=== PATIENT | female | born 1955 | race Caucasian/White ===

== ENCOUNTER 2020-05-28 15:22 | Emergency (ER) | payer MEDICARE, MEDICAID ==
[~2020-05-28] VITALS: Ht 152.4 cm; Wt 67.0 kg
[~2020-05-28 15:22] MED LIST: ALBU90AE IH; BUPR200T PO; CALC-793 PO; CARV3.1289 PO; CYCL-394 PO; DIVA-76 PO; GABA-532 PO; MELO-100 PO; OLAN15TA3 PO; SPIIN INH
--- NOTE | 2020-05-28 16:13 | NUR ---
pt is being seen by provider LIZET Buck at bedside pt is cooperative
[2020-05-28] MEDS ORDERED: LORazepam 1 MG tablet PO ONE (16:20)
[2020-05-28] MEDS ORDERED: acetaminophen 325mg tablet PO ONE (16:20)
[2020-05-28 16:35] LABS: BASOPHILS # (AUTO) 0.1 X10'3 (0-0.2); EOSINOPHILS # (AUTO) 0.2 X10'3 (0-0.9); EOSINOPHILS % (AUTO) 2.7 % (0-6); HEMATOCRIT 40.9 % (35.0-45.0); HEMOGLOBIN 13.6 g/dl (12.0-16.0); LYMPHOCYTES # (AUTO) 2.2 X10'3 (1.1-4.8); LYMPHOCYTES % (AUTO) 24.8 % (21-51); MEAN CORPUSCULAR HEMOGLOBIN 31.9 PG (27.0-31.0); MEAN CORPUSCULAR HGB CONC 33.2 g/dL (33.0-36.5); MEAN CORPUSCULAR VOLUME 96.1 FL (78-98); MEAN PLATELET VOLUME 7.8 FL (7.4-10.4); MONOCYTES # (AUTO) 0.7 X10'3 (0-0.9); MONOCYTES % (AUTO) 8.5 % (2-12); NEUTROPHILS # (AUTO) 5.5 X10'3 (1.8-7.7); PLATELET COUNT 321 X10'3 (140-440); RED BLOOD COUNT 4.25 X10'6 (4.20-5.60); WHITE BLOOD COUNT 8.7 X10'3 (4.5-11.0)
[2020-05-28] MEDS ORDERED: ATOR40TA PO (16:35)
[2020-05-28] MEDS ORDERED: CARV-50 PO (16:35)
[2020-05-28] MEDS ORDERED: QUET-1 PO (16:35)
[2020-05-28 16:39] LABS: ALANINE AMINOTRANSFERASE 48 U/L (12-78); ALBUMIN 3.6 G/DL (3.4-5.0); ALBUMIN/GLOBULIN RATIO 0.9 (1.1-1.5); ALKALINE PHOSPHATASE 153 IU/L (46-116); ANION GAP 9 (8-16); ASPARTATE AMINO TRANSFERASE 39 U/L (10-37); BILIRUBIN,TOTAL 0.4 MG/DL (0.1-1.0); BLOOD UREA NITROGEN 13 MG/DL (7-18); CALCIUM 9.2 MG/DL (8.5-10.1); CHLORIDE 108 MMOL/L (99-107); CREATININE 1.44 MG/DL (0.40-0.90); GLUCOSE 88 MG/DL (70-104); POTASSIUM 4.7 MMOL/L (3.5-5.1); SODIUM 142 MMOL/L (135-145); TOTAL PROTEIN 7.5 G/DL (6.4-8.2); eGFR 36 ML/MIN
[2020-05-28] MEDS ORDERED: LISI1TAB32 PO (16:44)
[2020-05-28] MEDS ORDERED: MIRT45TA83 PO (16:45)
[2020-05-28] MEDS ORDERED: PANT20TA3 PO (16:46)
[2020-05-28 16:48] LABS: ETHANOL < 0.010 GM/DL (0.0-0.010)
[2020-05-28] MEDS ORDERED: CLON-529 PO (16:48)
--- NOTE | 2020-05-28 16:57 | NUR ---
pt is supine in bed, no s/s of agitation observed
[2020-05-28] MEDS ORDERED: albuterol 2.5 MG/3 ML nebule NEB PRN (17:20)
[2020-05-28] MEDS ORDERED: ipratropium 0.5 MG/2.5ML nebule IH PRN (17:30)
--- NOTE | 2020-05-28 17:59 | NUR ---
pt is laying on her rightside, sleeping, regular breathing present
--- NOTE | 2020-05-28 19:15 | NUR ---
BREAKING PRIMARY RN. PT'S RESTING WITH NO SIGNS OF DISTRESS OR DISCOMFORT. WILL CONTINUE TO MONITOR.
[2020-05-28] MEDS: buPROPion SR 100mg tab PO SCH (20:14)
[2020-05-28] MEDS: cloNIDine 0.1 mg tablet PO SCH (20:14)
[2020-05-28] MEDS: carVEDilol 3.125mg tablet PO SCH (20:15)
[2020-05-28] MEDS: gabapentin 300mg capsule PO SCH (20:15)
--- NOTE | 2020-05-28 20:15 | NUR ---
pt was woken up to take meds, she was acceting of care, no anxiety apparent, laid back down and went to sleep
[2020-05-28] MEDS ORDERED: quetiapine 100mg tablet PO SCH (21:00)
[2020-05-28] MEDS ORDERED: mirtazapine 15mg tablet PO SCH (21:00)
[2020-05-28] MEDS ORDERED: olanzapine 10mg tablet PO SCH (21:00)
--- NOTE | 2020-05-28 21:11 | NUR ---
pt sleeping on her right side, no s/s anxiety
--- NOTE | 2020-05-28 22:05 | NUR ---
BREAKING PRIMARY RN. PT SLEEPING WITH NO SIGNS OF DISTRESS OR DISCOMFORT. WILL CONTINUE TO MONITOR.
--- NOTE | 2020-05-28 22:57 | NUR ---
pt is sleeping regular breathing present, will continue to monitor
--- NOTE | 2020-05-28 23:56 | NUR ---
TAKING OVER PT'S CARE; CONTINUES TO REST WITH NO SIGNS OF DISTRESS OR DISCOMFORT. WILL CONTINUE TO MONITOR.
--- NOTE | 2020-05-29 00:40 | NUR ---
PT CONTINUES TO REST ON RIGHT SIDE. NO SIGNS OF DISTRESS OR DISCOMFORT. WILL CONTINUE TO MONITOR.
--- NOTE | 2020-05-29 01:18 | NUR ---
PATIENT ON RIGHT SIDED QUINONEZ,RESPIRATIONS REGULAR.
--- NOTE | 2020-05-29 02:33 | NUR ---
PT SLEEPING ON LEFT SIDE; WITH NO SIGNS OF DISTRESS OR DISCOMFORT. WILL CONTINUE TO MONITOR.
--- NOTE | 2020-05-29 03:49 | NUR ---
PT CONTINUES TO SLEEP ON RIGHT SIDE WITH NO SIGNS OF DISTRESS OR DISCOMFORT. WILL CONTINUE TO MONITOR.
--- NOTE | 2020-05-29 06:21 | NUR ---
TAKEN OVER FROM JAI RN ,PT SLEEPING IN BED IN RGT LATERAL POSITION ,NO DISTRESS NOTED RR UNLABORED AND EVEN.
[2020-05-29] MEDS ORDERED: pantoprazole 40mg Tablet.DR PO SCH (07:30)
[2020-05-29] MEDS: buPROPion SR 100mg tab PO SCH (07:54)
[2020-05-29] MEDS: cloNIDine 0.1 mg tablet PO SCH (07:54)
[2020-05-29] MEDS: gabapentin 300mg capsule PO SCH (07:56)
[2020-05-29] MEDS: carVEDilol 3.125mg tablet PO SCH (07:56)
[2020-05-29] MEDS ORDERED: atorvastatin 20mg tablet PO SCH (08:00)
[2020-05-29] MEDS ORDERED: lisinopril 10 MG tablet PO SCH (08:00)
[2020-05-29] MEDS ORDERED: HYDROchlorothiazide 12.5mg capsule PO SCH (08:00)
--- NOTE | 2020-05-29 08:01 | NUR ---
pt morning meds given with gram crackers and orange juice ,pt tray is not here ,pt up in bed ,went to use restroom able to collect the urine sample.pt cooperative ,obey commands,denies any concern at this time.
[2020-05-29 08:03] VITALS: BP 156/87
[2020-05-29 08:47] LABS: CLARITY,URINE CLOUDY (Clear); COLOR,URINE YELLOW (Yellow); GLUCOSE, URINE NEGATIVE (Neg); KETONES,URINE NEGATIVE (Neg); LEUKOCYTE ESTERASE ,URINE TRACE (Neg); NITRITES, URINE NEGATIVE (Neg); OCCULT BLOOD,URINE NEGATIVE (Neg); PH,URINE 7.5 (4.8-8.0); PROTEIN,URINE NEGATIVE (Neg); UROBILINOGEN,URINE 0.2 E.U/dL (0.2-1.0)
[2020-05-29 08:49] LABS: UA COLLECTION TYPE CLN CATCH MIDSTREAM
[2020-05-29 08:53] LABS: URINE AMPHETAMINE SCREEN NEGATIVE (Neg); URINE BARBITUATE SCREEN NEGATIVE (Neg); URINE BENZODIAZEPINES SCREEN NEGATIVE (Neg); URINE CANNABINOID SCREEN POSITIVE (Neg); URINE COCAINE SCREEN NEGATIVE (Neg); URINE METHADONE SCREEN NEGATIVE (Neg); URINE OPIATE SCREEN NEGATIVE (Neg); URINE PHENCYCLIDINE SCREEN NEGATIVE (Neg)
[2020-05-29 08:56] LABS: BACTERIA,URINE 2+ /HPF (Neg); MUCUS STRANDS MODERATE /LPF (Neg); RBC,URINE 0-2 /HPF (0-2); SQUAMOUS EPITHELIAL CELL,UR MANY /LPF (FEW); WBC,URINE 0-4 /HPF (0-4)
[2020-05-29 08:57] LABS: TRANSITIONAL EPI CELLS,URINE FEW /HPF
[2020-05-29] MEDS ORDERED: ALB0.5UD IH (15:16)
[2020-05-29] MEDS ORDERED: CARV3.12 PO (15:16)
[2020-05-29] MEDS ORDERED: PANT-47 PO (15:16)
== END 2020-05-29 09:28 | disposition home or self-care (01) ==
LOC: ER 15:23
DX: R45.851 Suicidal ideations (principal); J45.909 Unspecified asthma, uncomplicated; G89.29 Other chronic pain; F31.9 Bipolar disorder, unspecified; F20.9 Schizophrenia, unspecified; F12.90 Cannabis use, unspecified, uncomplicated; Z86.69 Personal history of other diseases of the nervous system and sense organs; Z98.890 Other specified postprocedural states; Z56.0 Unemployment, unspecified; Z88.5 Allergy status to narcotic agent; Z88.6 Allergy status to analgesic agent; Z79.899 Other long term (current) drug therapy
CPT/HCPCS: 36415; 80053; 80305; 80320; 81001; 84443; 85025; 94760; 99285

== ENCOUNTER 2020-05-29 01:08 | Inpatient (IN) | payer MEDICARE, MEDICAID ==
[~2020-05-29] VITALS: Ht 152.4 cm; Wt 68.9 kg
[~2020-05-29 01:08] MED LIST changes: +ATOR40TA PO; -CALC-793 PO; +CLON-529 PO; -CYCL-394 PO; -DIVA-76 PO; +LISI1TAB32 PO; -MELO-100 PO; +MIRT45TA83 PO; +PANT20TA3 PO; +QUET-1 PO
--- NOTE | 2020-05-29 09:25 | NUR ---
Admission Note: Pt. admitted from the ER at approximately 0925, brought up in a W/C by Sly Durbin and security. Safety check and belongings inventoried by Sly Durbin (pt. had some marijuana in her possession and did not have anyone available to come and pick it up, so it was given to security to be destroyed). She has 4 rings on bilateral fingers which she was unable to get off, they remain with the pt., but are added to pt's inventory list. Pt. presented to the ER after being referred by her psychiatrist, Dr. Jacinto. She reported depression and S/I during the past couple of months. Also, A/VILLAREAL that tell her to, "Sit in the middle of the street and see what happens." Pt. does admit to a history of S/A as well. Pt. was compliant with the admission process, however affect flat and she appears depressed and anxious. She continues to report S/I and command A/VILLAREAL, and rates as a high suicide risk on the [facility] Suicide Assessment. However, pt. is able to contract for safety while on the unit, LIZET Duke notified and has ordered Q 15min safety checks at this time (notify her of any changes). Pt. is a daily smoker and uses marijuana, last use was yesterday. She has a chronic non-productive cough, however denies any SOB, V/S are WNL, and lung sounds are clear (pt. compliant with wearing a mask while on the unit, will continue to monitor). Pt. does wear oxygen at HS via nasal cannula, LIZET Duke is aware (order for 1-2 Liters at HS, titrate to keep oxygen saturation above 92%). Pt. also uses a cane at home, will obtain a FWW from PT for pt's use.
[2020-05-29] MEDS ORDERED: mag hydrox/Alum hydrox/simeth 30ml oral suspension PO PRN (09:50)
[2020-05-29] MEDS ORDERED: magnesium hydroxide 30ml (MOM) UD suspension PO PRN (09:50)
[2020-05-29 10:51] VITALS: BP 118/82
[2020-05-29] MEDS: LORazepam 1 MG tablet PO PRN ×3 (11:21→20:27)
[2020-05-29] MEDS: acetaminophen 325mg tablet PO PRN (11:22)
--- NOTE | 2020-05-29 12:33 | NUR ---
Pt. reported anxiety and exhibited anxiety AEB by constant muscle movements while sitting. PRN Ativan 1mg administered with some effectiveness, however pt. continued to report/exhibit anxiety, additional MRX1 order for Ativan 1mg administered, will monitor.
--- NOTE | 2020-05-29 14:25 | NUR ---
Malnutrition Consult "15 pound wt loss r/t decreased appetite": Pt admit w/ SI hx COPD, congenital heart failure, HTN, smoking, and prior SI per EMR. Pt has no significant weakness, no edema, skin intact, BMI 29 via standing scale wt this admit, and well-developed/well-nourished per MD note. Pt has no accurate wt hx and refused breakfast this AM since ate prior to transfer in ER per RN note. At this time pt does not meet minimum malnutrition criteria. Will continue to monitor. Addendum: 05/29/20 at [address] Amended: Links added.
[2020-05-29] MEDS ORDERED: loperamide 2mg capsule PO PRN (14:40)
[2020-05-29] MEDS ORDERED: ALB0.5UD IH (15:16)
[2020-05-29] MEDS ORDERED: PANT-47 PO (15:16)
[2020-05-29] MEDS ORDERED: CARV3.12 PO (15:16)
[2020-05-29] MEDS ORDERED: ipratropium 0.5 MG/2.5ML nebule IH PRN (16:15)
[2020-05-29 19:56] VITALS: BP 107/58
[2020-05-29] MEDS: cloNIDine 0.1 mg tablet PO SCH (20:00)
[2020-05-29] MEDS: carVEDilol 3.125mg tablet PO SCH (20:26)
[2020-05-29] MEDS: buPROPion SR 100mg tab PO SCH (20:26)
[2020-05-29] MEDS: mirtazapine 15mg tablet PO SCH (20:26)
[2020-05-29] MEDS: olanzapine 10mg tablet PO SCH (20:26)
[2020-05-29] MEDS: quetiapine 100mg tablet PO SCH (20:26)
[2020-05-29] MEDS: gabapentin 300mg capsule PO SCH (20:26)
--- NOTE | 2020-05-30 | NUR ---
Nursing Progress Note: Macie Legal hold: Vol Client on voluntary status for DTS. Report received from CASEY Isaac with use of SBAR. Why are they here: Pt. presented to the ER after being referred by her psychiatrist, Dr. Jacinto. She reported depression and S/I during the past couple of months. Also, A/VILLAREAL that tell her to, "Sit in the middle of the street and see what happens." Pt. does admit to a history of S/A as well. Assessment What has happened this shift: Pt was in her room resting during shift change. Respirations are even an unlabored. She was cooperative during 1:1 physical assessment and took her HS meds. She also requested Ativan as she was having increased anxiety. She rates it a 8/10. When asked if she was feeling like hurting herself or others she states not right now. Asked patient about hallucinations and she endorses auditory hallucinations. She states that the voices tell her to hurt herself. Assured patient that she was in a safe place and she contracted to safety. Oxygen administration was initiated tonight and its set at 2/L/min. Pt does not complain of SOB but her oxygen saturation was 90%. Encouraged pt to eat as she has been refusing most of her meal but she refused. Pt remained isolative to her room for the remainder of the evening. S/I, H/I: Denies "not right now" A/VH: Endorses Auditory hallucinations that tell her to hurt herself Sleep: Currently sleeping, see sleep assessment for total hours ADL's: Independent, uses walker Group attendance: None during manager night Were meds taken: Yes Any med S/E: none reported or observed Mental Status Exam Appearance: Somewhat disheveled, wearing green unit scrubs, hair is messy and unkempt Eye contact: Good direct Behavior: Guarded, isolative Speech: Clear, normal rate and rhythm Mood: Depressed, anxious, somewhat irritable Affect: Flat Thought process: Mostly linear Thought Content: Meds, managing her anxiety and pain Cognition: Alert and oriented X3 Insight: Poor Judgment: Poor Interventions PRN's used: Ativan X1 Therapeutic interventions: 1:1 assessment, encouragement to express thoughts and feelings, active listening, monitoring of behaviors with intervention; limit setting and redirection as needed, maintained Q 15 minute safety checks, monitor medication therapeutic and side effects. Restraints/seclusion/emergency medication: N/A Justification of Continued Inpatient Treatment: Pt needs stabilization, she continues to require a safe and supportive environment with medication adjustments and monitoring to decrease risk of rehospitalization.
[2020-05-30] MEDS: temazepam 15mg capsule PO PRN ×2 (01:19→20:51)
[2020-05-30 08:00] VITALS: BP 113/60
[2020-05-30] MEDS: acetaminophen 325mg tablet PO PRN ×3 (08:18→20:51)
[2020-05-30] MEDS: LORazepam 1 MG tablet PO PRN ×2 (08:18→16:10)
[2020-05-30 08:35] LABS: CHOL/HDL RATIO 4.1 (0.00-4.99); CHOLESTEROL 154 MG/DL (0-200); HDL CHOLESTEROL 38 MG/DL (35-60); LDL CHOLESTEROL 87 MG/DL (50-100); TRIGLYCERIDES 217 MG/DL (20-135)
[2020-05-30 08:37] LABS: HEMOGLOBIN A1C 5.9 % (4.5-6.2)
[2020-05-30 09:00] VITALS: BP 140/88
[2020-05-30] MEDS: cloNIDine 0.1 mg tablet PO SCH ×2 (09:05→20:00)
[2020-05-30] MEDS: carVEDilol 3.125mg tablet PO SCH ×2 (09:05→20:44)
[2020-05-30] MEDS: HYDROchlorothiazide 12.5mg capsule PO SCH (09:06)
[2020-05-30] MEDS: atorvastatin 20mg tablet PO SCH (09:06)
[2020-05-30] MEDS: lisinopril 10 MG tablet PO SCH (09:06)
[2020-05-30] MEDS: gabapentin 300mg capsule PO SCH ×3 (09:07→20:44)
[2020-05-30] MEDS: pantoprazole 40mg Tablet.DR PO SCH (09:07)
[2020-05-30] MEDS: buPROPion SR 100mg tab PO SCH ×2 (09:07→20:44)
[2020-05-30] MEDS: albuterol 2.5 MG/3 ML nebule NEB PRN (09:31)
[2020-05-30] MEDS ORDERED: pneumococcal 23-VAL P-sac vacc 25 mcg/0.5ml vial IMVAC ONE (10:00)
--- NOTE | 2020-05-30 13:53 | NUR ---
Nursing Progress Note: Legal hold: Voluntary Client on voluntary status for DTS Report received from nurse with use of SBAR: Kizzy Guzmán RN Why are they here: Pt. presented to the ER after being referred by her psychiatrist, Dr. Jacinto. She reported depression and S/I during the past couple of months. Also, A/VILLAREAL that tell her to, "Sit in the middle of the street and see what happens." Pt. does admit to a history of S/A as well. Assessment What has happened this shift: Received pt. asleep in bed at the beginning of the shift oxygen via nasal cannula in place. She awoke for breakfast and 1:1 completed at bedside. Pt. presents as anxious, fatigued, guarded, and withdrawn. She reports anxiety 05/23 and appears visibly anxious AEB continuous body movements, she states, "I woke up thrashing and shaking like I was on a jungle gym." PRN Ativan administered with effectiveness, pt. also reports chronic back pain and Tylenol administered with some effectiveness. Pt. reports S/I with no current plan, she denies H/I, however reports ongoing depression and lack of appetite (eating approximately 25-50% of meals). Pt. also reports ongoing A/VILLAREAL, when questioned further she states, "They tell me I'm worthless and I should just ." Pt. continues to isolate in her room throughout the shift, however does attend meals interacting minimally with others. She requested additional Ativan in the afternoon. Pt's lung sounds present with bilateral wheezes, PRN BT administered with effectiveness. Pneumonia Vaccine administered in rt. deltoid per LIZET Duke, will endorse to Noc shift. S/I, H/I: Reports S/I without a plan A/VH: Pt. also reports ongoing A/VILLAREAL, when questioned further she states, "They tell me I'm worthless and I should just ." Sleep: Pt. reports restless sleep, sleep hours are 5.75 ADL's: Uses FWW to ambulate, fall precautions in place. Group attendance: No Were meds taken: Yes Any med S/E: None Mental Status Exam Appearance: Hair disheveled r/t laying in bed, appropriately dressed Eye contact: Fair Behavior: Anxious, fatigued, guarded, and withdrawn Speech: Soft, pt. responds with minimal 1-2 word answers Mood: Depressed, anxious, and guarded Affect: Flat Thought process: Poverty of thought Thought Content: Ongoing depression, anxiety, and command A/VILLAREAL Cognition: A&O X4 Insight: Poor Judgment: Poor Interventions PRN's used: Tylenol and Ativan X2 Therapeutic interventions: Maintained a safe and supportive environment, ensured contract for safety, provided clear and simple instructions, oriented to reality, monitored behaviors and need for intervention, encouraged participation on the unit, and maintained fall precautions and Q 15min safety checks. Restraints/seclusion/emergency medication: N/A Justification of Continued Inpatient Treatment: Pt. requires interruption of current crises, medication adjustments, and a safe and supportive environment.
[2020-05-30 16:55] VITALS: BP_SYST 108; BP_SYST 129; BP_DIAS 72; BP_DIAS 84
--- NOTE | 2020-05-30 18:44 | NUR ---
FALL: Pt. was ambulating in hallway to the MD's office at 1655 with Sachi ruano. Pt. was not using her walker at this time. Tech turned away from patient, and pt. suddenly became dizzy and fell to the floor on landing on her bottom. V/S were obtained and were WNL, and pt. was negative for orthostatic hypotension. Pt. was helped to her feet by two staff members and was able to ambulate to doctor's office using FWW. Pt. did not obtain any visible injuries, per LIZET Duke X-ray of sacrum and coccyx ordered. X-ray will be unable to read tomorrow, LIZET Duke notified. Pt. educated on use of her walker at all times with LIZET Duke present and Sachi ruano present, pt. reports understanding. Pt. given an ice pack to place on her back with effectiveness. Fall band, non-skid socks, and bed low and locked interventions are in place, will endorse to noc shift and continue to monitor.
[2020-05-30 20:00] VITALS: BP 108/56
[2020-05-30] MEDS: quetiapine 100mg tablet PO SCH (20:43)
[2020-05-30] MEDS: mirtazapine 15mg tablet PO SCH (20:44)
[2020-05-30] MEDS: olanzapine 10mg tablet PO SCH (20:44)
[2020-05-30] MEDS ORDERED: CLOZAPINE 25 MG oral disintegrating tablet PO SCH (21:00)
--- NOTE | 2020-05-31 00:24 | NUR ---
Nursing Progress Note: Macie Legal hold: Vol Client on voluntary status for DTS. Report received from CASEY Isaac with use of SBAR. Why are they here: Pt. presented to the ER after being referred by her psychiatrist, Dr. Jacinto. She reported depression and S/I during the past couple of months. Also, A/VILLAREAL that tell her to, "Sit in the middle of the street and see what happens." Pt. does admit to a history of S/A as well. Assessment What has happened this shift: Pt was in her room sleeping during shift change. Respirations appear to be even and unlabored. PT was c/o 8/10 anxiety and 8/10 pain. Her anxiety medication was 2 hours too early so it could not be administered but she did get Tylenol for her back pain. She states that since she had the fall today she has been feeling more anxious. Pt was cooperative during 1:1 physical assessment and took all her HS meds. She still appears very depressed. Endorses auditory hallucinations, voices that tell her not to take her pills. Denies any S/I, H/I. Pt continues to be on 2L/ min oxygen administration at night. Encouraged pt to use her walker and to also use call light whenever she needed help getting up to prevent any more falls. She remained isolative to her room and was not observed out of her room for the rest of the evening. At around 00:15, pt apparently had an accident, she was unable to make it to the toilet. Whole bed change was done and pt requested to take a shower. She did state her pain and anxiety levels were pretty high and requested medication for it. Ativan and Tylenol were administered with effectiveness. She returned to bed after she received these. S/I, H/I: Denies A/VH: Endorses Auditory hallucinations that tell her to hurt herself Sleep: Currently sleeping, see sleep assessment for total hours ADL's: Independent, uses walker Group attendance: None during caustic cresylate shift superintendent Were meds taken: Yes Any med S/E: none reported or observed Mental Status Exam Appearance: Somewhat disheveled, wearing green unit scrubs, hair is messy and unkempt Eye contact: Good direct Behavior: Pleasant, cooperative, guarded, isolative Speech: Clear, normal rate and rhythm Mood: Depressed, anxious, fatigued Affect: Blunted Thought process: Mostly linear Thought Content: Meds, her recent fall, trying to manage her pain and anxiety Cognition: Alert and oriented X3 Insight: Poor Judgment: Poor Interventions PRN's used: Ativan X1 Therapeutic interventions: 1:1 assessment, encouragement to express thoughts and feelings, active listening, monitoring of behaviors with intervention; limit setting and redirection as needed, maintained Q 15 minute safety checks, monitor medication therapeutic and side effects. Restraints/seclusion/emergency medication: N/A Justification of Continued Inpatient Treatment: Pt needs stabilization, she continues to require a safe and supportive environment with medication adjustments and monitoring to decrease risk of rehospitalization.
[2020-05-31] MEDS: LORazepam 1 MG tablet PO PRN ×4 (00:43→20:23)
[2020-05-31] MEDS: acetaminophen 325mg tablet PO PRN ×2 (00:48→08:04)
[2020-05-31 08:00] VITALS: BP 137/54
[2020-05-31] MEDS: cloNIDine 0.1 mg tablet PO SCH (08:00)
[2020-05-31 08:37] LABS: BASOPHILS # (AUTO) 0.2 X10'3 (0-0.2); BASOPHILS % (AUTO) 1.5 % (0-1); EOSINOPHILS # (AUTO) 0.1 X10'3 (0-0.9); EOSINOPHILS % (AUTO) 1.3 % (0-6); HEMATOCRIT 44.2 % (35.0-45.0); HEMOGLOBIN 14.8 g/dl (12.0-16.0); LYMPHOCYTES # (AUTO) 2.3 X10'3 (1.1-4.8); LYMPHOCYTES % (AUTO) 21.4 % (21-51); MEAN CORPUSCULAR HEMOGLOBIN 32.3 PG (27.0-31.0); MEAN CORPUSCULAR HGB CONC 33.6 g/dL (33.0-36.5); MEAN CORPUSCULAR VOLUME 96.2 FL (78-98); MEAN PLATELET VOLUME 8.2 FL (7.4-10.4); MONOCYTES % (AUTO) 8.9 % (2-12); NEUTROPHILS # (AUTO) 7.3 X10'3 (1.8-7.7); NEUTROPHILS % (AUTO) 66.9 % (42-75); PLATELET COUNT 363 X10'3 (140-440); RED BLOOD COUNT 4.59 X10'6 (4.20-5.60); RED CELL DISTRIBUTION WIDTH 14.6 % (11.5-14.5); WHITE BLOOD COUNT 10.8 X10'3 (4.5-11.0)
[2020-05-31 09:10] VITALS: BP 110/70
[2020-05-31] MEDS: pantoprazole 40mg Tablet.DR PO SCH (09:15)
[2020-05-31] MEDS: buPROPion SR 100mg tab PO SCH ×2 (09:16→20:21)
[2020-05-31] MEDS: atorvastatin 20mg tablet PO SCH (09:16)
[2020-05-31] MEDS: HYDROchlorothiazide 12.5mg capsule PO SCH (09:16)
[2020-05-31] MEDS: gabapentin 300mg capsule PO SCH ×3 (09:16→20:21)
[2020-05-31] MEDS: lisinopril 10 MG tablet PO SCH (09:17)
[2020-05-31] MEDS: carVEDilol 3.125mg tablet PO SCH ×2 (09:19→20:20)
[2020-05-31] MEDS: LIDOcaine 5% patch TP SCH (15:53)
--- NOTE | 2020-05-31 15:55 | NUR ---
Nursing Progress Note: Legal hold: Voluntary Client on voluntary status for DTS Report received from nurse with use of SBAR: Kizzy Guzmán RN Why are they here: Pt. presented to the ER after being referred by her psychiatrist, Dr. Jacinto. She reported depression and S/I during the past couple of months. Also, A/VILLAREAL that tell her to, "Sit in the middle of the street and see what happens." Pt. does admit to a history of S/A as well. Assessment What has happened this shift: Received pt. asleep in bed at the beginning of the shift, she was awoken to attend breakfast, however refused. Pt. was tearful and stated, "I hurt," she reported chronic pain in her lower rt. back, as well as pain in her rt. arm at previous injection site (site assessed and no redness or rash present and V/S WNL). Obtained new order for Lidocaine Patch daily for lower back, x-ray of sacrum and coccyx was WNL. Pt. also reports increased anxiety, does not appear visibly anxious, she states, "I'm anxious inside, not on the outside." PRN Ativan administered with minimal effectiveness, additional MRX1 order administered later with effectiveness. Pt. continues to present as anxious, fatigued, guarded, and withdrawn. She is also intermittently irritable at times. 1:1 completed at bedside, pt. continues to report S/I without a plan, and command A/VILLAREAL telling her that "She is worthless." Pt. also continues to have a decreased appetite (eating approximately 50% of meals). She remained in bed throughout the morning, however was up intermittently in the afternoon watching TV and coloring with others. Pt. later approaches this screen writer and reports tactile hallucinations, states, "I feel like I have bugs crawling on me," endorsed to LIZET Duke and will monitor. Pt. must be occasionally reminded to use FWW, fall precautions remain in place. S/I, H/I: Reports S/I without a plan A/VH: Reports command A/VILLAREAL telling her that "She is worthless." Sleep: Pt. continues to report restless sleep, sleep hours are 7.75 ADL's: Uses FWW to ambulate, fall precautions in place. Group attendance: No Were meds taken: Held Clonidine r/t decreases BP of 110/70, LIZET Duke notified and medication discontinued Any med S/E: None Mental Status Exam Appearance: Hair disheveled r/t laying in bed, appropriately dressed Eye contact: Fair Behavior: Anxious, fatigued, guarded, withdrawn, and slightly irritable at times Speech: Soft, pt. responds with minimal 1-2 word answers Mood: Guarded and anxious, slightly irritable at times Affect: Flat Thought process: Poverty of thought Thought Content: Ongoing depression, anxiety, command A/VILLAREAL, and tactile H/A Cognition: A&O X4 Insight: Poor Judgment: Poor Interventions PRN's used: Tylenol and Ativan X2 Therapeutic interventions: Maintained a safe and supportive environment, ensured contract for safety, provided clear and simple instructions, oriented to reality, monitored behaviors and need for intervention, encouraged participation on the unit, obtained an order for a Lidocaine Patch daily, and maintained fall precautions and Q 15min safety checks. Restraints/seclusion/emergency medication: N/A Justification of Continued Inpatient Treatment: Pt. requires interruption of current crises, medication adjustments, and a safe and supportive environment.
[2020-05-31 19:48] VITALS: BP 130/59
[2020-05-31] MEDS: docusate sod 100mg capsule PO SCH (20:21)
[2020-05-31] MEDS: quetiapine 100mg tablet PO SCH (20:21)
[2020-05-31] MEDS: olanzapine 10mg tablet PO SCH (20:21)
[2020-05-31] MEDS: benztropine 1mg tablet PO SCH (20:21)
[2020-05-31] MEDS: mirtazapine 15mg tablet PO SCH (20:22)
[2020-05-31] MEDS ORDERED: CLOZAPINE 25 MG oral disintegrating tablet PO SCH (21:00)
--- NOTE | 2020-06-01 00:11 | NUR ---
yohan Progress Note: Macie Legal hold: Voluntary Client on voluntary status for DTS. Report received from CASEY Isaac with use of SBAR. Why are they here: Pt. presented to the ER after being referred by her psychiatrist, Dr. Jacinto. She reported depression and S/I during the past couple of months. Also, A/VILLAREAL that tell her to, "Sit in the middle of the street and see what happens." Pt. does admit to a history of S/A as well. Assessment What has happened this shift: Pt was ambulating the halls during shift change. Pt states she is not doing ok. The voices are getting really bad, they are telling me to hurt myself. Also I lost my cat, I thought I brought it in here when I came up here. Assured pt that her cat could not have come here as animals are not allowed. She states yeah maybe hes at home then. She endorses S/I due to the commanding A/H. Denies any V/H. She was cooperative during 1:1 physical assessment and took all her meds. She rates her anxiety a 06/23. PT walked up to get her snack. She was observed more out of the her room today then other days. Reminded pt a couple of times to use her FWW while ambulating and also to keep her oxygen during the night. S/I, H/I: Endorse S/I A/VH: Endorses Auditory hallucinations that tell her to hurt herself Sleep: Currently sleeping, see sleep assessment for total hours ADL's: Independent, uses walker Group attendance: None during night club manager Were meds taken: Yes Any med S/E: none reported or observed Mental Status Exam Appearance: Somewhat disheveled, wearing personal clothing, hair is pulled back. Eye contact: Good direct Behavior: Pleasant, cooperative, confused, more social today Speech: Clear, normal rate and rhythm Mood: Depressed, anxious, states she is not doing too good Affect: Blunted Thought process: Mostly linear Thought Content: Meds, perseverating on getting a phone book from her wallet, her cat Cognition: Alert and oriented X3 Insight: Poor Judgment: Poor Interventions PRN's used: Ativan X1 Therapeutic interventions: 1:1 assessment, encouragement to express thoughts and feelings, active listening, monitoring of behaviors with intervention; limit setting and redirection as needed, maintained Q 15 minute safety checks, monitor medication therapeutic and side effects. Restraints/seclusion/emergency medication: N/A Justification of Continued Inpatient Treatment: Pt needs stabilization, she continues to require a safe and supportive environment with medication adjustments and monitoring to decrease risk of rehospitalization.
[2020-06-01] MEDS: acetaminophen 325mg tablet PO PRN (01:55)
[2020-06-01 07:45] VITALS: BP 136/74
[2020-06-01] MEDS: carVEDilol 3.125mg tablet PO SCH ×2 (07:52→20:21)
[2020-06-01] MEDS: LORazepam 1 MG tablet PO PRN ×3 (07:52→23:21)
[2020-06-01] MEDS: buPROPion SR 100mg tab PO SCH ×2 (07:52→20:21)
[2020-06-01] MEDS: lisinopril 5mg tablet PO SCH (07:52)
[2020-06-01] MEDS: docusate sod 100mg capsule PO SCH ×2 (07:53→20:21)
[2020-06-01] MEDS: benztropine 1mg tablet PO SCH ×2 (07:54→20:20)
[2020-06-01] MEDS: pantoprazole 40mg Tablet.DR PO SCH (07:54)
[2020-06-01] MEDS: atorvastatin 20mg tablet PO SCH (07:54)
[2020-06-01] MEDS: gabapentin 300mg capsule PO SCH ×3 (07:54→20:21)
[2020-06-01] MEDS: LIDOcaine 5% patch TP SCH (07:55)
--- NOTE | 2020-06-01 17:19 | NUR ---
Nursing Progress Note: Legal hold: Voluntary Client on voluntary status for DTS Report received from CHICO Boyer with use of SBAR Why are they here: Pt. presented to the ER after being referred by her psychiatrist, Dr. Jacinto. She reported depression and S/I during the past couple of months. Also, A/VILLAREAL that tell her to, "Sit in the middle of the street and see what happens." Pt. does admit to a history of S/A as well. Assessment What has happened this shift: Received patient up in her room at shift, no distress noted. Pt. cooperative with care and 1:1 assessment. Patient ate breakfast and all meals in group room. Compliant with medications, Lidocaine patch applied to lower back. Pt. requested Ativan "I am just feeling anxious." PRN Ativan administered with effect. Endorses A/VH, "I see people walking and they are not there." "I hear people talking and they are not there." "They are the ones telling me to hurt myself." Continues to endorse SI with a plan to walk into traffic or cut her wrists. Pt. states she gets embarrassed because she can't always find her room. Pt. sitting in room states "I can't do this, I am anxious." Administered PRN Ativan with effect." S/I, H/I: Reports S/I - walk into traffic or cut wrists. A/VH: Reports command AH, "they are the ones telling me to hurt myself." Sleep: 5.0 hrs. per Sleep Assessment. Intermittent naps this shift. ADL's: Independent. Uses FWW to ambulate, fall precautions in place. Group attendance: No group on Tuesday. Were meds taken: Yes, without hesitation. Any med S/E: Pt. denies, none observed. Mental Status Exam Appearance: Hair disheveled r/t laying in bed, appropriately dressed in personal clothing Eye contact: Fair Behavior: Cooperative, walks halls then isolates back to room, calm. Speech: Clear, normal rate/rhythm. Mood: Depressed, guarded Affect: Flat Thought process: Poverty of thought Thought Content: AH Cognition: A&O X3 Insight: Poor Judgment: Poor Interventions PRN's used: Tylenol and Ativan X2 Therapeutic interventions: Maintained a safe and supportive environment, ensured contract for safety, provided clear and simple instructions, oriented to reality, monitored behaviors and need for intervention, encouraged participation on the unit, Q 15min safety checks. Restraints/seclusion/emergency medication: N/A Justification of Continued Inpatient Treatment: Patient requires interruption of current crises, medication adjustments, and a safe and supportive environment.
[2020-06-01 20:00] VITALS: BP 121/65
[2020-06-01] MEDS: mirtazapine 15mg tablet PO SCH (20:21)
[2020-06-01] MEDS: quetiapine 100mg tablet PO SCH (20:22)
[2020-06-01] MEDS: olanzapine 10mg tablet PO SCH (20:22)
[2020-06-01] MEDS ORDERED: CLOZAPINE 25 MG oral disintegrating tablet PO SCH (21:00)
--- NOTE | 2020-06-01 23:58 | NUR ---
Nursing Progress Note: Legal hold: Voluntary Client on voluntary status for DTS. Report received from CASEY Isaac with use of SBAR. Why are they here: Pt. presented to the ER after being referred by her psychiatrist, Dr. Jacinto. She reported depression and S/I during the past couple of months. Also, A/VILLAREAL that tell her to, "Sit in the middle of the street and see what happens." Pt. does admit to a history of S/A as well. Assessment What has happened this shift: The patient seen at bedside for 1:1. She was lying there curled up in a position. She states that she is dealing with a lot of voices right now. "They are telling me to get on a freeway and jump in front of cars to see what happens." She was left to deal with her voices per her request. Later, she was seen ambulating the halls and forgetting where her room is. The next time she was seen, she asked for pain medicine, but was disappointed to only have Tylenol. "Tylenol does not work for me, so I'm not gonna take it, just to waste it." S/I, H/I: Positive for SI. A/VH: Endorses Auditory hallucinations that tell her to hurt herself Sleep: See sleep assessment. ADL's: Independent, uses FWW. 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 Eye contact: Direct Behavior: Pleasant, cooperative, confused, more social today Speech: Clear, normal rate and rhythm Mood: Depressed. Affect: Blunted Thought process: Mostly linear Thought Content: Meds. Cognition: Alert and oriented X3 Insight: Poor Judgment: Poor Interventions PRN's used: Ativan X1 Therapeutic interventions: 1:1 assessment, encouragement to express thoughts and feelings, active listening, monitoring of behaviors with intervention; limit setting and redirection as needed, maintained Q 15 minute safety checks, monitor medication therapeutic and side effects. Restraints/seclusion/emergency medication: N/A Justification of Continued Inpatient Treatment: Pt needs stabilization, she continues to require a safe and supportive environment with medication adjustments and monitoring to decrease risk of rehospitalization.
[2020-06-02] MEDS: temazepam 15mg capsule PO PRN (01:06)
[2020-06-02 08:35] VITALS: BP 142/73
[2020-06-02] MEDS: carVEDilol 3.125mg tablet PO SCH ×2 (08:38→20:18)
[2020-06-02] MEDS: lisinopril 5mg tablet PO SCH (08:38)
[2020-06-02] MEDS: docusate sod 100mg capsule PO SCH ×2 (08:38→20:17)
[2020-06-02] MEDS: gabapentin 300mg capsule PO SCH ×3 (08:38→20:18)
[2020-06-02] MEDS: buPROPion SR 100mg tab PO SCH ×2 (08:38→20:18)
[2020-06-02] MEDS: benztropine 1mg tablet PO SCH ×2 (08:38→20:17)
[2020-06-02] MEDS: pantoprazole 40mg Tablet.DR PO SCH (08:38)
[2020-06-02] MEDS: atorvastatin 20mg tablet PO SCH (08:39)
[2020-06-02] MEDS: LIDOcaine 5% patch TP SCH (08:49)
--- NOTE | 2020-06-02 10:00 | NUR ---
Group Therapy: Process Group This Clinicians goals for this process group were as follows: (1) Ask scaling questions about Patients current anxiety, depression, and irritability symptoms as a check-in. (2) Share psychoeducation about self-efficacy, and ego strength. (3) Provide psychoeducation on Karpmans Drama triangleVictim, Persecutor, Rescuer dynamic. (4) Share psychoeducation on developing positive ego strengthpositive affirmations, positive self-talk, transitioning from a victim of circumstances to a survivor of circumstances. (5) Process Clients thoughts and reflections on this topic within the group milieu. Patient arrived to the process group with about 7 minutes remaining during group discussion. Patient moved with assistance from a walker. Patient was dressed in nondescript personal clothing that were appropriate for the milieu. Her hair was unkempt. Patient asked for a worksheet to be handed to her, which this Clinician provided to her--a handout with several examples of positive affirmations. Patient then verbalized loudly on a couple different occasions that another handout that this Clinician had provided to another Patient who walked out of the room was not hers. Patient's thought content was clear and concrete. It is this Clinician's impression that Patient may have been responding to internal stimuli, as he observed her darting her head around in varying directions as she sat at her table. Patient did not contribute to the discussion on ego strength and positive affirmations, nor did she provide scaling questions on her levels of anxiety, depression, and irritability. Ramakrishna Beth MA, MONTRELL Addendum: 06/02/20 at 1113 by Ramakrishna Beth Amended: Links added.
--- NOTE | 2020-06-02 16:15 | NUR ---
Nursing Progress Note: Legal hold: Voluntary Client on voluntary status for DTS Report received from CHICO Suazo with use of SBAR Why are they here: Pt. presented to the ER after being referred by her psychiatrist, Dr. Jacinto. She reported depression and S/I during the past couple of months. Also, A/VILLAREAL that tell her to, "Sit in the middle of the street and see what happens." Pt. does admit to a history of S/A as well. Assessment What has happened this shift: Received patient up in the villas[place] at shift change, pt. pacing with her FWW. When asked how pt. slept "not good had a hard time falling asleep." Per Sleep Assessment pt. slept 6.0. Pt. seems a little less anxious then yesterday, does not request PRN in the AM. Pt. ate her breakfast and all meals in group room. Pt. continues to endorse SI with a plan to "kill myself with a DUI or jump in the hanna." SI is r/t her AH "they are the one who tell me to hurt myself" (pt. points over this ticket writer's shoulder.). Pt. isolates to her room most of the shift and is becoming more visible on the unit, but keeps to her self. Pt. still talks about not being able to find her room, but observed less times going into other rooms. Patient became a little agitated "I just need a number out of my purse!" Pt. calmed after this and went and sat in her room writing her friend a letter. Pt. will have some clothing dropped off this evening. S/I, H/I: Reports S/I - "kill myself with a DUI or jump in the hanna." A/VH: Reports command AH, "they are the ones telling me to hurt myself." Sleep: 6.0 hrs. per Sleep Assessment. ADL's: Independent. Uses FWW to ambulate, fall precautions in place. Group attendance: Yes Were meds taken: Yes, without hesitation. Any med S/E: Pt. denies, none observed. Mental Status Exam Appearance: Hair disheveled r/t laying in bed, appropriately dressed in personal clothing Eye contact: Fair Behavior: Cooperative, walks halls then isolates back to room, calm. Speech: Clear, normal rate/rhythm. Mood: Less anxious, guarded, a little irritable. Affect: Flat Thought process: Poverty of thought Thought Content: AH Cognition: A&O X3 Insight: Poor Judgment: Poor Interventions PRN's used: None Therapeutic interventions: Maintained a safe and supportive environment, ensured contract for safety, provided clear and simple instructions, oriented to reality, monitored behaviors and need for intervention, encouraged participation on the unit, Q 15min safety checks. Restraints/seclusion/emergency medication: N/A Justification of Continued Inpatient Treatment: Patient requires interruption of current crises, medication adjustments, and a safe and supportive environment.
[2020-06-02] MEDS: LORazepam 1 MG tablet PO PRN (16:37)
--- NOTE | 2020-06-02 16:37 | NUR ---
Patient feeling anxious requested Ativan, "the voices."
[2020-06-02] MEDS ORDERED: quetiapine 100mg tablet PO ONE (18:55)
[2020-06-02 20:14] VITALS: BP 153/84
[2020-06-02] MEDS: mirtazapine 15mg tablet PO SCH (20:18)
[2020-06-02] MEDS: quetiapine 100mg tablet PO SCH (20:19)
[2020-06-02] MEDS: olanzapine 10mg tablet PO SCH (20:25)
[2020-06-02] MEDS: acetaminophen 325mg tablet PO PRN (20:26)
[2020-06-02] MEDS ORDERED: CLOZAPINE 100 MG TAB.RAPDIS PO SCH (21:00)
--- NOTE | 2020-06-02 23:58 | NUR ---
Nursing Progress Note: Legal hold: Voluntary Client on voluntary status for DTS. Report received from CHICO Sykes with use of SBAR. Why are they here: Pt. presented to the ER after being referred by her psychiatrist, Dr. Jacinto. She reported depression and S/I during the past couple of months. Also, A/VILLAREAL that tell her to, "Sit in the middle of the street and see what happens." Pt. does admit to a history of S/A as well. Assessment What has happened this shift: The patient was pacing the halls with her walker at shift change. She agreed to 1:1 assessment at bedside. "I'm hearing voices and I'm in pain, need I go on?" She was irritable and angry that nothing makes the voices go away. was called and order received for Seroquel 200mg now. She then continues, "Keyona Paul is in there telling everyone what to do, how to cook, set the table, where to sit, on and on. Captain Malone is another one. he's not so bad...he usually just stands around and watches with a smirk on his face. Then there's Lavelle, he's one of the worst. He's been around longer than any of them...he's the biggest bullshitter on earth. The patient stated little relief from Seroquel, but was given HS meds not long after. She has been in and out of bed pacing the halls. She appears unsteady, so a PCT is walking alongside to prevent fall. S/I, H/I: Positive for SI. "They tell me to" A/VH: Endorses Auditory hallucinations that tell her to hurt herself Sleep: See sleep assessment. ADL's: Independent, uses FWW. 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 Eye contact: Direct Behavior: Pleasant, cooperative, confused, irritated about voices, more social today Speech: Clear, normal rate and rhythm Mood: Depressed. Affect: Blunted Thought process: Mostly linear Thought Content: Meds. Cognition: Alert and oriented X3 Insight: Poor Judgment: Poor Interventions PRN's used: Ativan X1, Seroquel 200mg once Therapeutic interventions: 1:1 assessment, encouragement to express thoughts and feelings, active listening, monitoring of behaviors with intervention; limit setting and redirection as needed, maintained Q 15 minute safety checks, monitor medication therapeutic and side effects. Restraints/seclusion/emergency medication: N/A Justification of Continued Inpatient Treatment: Pt needs stabilization, she continues to require a safe and supportive environment with medication adjustments and monitoring to decrease risk of rehospitalization.
[2020-06-03] MEDS: LORazepam 1 MG tablet PO PRN ×2 (01:41→16:48)
[2020-06-03] MEDS: temazepam 15mg capsule PO PRN (01:41)
[2020-06-03 08:00] VITALS: BP 127/93
[2020-06-03] MEDS: buPROPion SR 100mg tab PO SCH ×2 (08:32→19:54)
[2020-06-03] MEDS: benztropine 1mg tablet PO SCH ×2 (08:33→19:53)
[2020-06-03] MEDS: carVEDilol 3.125mg tablet PO SCH ×2 (08:34→19:55)
[2020-06-03] MEDS: atorvastatin 20mg tablet PO SCH (08:34)
[2020-06-03] MEDS: gabapentin 300mg capsule PO SCH ×3 (08:34→20:00)
[2020-06-03] MEDS: docusate sod 100mg capsule PO SCH ×2 (08:34→19:53)
[2020-06-03] MEDS: pantoprazole 40mg Tablet.DR PO SCH (08:34)
[2020-06-03] MEDS: lisinopril 5mg tablet PO SCH (08:34)
[2020-06-03] MEDS: LIDOcaine 5% patch TP SCH (08:35)
--- NOTE | 2020-06-03 10:00 | NUR ---
Group Therapy: Process Group Tanner Clinicians goals for this process group were as follows: (1) Ask scaling questions about patients current anxiety, depression, and irritability symptoms as a check-in. (2) Share psychoeducation about three rules of brief solution-focused problem-solving: A) Stop doing what clearly isnt working, B) Do something different, C) If the different activity works, then do more of it. If it doesnt work, then go back to principle A). (3) Identify examples of thoughts, activities, and behaviors that people do that no longer work for them, or they create more problems than solutions. (4) Identify examples of thoughts, activities, and behaviors that may help create better emotional/behavioral outcomes and lead to good solutions to problems. (5) Engage patients in discussion of the topics shared within the group milieu. Patient identified experiencing the following levels of anxiety, depression, and anger/irritability while present in the group milieu. Anxiety: 9.5/10 Depression: "Ask me tomorrow"/10 Anger/irritability: 5-04/23 Patient presented as open and cooperative within the group milieu. Patient was dressed in personal, nondescript clothing that were appropriate within the milieu. Patient moved with the assistance of a walker. Patient's thought content was clear and concrete. She asked this Clinician for the handouts that he had on solution-focused thinking and problem-solving. She joked when providing the answer to the scaling question about her level of anxiety, stating, "My anxiety is [id number], and that is how tall I am too." Patient laughed at this comment. Patient's thought process was clear, coherent, and linear. This Clinician did not observe Patient responding to any internal stimuli during session. Patient presented as verbally engaged and nonobtrusive within the group milieu. She participated, along with other patients in the milieu, in identifying common problems that people encounter in addition to proposing certain solutions to address those problems in adaptive ways. Ramakrishna Beth MA, MONTRELL Addendum: 06/03/20 at 1114 by Ramakrishna MEEK Amended: Links added.
--- NOTE | 2020-06-03 16:26 | NUR ---
Nursing Progress Note: Legal hold: Voluntary Client on voluntary status for DTS Report received from CHICO Angel with use of SBAR Why are they here: Pt. presented to the ER after being referred by her psychiatrist, Dr. Jacinto. She reported depression and S/I during the past couple of months. Also, A/VILLAREAL that tell her to, "Sit in the middle of the street and see what happens." Pt. does admit to a history of S/A as well. Assessment What has happened this shift: Received patient up in the hallway at shift change. Pt. ate all meals in group room. Pt. is cooperative with 1:1 and medications. Continued thoughts of SI, due to CAH. Reports she doesn't sleep well at night r/t to them. Pt. states she has over "5" voices she hears, "sometimes they scare me." When asked what happens if you don't follow through on what they say, pt. states "they gather around and push me in the water." Pt. also reports that the tactile hallucinations "only happen at night." Pt. is observed pacing the villasenor, needed to ask where here room was a couple of times. Pt. c/o of feeling dizzy, assisted pt. back to her room and had her rest. Pt. also walks with head down and her hair was in her eyes. Hair was pulled back and pt. encouraged to walk with eyes forward. Pt. states has always walked like that because she looks for money. Pt. takes a nap after lunch. S/I, H/I: Reports S/I due to CAH. A/VH: Reports command AH, "they are the ones telling me to hurt myself." Sleep: 4.75 hrs. per Sleep Assessment. ADL's: Independent. Uses FWW to ambulate, fall precautions in place. Group attendance: Yes for a short time. Were meds taken: Yes, without hesitation. Any med S/E: Pt. denies, none observed. Mental Status Exam Appearance: Hair disheveled r/t laying in bed, appropriately dressed in personal clothing Eye contact: Fair Behavior: Cooperative, walks halls then isolates back to room, calm, makes jokes. Speech: Clear, normal rate/rhythm. Mood: Less anxious, guarded. Affect: Flat Thought process: Circumstantial Thought Content: AH Cognition: A&O X3 Insight: Poor Judgment: Poor Interventions PRN's used: None Therapeutic interventions: Maintained a safe and supportive environment, ensured contract for safety, provided clear and simple instructions, oriented to reality, monitored behaviors and need for intervention, encouraged participation on the unit, Q 15min safety checks. Restraints/seclusion/emergency medication: N/A Justification of Continued Inpatient Treatment: Patient requires interruption of current crises, medication adjustments, and a safe and supportive environment.
[2020-06-03] MEDS: acetaminophen 325mg tablet PO PRN (16:48)
[2020-06-03 17:50] VITALS: BP 149/80
[2020-06-03] MEDS: CLOZAPINE 25 MG oral disintegrating tablet PO SCH (18:12)
--- NOTE | 2020-06-03 18:29 | NUR ---
FALL: Around 1740 a patient came to Nurses station and reported pt. had fell by the showers. Pt. states she was ambulating went to turn was confused where her room was and fell to the floor on her right knee. Pts when she went to get up she bumped her head against the door. Pt. was using her FWW at the time of the fall. V/S were obtained and were WNL, pt was negative for orthostatic hypotension. Pt. was alert and oriented and joking around with staff. Pt. was assisted up by two staff members. Dr. Wheeler was notified and no x-ray was ordered. Pt. had turned her no slip hospital socks inside out. Pt. was educated on the correct way to wear her socks. Fall preventions are in place, will endorse to NOC shift and continue to monitor.
[2020-06-03 20:00] VITALS: BP 115/63
[2020-06-03] MEDS: quetiapine 100mg tablet PO SCH (20:00)
[2020-06-03] MEDS: mirtazapine 15mg tablet PO SCH (20:00)
[2020-06-03] MEDS ORDERED: CLOZAPINE 25 MG oral disintegrating tablet PO SCH (21:00)
[2020-06-03 21:04] VITALS: BP 115/63
--- NOTE | 2020-06-03 22:24 | NUR ---
yohan Progress Note: Legal hold: Voluntary Client on voluntary status for DTS Report received from CHICO Angel with use of SBAR Why are they here: Pt. presented to the ER after being referred by her psychiatrist, Dr. Jacinto. She reported depression and S/I during the past couple of months. Also, A/VILLAREAL that tell her to, "Sit in the middle of the street and see what happens." Pt. does admit to a history of S/A as well. Assessment What has happened this shift: Pt was in her room sitting in her chair with her head resting on the table at beginning of shift. Pt was cooperative for 1:1 and accepted hs meds without issue. Pt made several bizarre, delusional statements about a "tea getting his hair cut in her room." Pt was seen walking the halls several times during the evening and had her hair braided by a tech and was happy about it. S/I, H/I: denies A/VH: Reports command AH, "they say negative things." Sleep: see Sleep Assessment. ADL's: Independent. Uses FWW to ambulate, fall precautions in place. Group attendance: n/a Were meds taken: Yes, without hesitation. Any med S/E: Pt. denies, none observed. Mental Status Exam Appearance: Hair disheveled r/t laying in bed, appropriately dressed in personal clothing Eye contact: Fair Behavior: Cooperative, joking Speech: Clear, normal rate/rhythm. Mood: Less anxious, guarded. Affect: Flat Thought process: Circumstantial Thought Content: AH Cognition: A&O X3 Insight: Poor Judgment: Poor Interventions PRN's used: None Therapeutic interventions: Maintained a safe and supportive environment, ensured contract for safety, provided clear and simple instructions, oriented to reality, monitored behaviors and need for intervention, encouraged participation on the unit, Q 15min safety checks. Restraints/seclusion/emergency medication: N/A Justification of Continued Inpatient Treatment: Patient requires interruption of current crises, medication adjustments, and a safe and supportive environment.
[2020-06-04] MEDS: LORazepam 1 MG tablet PO PRN (02:14)
[2020-06-04] MEDS: acetaminophen 325mg tablet PO PRN ×3 (02:14→20:54)
[2020-06-04 07:44] LABS: BASOPHILS # (AUTO) 0.1 X10'3 (0-0.2); BASOPHILS % (AUTO) 1.3 % (0-1); EOSINOPHILS # (AUTO) 0.2 X10'3 (0-0.9); EOSINOPHILS % (AUTO) 2.4 % (0-6); HEMATOCRIT 42.2 % (35.0-45.0); LYMPHOCYTES # (AUTO) 2.4 X10'3 (1.1-4.8); LYMPHOCYTES % (AUTO) 31.5 % (21-51); MEAN CORPUSCULAR HGB CONC 33.1 g/dL (33.0-36.5); MEAN CORPUSCULAR VOLUME 96.6 FL (78-98); MEAN PLATELET VOLUME 8.6 FL (7.4-10.4); MONOCYTES # (AUTO) 0.9 X10'3 (0-0.9); MONOCYTES % (AUTO) 12.1 % (2-12); NEUTROPHILS % (AUTO) 52.7 % (42-75); PLATELET COUNT 267 X10'3 (140-440); RED BLOOD COUNT 4.37 X10'6 (4.20-5.60); RED CELL DISTRIBUTION WIDTH 14.2 % (11.5-14.5); WHITE BLOOD COUNT 7.5 X10'3 (4.5-11.0)
[2020-06-04 07:51] VITALS: BP 148/78
[2020-06-04] MEDS: pantoprazole 40mg Tablet.DR PO SCH (07:55)
[2020-06-04] MEDS: atorvastatin 20mg tablet PO SCH (07:55)
[2020-06-04] MEDS: docusate sod 100mg capsule PO SCH ×2 (07:56→20:50)
[2020-06-04] MEDS: gabapentin 300mg capsule PO SCH ×3 (07:56→20:50)
[2020-06-04] MEDS: benztropine 1mg tablet PO SCH ×2 (07:56→20:50)
[2020-06-04] MEDS: carVEDilol 3.125mg tablet PO SCH ×2 (07:56→20:50)
[2020-06-04] MEDS: buPROPion SR 100mg tab PO SCH ×2 (07:56→20:50)
[2020-06-04] MEDS: lisinopril 5mg tablet PO SCH (07:57)
[2020-06-04] MEDS: LIDOcaine 5% patch TP SCH (08:32)
--- NOTE | 2020-06-04 10:00 | NUR ---
Group Therapy: Process Group This Clinicians goals for this process group were as follows: (1) Ask scaling questions about Patients current anxiety, depression, and irritability symptoms as a check-in. (2) Share psychoeducation about the importance of being able to identify regular activities, support people, and thoughts (Anchors) that contribute to mental health well-being and stability. (3) Share psychoeducation about how the gradual removal of said activities, people and behaviors may lead to the erosion of mental well-being and stability. (4) Encourage Patients to identify support anchors that they need to maintain in their life that will promote their mental and emotional well-being. (5) Engage Patients in discussion of the topics shared within the group milieu. Patient identified experiencing the following levels of anxiety, depression, and anger/irritability while present in the group milieu. Anxiety: 07/24 Depression: 8.03/23 Anger/irritability: 08/23 Patient presented as open and cooperative within the group milieu. Patient was dressed in nondescript, personal clothing that were appropriate within the milieu. Her thought content was clear and concrete. Her thought process was often clear, coherent, and linear, but oftentimes she engaged in flight of ideas and tangential thinking during her comments on people, activities and thoughts that one could identify that would help keep them "anchored" to a place of positive mental health. Patient presented as verbally engaged and minimally intrusive within the group milieu. On one occasion, another Patient identified that doing, "Chores," was an activity that kept her grounded in her mental health, to which Patient responded, "Can I ask you a question, do you do them in the nude?" This Clinician gently informed Patient that this question was not appropriate, to which Client responded, "It was just a simple question." Patient identified that, "Rough-housing with her Ludmila Clayton," was an activity that she enjoyed that boosted her spirits and helped assist her in maintaining optimal mental health. Ramakrishna Beth MA, HANDYPERSON Addendum: 06/04/20 at 1113 by Ramakrishna Beth SS Amended: Links added.
--- NOTE | 2020-06-04 15:02 | NUR ---
Nursing Progress Note: Jeff Legal hold: Voluntary Client on voluntary status for DTS Report received from CHICO Angel with use of SBAR Why are they here: Pt. presented to the ER after being referred by her psychiatrist, Dr. Jacinto. She reported depression and S/I during the past couple of months. Also, A/VILLAREAL that tell her to, "Sit in the middle of the street and see what happens." Pt. does admit to a history of S/A as well. Assessment What has happened this shift: Client was in bed resting to begin the shift. No somatic complaints to begin the shift but shortly after breakfast, client developed an epigastric pain described as sharp and constant in nature. NAD noted during assessment. Client has no signs or symptoms of cardiac involvement at this time. Chest assessment revealed adventitious breath sounds consistent with her diagnosis of COPD. Pain did not radiate and there was no associated jaw pain. Respiratory assessment WNL for a client with her diagnosis. Capillary refill is brisk and mucous membranes were pink and moist. She was alert and oriented x 4 during assessment. This selling underwriter will check client q 15 minutes and report any deviations from baseline assessment. At 0843 hours, client was noted to be in bed with eyes closed. Respirations were even and unlabored and there was NAD noted. Client was medication compliant and was amicable to assessments this shift. Client describes a lack of appetite due to, horrible food here. She was given the choice to request a diet change and she stated that she, will think about it. At 0850 hours client was observed to be engaged with staff in conversation and no problems or issues noted. Client came to selling underwriter at 1004 hours and stated, I feel just fine so maybe I am not having a heart attack. Client then attended group and participated in activities. Client has been asking for more effective pain medication and states that Tylenol is simply not working. She has been pleasant and has not had any behavioral issues this shift. S/I, H/I: denies A/VH: Reports command AH, "they say negative things." Sleep: see Sleep Assessment. ADL's: Independent. Uses FWW to ambulate, fall precautions in place. Group attendance: Yes Were meds taken: Yes Any med S/E: Pt. denies, none observed. Mental Status Exam Appearance: disheveled Eye contact: Fair Behavior: Cooperative, joking Speech: Clear, normal rate/rhythm. Mood: Less anxious, guarded. Affect: Flat Thought process: Circumstantial Thought Content: AH Cognition: A&O X3 Insight: Poor Judgment: Poor Interventions PRN's used: None Therapeutic interventions: Maintained a safe and supportive environment, ensured contract for safety, provided clear and simple instructions, oriented to reality, monitored behaviors and need for intervention, encouraged participation on the unit, Q 15min safety checks. Restraints/seclusion/emergency medication: N/A Justification of Continued Inpatient Treatment: Patient requires interruption of current crises, medication adjustments, and a safe and supportive environment.
--- NOTE | 2020-06-04 15:57 | NUR ---
Behavioral event: At about 1545, client was discovered sitting and leaning against wall. She was alert and oriented x 4 and there were no obvious signs of injury noted. Client vital signs were stable and she was assisted to a standing position in front of her walker. She took control of the walker and ambulated to her room in the company of two staff members. She declined PRN medication and said, "it was really nothing".
[2020-06-04] MEDS: CLOZAPINE 25 MG oral disintegrating tablet PO SCH (17:14)
[2020-06-04 19:42] VITALS: BP 153/63
[2020-06-04 19:43] VITALS: BP 153/63
[2020-06-04] MEDS: quetiapine 100mg tablet PO SCH (20:50)
[2020-06-04] MEDS: mirtazapine 15mg tablet PO SCH (20:50)
--- NOTE | 2020-06-04 22:19 | NUR ---
Nursing Progress Note Legal hold: Voluntary Client on voluntary status DTS Report received from Jt GOLDEN with use of SBAR Why are they here: Pt. presented to the ER after being referred by her psychiatrist, Dr. Jacinto. She reported depression and S/I during the past couple of months. Also, A/VILLAREAL that tell her to, "Sit in the middle of the street and see what happens." Pt. does admit to a history of S/A as well. Assessment What has happened this shift: The patient has been up on the unit and has been fairly dramatic having attention and med seeking behaviors. The patient stated that she wants to be on klonopin for her depression. She also complained of having back pain but initially refused Tylenol. She later stated that she was having voices telling her to kill herself because she was having pain and wanted oxycontin for pain. The patient again was offered which she took. She has been observed doing things that are not indicative of someone who is having significant back pain ie independently sitting on the floor in the hallway and getting up without difficulty. She was then encouraged to talk to her provider tomorrow and she was also encouraged to try additional remedies such has placing a warm blanket on her back.She agreed to this and appears to be sleeping comfortably at this time. She denies medication side effects. She reports she hears voices telling her to sit on the train tracks. She then went on to describe her voices and giving them individual names. She stated at times the voices stop because "they have to stop and eat just like we do and they also have to do chores like dusting..." She reports her concentration and focus were good. She stated that her depression was worse because "people start to shit on you" and stated she was referring to another patient on the unit but did not elaborate. She is alert and oriented. Insight and judgement are impaired. She reports that she wants to kill herself but denies thoughts that she wants to harm others. Were meds taken: yes Any med S/E denied by the patient Mental Status Exam Appearance: appears stated age but her hair was up in pigtails Eye contact: WNL Behavior: See above note Interventions PRN's used: Tylenol Justification of Continued Inpatient Treatment: The patient continues to endorse auditory hallucinations telling her to sit on the train tracks and voices suicidal intent.
[2020-06-05] MEDS: acetaminophen 325mg tablet PO PRN ×2 (01:55→20:48)
[2020-06-05] MEDS: temazepam 15mg capsule PO PRN (01:55)
--- NOTE | 2020-06-05 02:02 | NUR ---
The patient stated that she had something she wanted to report in confidence that she fell on her knees when the staff were in her room helping with her roommate. She did not have any apparent injury. The staff assisting in the room at the time stated it appeared to be behavioral. clinical staff rn made aware.
[2020-06-05] MEDS: gabapentin 300mg capsule PO SCH ×3 (07:42→20:36)
[2020-06-05] MEDS: buPROPion SR 100mg tab PO SCH ×2 (07:42→20:34)
[2020-06-05] MEDS: benztropine 1mg tablet PO SCH ×2 (07:43→20:35)
[2020-06-05] MEDS: atorvastatin 20mg tablet PO SCH (07:43)
[2020-06-05] MEDS: pantoprazole 40mg Tablet.DR PO SCH (07:43)
[2020-06-05] MEDS: carVEDilol 3.125mg tablet PO SCH (07:44)
[2020-06-05] MEDS: docusate sod 100mg capsule PO SCH ×3 (07:44→20:35)
[2020-06-05] MEDS: lisinopril 5mg tablet PO SCH (07:45)
[2020-06-05 08:00] VITALS: BP 149/81
[2020-06-05] MEDS: LIDOcaine 5% patch TP SCH (08:41)
--- NOTE | 2020-06-05 10:00 | NUR ---
Corrected Group Therapy: Process Group This Clinicians goal for this process group were as follows: (1) Share psychoeducation about core beliefs and how these beliefs shapes how one views reality. (2) Compare and contrast how people with different core beliefs might interpret an identical situation differently. (3) Discuss how changing negative core beliefs to more balanced, helpful, and rational alternatives can lead to improved behaviors and mood. (4) Process Clients thoughts and reflections on this topic within the group milieu. Patient identified experiencing the following levels of anxiety, depression, and anger/irritability while present in the group milieu. Anxiety: 08/23 Depression: -06/23 Anger/irritability: 11/23 Patient presented as open and cooperative within the group milieu. Patient was dressed in personal, nondescript clothing that were appropriate within the milieu. Patient's thought content was clear, and concrete. Patient's thought process was marked by mild flight of ideas, tangential thinking and circumstantial thinking. Per this Clinician's impression, Patient was mildly intrusive as she frequently spoke over other patients and this Clinician. This Clinician was able to redirect Patient with minimal verbal prompting. Patient left the group milieu approximately 30 minutes into the process group and did not return. Patient did participate appropriately, on occasion, during the discussion of how differing core beliefs could significantly alter how one thinks, acts, and feels about situations that they are experiencing in their lives. Ramakrishna Beth MA, MONTRELL Addendum: 06/05/20 at 1137 by Ramakrishna Beth SS Amended: Links added.
--- NOTE | 2020-06-05 10:00 | NUR ---
Group Therapy: Process Group This Clinicians goal for this process group were as follows: (1) Share psychoeducation about core beliefs and how these beliefs shapes how one views reality. (2) Compare and contrast how people with different core beliefs might interpret an identical situation differently. (3) Discuss how changing negative core beliefs to more balanced, helpful, and rational alternatives can lead to improved behaviors and mood. (4) Process Clients thoughts and reflections on this topic within the group milieu. Patient presented as open within the group milieu. Patient was dressed in personal, nondescript clothing, along with a white surgical mask within the group milieu. Patient's thought content was clear, and concrete. Patient's thought process was marked by clear delusional thinking. Patient stated upon initial check-in with this Clinician that she had just got a job with the [employer] and that she was looking forward to seeing a baby that she had on May 23. Patient asked this Clinician on a couple of different occasions if she needed to leave group stating, "My mouth is smacking." This Clinician informed Patient that she was welcome to stay, but that she could leave at any time if she chose to do so. Patient remained within the group milieu until the end of the process group. Per this Clinician's impression, the vast majority of her comments during the discussion of core beliefs were off topic; however, Patient presented as nonobtrusive within the group setting. Ramakrishna Beth MA, MONTRELL Addendum: 06/05/20 at 1120 by Ramakrishna Beth SS Amended: Links added. Addendum: 06/05/20 at 1123 by Ramakrishna Beth SS CORRECTION: DISREGARD THIS NOTE IN ITS ENTIRETY. This information has been included in error. Please disregard the information included. Ramakrishna Beth MA, STEAM PRESSURE CHAMBER OPERATOR 11:22
[2020-06-05] MEDS: LORazepam 1 MG tablet PO PRN ×2 (10:18→12:04)
--- NOTE | 2020-06-05 10:58 | NUR ---
NURSING PROGRESS NOTE Legal hold: Voluntary Client on voluntary status for DTS Report received from Jeanne RN with use of SBAR Why are they here: Pt. presented to the ER after being referred by her psychiatrist, Dr. Jacinto. She reported depression and S/I during the past couple of months. Also, A/VILLAREAL that tell her to, "Sit in the middle of the street and see what happens." Pt. does admit to a history of S/A as well. Assessment What has happened this shift: Up early and having coffee and talking with peers. Did well in customer care team coach, at mid morning became irritable and was sitting on chair with legs swinging and fidgeting. Given Ativan 1 mg with good results. Reports having 5 voices in her head that bother her "sometimes and then sometimes not." Reports when she came in she was "fed up and tired" of "doing nothing" and having to "stay inside with the Covid thing." She became hopeless and wanted to sit in the middle of the street to "see what would happen." States she is feeling safer and better since she has been here and knows Dr. Jacinto is "working on my medications to get them right." Denies suicidal thoughts at this time. Played cards with peers. S/I, H/I: Denies at this time A/VH: Voices 5, not bothersome today Sleep: None ADL's: Independent Group attendance: No Were meds taken: Yes Any med S/E: Pt. denies, none observed. Mental Status Exam Appearance: Clean and neat Eye contact: Fair Behavior: Cooperative, responds to kindness Speech: Clear, normal rate/rhythm. Mood: depressed Affect: anxious at times Thought process: Linear Thought Content: The 5 voices Cognition: Alert Insight: Poor Judgment: Poor Interventions PRN's used: Ativan Therapeutic interventions: Maintained a safe and supportive environment, ensured contract for safety, provided clear and simple instructions, oriented to reality, monitored behaviors and need for intervention, encouraged participation on the unit, Q 15min safety checks. Restraints/seclusion/emergency medication: N/A Justification of Continued Inpatient Treatment: Patient requires interruption of current crises, medication adjustments, and a safe and supportive environment.
--- NOTE | 2020-06-05 12:12 | NUR ---
ATIVAN 1 MG REPEAT DOSE NEEDED PATIENT STILL ANXIOUS AND VOICES BECAME MORE BOTHERSOME.
--- NOTE | 2020-06-05 12:36 | NUR ---
Initial: Appetite improved since admission, regular diet and now eating average of 75-100% and meeting nutrition needs. Last BM 06/04. TG are elevated, receiving lipitor. Recommend: 1. continue regular diet 2. bowel care as needed 3. weekly wts Addendum: 06/05/20 at [address] Amended: Links added.
[2020-06-05] MEDS ORDERED: CLOZAPINE 25 MG oral disintegrating tablet PO SCH (18:00)
[2020-06-05] MEDS: CLOZAPINE 100 MG TAB.RAPDIS PO SCH (18:03)
[2020-06-05 20:00] VITALS: BP 99/64
[2020-06-05] MEDS: temazepam 15mg capsule PO SCH (20:34)
[2020-06-05] MEDS: mirtazapine 15mg tablet PO SCH (20:35)
[2020-06-05] MEDS: quetiapine 100mg tablet PO SCH (20:35)
[2020-06-05] MEDS: carvedilol 6.25mg tablet PO SCH (20:36)
--- NOTE | 2020-06-06 02:15 | NUR ---
NURSING PROGRESS NOTE Legal hold: Voluntary Client on voluntary status for DTS Report received from CHICO Angel with use of SBAR Why are they here: Pt. presented to the ER after being referred by her psychiatrist, Dr. Jacinto. She reported depression and S/I during the past couple of months. Also, A/VILLAREAL that tell her to, "Sit in the middle of the street and see what happens." Pt. does admit to a history of S/A as well. Assessment What has happened this shift: Patient ambulated hallway a few times follow shift change, she then returned to her room. Patient is well oriented and cooperative. When asked how she was feeling the patient states "I'm i a shitty mood, I don't know why? I'm alone, I hate myself, I've been no good all my life." When asked about S/I the patient states "a little bit." Patient describes a plan, "when I get out of here, and nobody is around, I'm going to sit in the middle of the street, we will see what happens." With a few kind words and light conversation the patients mood brightens. When being interviewed the patient swings her right leg back and forth and sideways. The patient denies hallucinations, she does however describe hearing three voices in her head, the primary voice is "Keyona Paul," she states that Keyona is telling the other two voices that "if I don't in three months something bad will happen to them. I hate Keyona Paul, she is a bitch." The patient is advised she is in a safe place. Patient experienced some sharp left flank pain that resolved with distraction and rest. S/I, H/I: None. A/VH: Voices, three total, Keyona Paul is one. Sleep: Sleeping, will tally at 0500. ADL's: Independent. Group attendance: Didn't attend on days. Were meds taken: Yes, medication compliant. Any med S/E: Pt. denies, none observed. Mental Status Exam Appearance: Clean and neat. Eye contact: Good. Behavior: Cooperative, friendly. Speech: Clear, normal rate/rhythm. Mood: Depressed. Affect: Flat, some brightening. Thought process: Linear. Thought Content: Hearing voices. Cognition: Alert. Insight: Poor. Judgment: Poor. Interventions PRN's used: None. Therapeutic interventions: Maintained a safe and supportive environment, ensured contract for safety, provided clear and simple instructions, oriented to reality, monitored behaviors and need for intervention, encouraged participation on the unit, Q 15min safety checks. Restraints/seclusion/emergency medication: N/A Justification of Continued Inpatient Treatment: Patient requires interruption of current crises, medication adjustments, and a safe and supportive environment.
--- NOTE | 2020-06-06 03:42 | NUR ---
Patient awoke, delusional, she believed her roommate kidnapped and hid her dog. Patient exhibited anxiety. Patient was reoriented to her surroundings and given a PO Ativan.
[2020-06-06] MEDS: LORazepam 1 MG tablet PO PRN ×2 (03:44→10:03)
[2020-06-06] MEDS: atorvastatin 20mg tablet PO SCH (07:37)
[2020-06-06] MEDS: buPROPion SR 100mg tab PO SCH ×2 (07:38→20:00)
[2020-06-06] MEDS: lisinopril 5mg tablet PO SCH (07:38)
[2020-06-06] MEDS: gabapentin 300mg capsule PO SCH ×3 (07:38→21:16)
[2020-06-06] MEDS: carvedilol 6.25mg tablet PO SCH ×2 (07:38→21:13)
[2020-06-06] MEDS: pantoprazole 40mg Tablet.DR PO SCH (07:38)
[2020-06-06] MEDS: benztropine 1mg tablet PO SCH ×2 (07:39→21:16)
[2020-06-06] MEDS: acetaminophen 325mg tablet PO PRN ×2 (07:51→17:39)
[2020-06-06] MEDS: docusate sod 100mg capsule PO SCH ×2 (07:54→21:16)
[2020-06-06 08:00] VITALS: BP 113/79
[2020-06-06] MEDS: LIDOcaine 5% patch TP SCH (08:18)
--- NOTE | 2020-06-06 14:10 | NUR ---
PAIN MEDICATION ORDER DR MILI Batres here to see patient. Verbal order taken for Ibuprofen 400mg po q6h prn pain, but when this nurse went to put order in system saw patient is allergic to Ibuprofen. LIZET Vasquez was consulted and she stated she would deal with the patient's pain med orders today.
--- NOTE | 2020-06-06 14:30 | NUR ---
PT CONSULT RANDI Crystal evaluated patient today and suggested she have an Orthopaedic expert look at the hip joint to determine if it is stable. He suggested AP and Lateral x-ray to determine if surgical repair is currently stable. He stated the patient presented with "classic groin pain" that may suggest a problem with joint replacement.
--- NOTE | 2020-06-06 14:43 | NUR ---
NURSING PROGRESS NOTE Legal hold: Voluntary Client on voluntary status for DTS Report received from CHICO Roberts with use of SBAR Why are they here: Pt. presented to the ER after being referred by her psychiatrist, Dr. Jacinto. She reported depression and S/I during the past couple of months. Also, A/VILLAREAL that tell her to, "Sit in the middle of the street and see what happens." Pt. does admit to a history of S/A as well. Assessment What has happened this shift: C/O not sleeping last night with "wild, wild voices" circling around her as she was in the middle of the ho-chunk of "bad demons" on a cross like Zylie the Bear. "Then they all went home and then came back and they killed me." Responds well to reassurance and reality reorientation. Depressed and anxious at times. States she still sometimes wants to just "sit in the road." Had PT eval right hip and gait today (SEE PREVIOUS NOTE) Christina was notified. Patient reports she does not eat much for lunch or dinner normally so she does not eat much here. Naps at times and is med compliant. S/I, H/I: Denies at this time A/VH: Voices 5, not bothersome today Sleep: None ADL's: Independent Group attendance: No Were meds taken: Yes Any med S/E: Pt. denies, none observed. Mental Status Exam Appearance: Clean and neat Eye contact: Fair Behavior: Cooperative, responds to kindness Speech: Clear, normal rate/rhythm. Mood: depressed Affect: anxious at times Thought process: Linear Thought Content: The 5 voices Cognition: Alert Insight: Poor Judgment: Poor Interventions PRN's used: Ativan Therapeutic interventions: Maintained a safe and supportive environment, ensured contract for safety, provided clear and simple instructions, oriented to reality, monitored behaviors and need for intervention, encouraged participation on the unit, Q 15min safety checks. Restraints/seclusion/emergency medication: N/A Justification of Continued Inpatient Treatment: Patient requires interruption of current crises, medication adjustments, and a safe and supportive environment.
[2020-06-06] MEDS ORDERED: olanzapine 10mg tablet PO PRN (16:15)
[2020-06-06] MEDS ORDERED: CLOZAPINE 25 MG oral disintegrating tablet PO SCH (18:00)
[2020-06-06] MEDS: CLOZAPINE 100 MG TAB.RAPDIS PO SCH (18:03)
[2020-06-06 19:00] VITALS: BP 127/67
[2020-06-06] MEDS: mirtazapine 15mg tablet PO SCH (21:13)
[2020-06-06] MEDS: temazepam 15mg capsule PO SCH (21:13)
[2020-06-06] MEDS: quetiapine 100mg tablet PO SCH (21:13)
[2020-06-06] MEDS: lisinopril 2.5mg tablet PO SCH (21:15)
--- NOTE | 2020-06-07 02:14 | NUR ---
NURSING PROGRESS NOTE Legal hold: Voluntary Client on voluntary status for DTS Report received from CHICO Suazo with use of SBAR Why are they here: Pt. presented to the ER after being referred by her psychiatrist, Dr. Jacinto. She reported depression and S/I during the past couple of months. Also, A/VILLAREAL that tell her to, "Sit in the middle of the street and see what happens." Pt. does admit to a history of S/A as well. Assessment What has happened this shift: Patient ambulates halls with a walker that she uses secondary to a right hip surgery. Patient is oriented to person, place, somewhat to situation, she knows who the vice president [employer] yet she is delusional. Patient explains Neeraj and Howienatacha are taking turns being President. The patient still endorses suicidal ideation with a plan. "I've got to get out of here first. I'm going to sit in the middle of a road and see what happens." Patient tells of a secondary plan, "I'm going to get all the money I can gather, then I'm going to pay somebody to kill me. But, they can't tell me when, I want it to be a surprise!" At time this patient laughs and smiles, the then tells this commercial insurance underwriter of depression and loneliness. At times patient is seen socializing with others and sharing potato chips in the community room. Patient admits to hearing voices, usually three to five at times, they are derogatory to her. The patient is cooperative with this commercial insurance underwriter and medication compliant. Tylenol was given for back pain. 02 at 2 LPM by N/C at sleep. S/I, H/I: Denies at this time. A/VH: Multiple voices, including Keyona Paul. Sleep: Sleeping well. Will tally at 0500. ADL's: Independent. Group attendance: No. Were med's taken: Yes. Any med S/E: Pt. denies, none observed. Mental Status Exam Appearance: Clean and neat. Eye contact: Fair. Behavior: Cooperative, responds to kindness, upbeat at times. Speech: Clear, normal rate/rhythm. Mood: Depressed with brightening at times. Affect: Flat. Thought process: Linear. Thought Content: Voices, suicide planning. Cognition: Alert. Insight: Poor. Judgment: Poor. Interventions PRN's used: APAP. Therapeutic interventions: Maintained a safe and supportive environment, ensured contract for safety, provided clear and simple instructions, oriented to reality, monitored behaviors and need for intervention, encouraged participation on the unit, Q 15min safety checks. Restraints/seclusion/emergency medication: N/A Justification of Continued Inpatient Treatment: Patient requires interruption of current crises, medication adjustments, and a safe and supportive environment.
[2020-06-07] MEDS: acetaminophen 325mg tablet PO PRN ×2 (04:32→10:27)
[2020-06-07] MEDS: LIDOcaine 5% patch TP SCH (07:32)
[2020-06-07] MEDS: buPROPion SR 100mg tab PO SCH ×2 (07:33→20:29)
[2020-06-07] MEDS: benztropine 1mg tablet PO SCH ×2 (07:33→20:31)
[2020-06-07] MEDS: atorvastatin 20mg tablet PO SCH (07:33)
[2020-06-07] MEDS: pantoprazole 40mg Tablet.DR PO SCH (07:33)
[2020-06-07] MEDS: gabapentin 300mg capsule PO SCH ×3 (07:33→20:30)
[2020-06-07] MEDS: carvedilol 6.25mg tablet PO SCH ×2 (07:34→20:00)
[2020-06-07] MEDS: docusate sod 100mg capsule PO SCH ×2 (07:34→20:28)
[2020-06-07 08:38] VITALS: BP 125/66
[2020-06-07] MEDS: LORazepam 1 MG tablet PO PRN (10:26)
--- NOTE | 2020-06-07 14:17 | NUR ---
NURSING PROGRESS NOTE Legal hold: Voluntary Client on voluntary status for DTS Report received from CHICO Roberts with use of SBAR Why are they here: Pt. presented to the ER after being referred by her psychiatrist, Dr. Jacinto. She reported depression and S/I during the past couple of months. Also, A/VILLAREAL that tell her to, "Sit in the middle of the street and see what happens." Pt. does admit to a history of S/A as well. Assessment What has happened this shift: Patient states she is feeling much the same and has 5 voices in her head, "some are bad and some are good." Up on unit and cooperative today, mood seems a bit lifted and is much less anxious and restless than yesterday. Watching movies and participating in activities with her peers. Still having thoughts of sitting in road to "see what happens." Hopeless, states "I'm never going to feel different than this." S/I, H/I: Same thought of sitting in roadway A/VH: Voices 5, mostly quiet today Sleep: None ADL's: Independent Group attendance: yes Were meds taken: Yes Any med S/E: Pt. denies, none observed. Mental Status Exam Appearance: slightly disheveled Eye contact: Fair Behavior: Cooperative, responds to kindness Speech: Clear, normal rate/rhythm. Mood: depressed Affect: smiling some today Thought process: circumstantial Thought Content: hair , putting in pig tails Cognition: Alert Insight: Poor Judgment: Poor Interventions PRN's used: Tylenol Therapeutic interventions: Maintained a safe and supportive environment, ensured contract for safety, provided clear and simple instructions, oriented to reality, monitored behaviors and need for intervention, encouraged participation on the unit, Q 15min safety checks. Restraints/seclusion/emergency medication: N/A Justification of Continued Inpatient Treatment: Patient requires interruption of current crises, medication adjustments, and a safe and supportive environment.
[2020-06-07] MEDS ORDERED: CLOZAPINE 100 MG TAB.RAPDIS PO SCH (18:00)
[2020-06-07 19:00] VITALS: BP 92/54
[2020-06-07] MEDS: lisinopril 2.5mg tablet PO SCH (20:27)
[2020-06-07] MEDS: quetiapine 100mg tablet PO SCH (20:29)
[2020-06-07] MEDS: mirtazapine 15mg tablet PO SCH (20:29)
[2020-06-07] MEDS: temazepam 15mg capsule PO SCH (20:30)
--- NOTE | 2020-06-08 01:37 | NUR ---
NURSING PROGRESS NOTE Legal hold: Voluntary Client on voluntary status for DTS Report received from CHICO Suazo with use of SBAR Why are they here: Pt. presented to the ER after being referred by her psychiatrist, Dr. Jacinto. She reported depression and S/I during the past couple of months. Also, A/VILLAREAL that tell her to, "Sit in the middle of the street and see what happens." Pt. does admit to a history of S/A as well. Assessment What has happened this shift: Patient ambulates around the unit, watches television, she visits with others. Patient refuses to use her walker this shift. "I don't like it, I don't need it." Patient exhibits some linear that at times, she joks. Patient then tells this writer producer that nobody knows how dark it is inside me, I hide it." Patient still endorses suicidal ideation, she still hears multiple voices. Patient complains of chronic neck and back pain, some anxiety too. PO Ativan was given as a PRN. S/I, H/I: S/I, multiple plans. A/VH: Multiple voices telling her "You're no good." Sleep: Will tally at 0500 hour. ADL's: Independent. Group attendance: Yes, on day shift. Were meds taken: Yes, medication compliant. Any med S/E: Pt. denies, none observed. Mental Status Exam Appearance: Disheveled. Eye contact: Fair. Behavior: Cooperative, responds to kindness. Speech: Clear, normal rate/rhythm. Mood: Depressed, suicidal. Affect: Flat with occasional brightening. Thought process: Circumstantial. Thought Content: Feeling a darkness inside herself. Cognition: Alert. Insight: Poor. Judgment: Poor. Interventions PRN's used:Ativan. Therapeutic interventions: Maintained a safe and supportive environment, ensured contract for safety, provided clear and simple instructions, oriented to reality, monitored behaviors and need for intervention, encouraged participation on the unit, Q 15min safety checks. Restraints/seclusion/emergency medication: N/A Justification of Continued Inpatient Treatment: Patient requires interruption of current crises, medication adjustments, and a safe and supportive environment.
[2020-06-08] MEDS: LORazepam 1 MG tablet PO PRN ×3 (05:13→12:28)
[2020-06-08 08:05] VITALS: BP 127/64
[2020-06-08] MEDS: LIDOcaine 5% patch TP SCH (08:53)
[2020-06-08] MEDS: benztropine 1mg tablet PO SCH ×2 (08:55→20:29)
[2020-06-08] MEDS: gabapentin 300mg capsule PO SCH ×3 (08:56→20:31)
[2020-06-08] MEDS: atorvastatin 20mg tablet PO SCH (08:56)
[2020-06-08] MEDS: docusate sod 100mg capsule PO SCH ×2 (08:56→20:31)
[2020-06-08] MEDS: pantoprazole 40mg Tablet.DR PO SCH (08:56)
[2020-06-08] MEDS: carvedilol 6.25mg tablet PO SCH ×2 (08:57→20:34)
[2020-06-08] MEDS: buPROPion SR 100mg tab PO SCH ×2 (08:57→20:32)
[2020-06-08] MEDS: acetaminophen 325mg tablet PO PRN (13:35)
--- NOTE | 2020-06-08 13:57 | NUR ---
NURSING PROGRESS NOTE Legal hold: Voluntary Client on voluntary status for DTS Report received from CHICO Suazo with use of SBAR Why are they here: Pt. presented to the ER after being referred by her psychiatrist, Dr. Jacinto. She reported depression and S/I during the past couple of months. Also, A/VILLAREAL that tell her to, "Sit in the middle of the street and see what happens." Pt. does admit to a history of S/A as well. Assessment: What has happened this shift: On first meeting pt at the beginning of the shift, Pt stated "Just get rid of me, no one will notice." Pt did not repeat this statement the rest of the day. Pt ambulated around unit using a different walker given to her. Pt states "This one works fine." Pt has been ambulating in the unit, but leaves her walker in the Community Room most of the time. Requested Ativan at @ 1230. Went to pts bedside to give Ativan c/o seeing worms and snails while she was sitting on her bed, then informed that "thats why I need to shower, they are under my skin." Patient visits with other pts and staff. Pt c/o Hip pain at approximately 1330 and received Tylenol in addition to Lidocaine patch applied early this am. S/I, H/I: S/I, multiple plans. A/VH: Multiple voices telling her "You're no good." Sleep: Napped at 1330 ADL's: Independent. Group attendance: Yes, on day shift. Were meds taken: Yes, medication compliant. Any med S/E: Pt. denies, none observed. Mental Status Exam Appearance: Disheveled. Eye contact: Fair. Behavior: Cooperative, responds to kindness. Speech: Clear, normal rate/rhythm. Mood: Depressed, suicidal. Affect: Flat with occasional brightening. Thought process: Circumstantial. Thought Content: Feeling a darkness inside herself. Cognition: Alert. Insight: Poor. Judgment: Poor. Interventions PRN's used:Ativan & Tylenol Therapeutic interventions: Maintained a safe and supportive environment, ensured contract for safety, provided clear and simple instructions, oriented to reality, monitored behaviors and need for intervention, encouraged participation on the unit, Q 15min safety checks. Restraints/seclusion/emergency medication: N/A Justification of Continued Inpatient Treatment: Patient requires interruption of current crises, medication adjustments, and a safe and supportive environment.
[2020-06-08] MEDS: CLOZAPINE 25 MG oral disintegrating tablet PO SCH (17:22)
[2020-06-08] MEDS: CLOZAPINE 100 MG TAB.RAPDIS PO SCH (17:25)
[2020-06-08 19:39] VITALS: BP 116/59
[2020-06-08] MEDS: temazepam 15mg capsule PO SCH (20:30)
[2020-06-08] MEDS: mirtazapine 15mg tablet PO SCH (20:31)
[2020-06-08] MEDS: quetiapine 100mg tablet PO SCH (20:32)
--- NOTE | 2020-06-09 01:23 | NUR ---
NURSING PROGRESS NOTE Legal hold: Voluntary Client on voluntary status for DTS Report received from [facility] with use of SBAR Why are they here: Pt. presented to the ER after being referred by her psychiatrist, Dr. Jacinto. She reported depression and S/I during the past couple of months. Also, A/VILLAREAL that tell her to, "Sit in the middle of the street and see what happens." Pt. does admit to a history of S/A as well. Assessment What has happened this shift: Patient is seen ambulating hallways without walker at times. She is social, tonight she is primarily in her room. Patient ate a full dinner and is medication compliant. Patient states she is still hearing voices, they are telling her bad things about herself like "you're no good." This patient denies visual hallucinations. Suicidal ideation is still present, patient doesn't speak of a plan tonight. The patient is reminded to please use her walker, she agrees to this. Patient is reminded that she is in a safe place. S/I, H/I: Denies at this time. A/VH: Multiple voices. Sleep: Sleeping well. Will tally at 0500. ADL's: Independent. Group attendance: No. Were med's taken: Yes, medication compliant. Any med S/E: Pt. denies, none observed. Mental Status Exam Appearance: Clean and neat. Eye contact: Fair. Behavior: Cooperative, responds to kindness, upbeat at times. Speech: Clear, normal rate/rhythm. Mood: Depressed with brightening at times. Affect: Flat. Thought process: Linear. Thought Content: Voices, suicide planning. Cognition: Alert. Insight: Poor. Judgment: Poor. Interventions PRN's used: APAP. Therapeutic interventions: Maintained a safe and supportive environment, ensured contract for safety, provided clear and simple instructions, oriented to reality, monitored behaviors and need for intervention, encouraged participation on the unit, Q 15min safety checks. Restraints/seclusion/emergency medication: N/A Justification of Continued Inpatient Treatment: Patient requires interruption of current crises, medication adjustments, and a safe and supportive environment.
[2020-06-09] MEDS: benztropine 1mg tablet PO SCH ×2 (07:11→20:51)
[2020-06-09] MEDS: buPROPion SR 100mg tab PO SCH ×2 (07:12→20:50)
[2020-06-09] MEDS: docusate sod 100mg capsule PO SCH ×2 (07:12→20:50)
[2020-06-09] MEDS: gabapentin 300mg capsule PO SCH ×3 (07:12→20:50)
[2020-06-09] MEDS: atorvastatin 20mg tablet PO SCH (07:12)
[2020-06-09] MEDS: pantoprazole 40mg Tablet.DR PO SCH (07:12)
[2020-06-09] MEDS: LIDOcaine 5% patch TP SCH (07:13)
[2020-06-09] MEDS: LORazepam 1 MG tablet PO PRN ×2 (07:13→13:52)
[2020-06-09] MEDS: acetaminophen 325mg tablet PO PRN ×2 (07:14→21:28)
[2020-06-09] MEDS: carvedilol 6.25mg tablet PO SCH ×2 (07:24→20:50)
[2020-06-09 08:00] VITALS: BP 101/72
--- NOTE | 2020-06-09 10:00 | NUR ---
Group Therapy: Process Group This Clinicians goal for this process group were as follows: (1) Introduce and provide psychoeducation on Downey ABC method. (2) Practice working through Downey ABC method using examples provided by this Clinician. (3) Encourage Patients to process some of their own reoccurring situations utilizing Downey ABC methodology. (4) Process Clients thoughts and reflections on this topic within the group milieu. Patient identified experiencing the following levels of anxiety, depression, and anger/irritability while present in the group milieu. Anxiety: 08/23 Depression: 08/23 Anger/irritability: 05/23 Patient was initially present at the start of the process group. Patient was dressed in nondescript personal clothing that were appropriate within the milieu. She also wore a white surgical mask over her face. Patient reported experiencing high symptoms of anxiety, depression--both 08/23--and anger/irritability, 05/23. Patient's thought content was clear and concrete. Patient's thought process was clear, coherent, and linear. This Clinician did not observe Patient responding to any internal stimuli during session. Patient left the process group approximately 5 minutes into the process group and did not return. Patient did not verbally participate in the discussion of Downey' ABC methodology. Ramakrishna Beth MA, MONTRELL Addendum: 06/09/20 at 1127 by Ramakrishna Beth SS Amended: Links added.
--- NOTE | 2020-06-09 15:23 | NUR ---
NURSING PROGRESS NOTE Legal hold: Voluntary Client on voluntary status for DTS Report received from [facility] with use of SBAR Why are they here: Pt. presented to the ER after being referred by her psychiatrist, Dr. Jacinto. She reported depression and S/I during the past couple of months. Also, A/VILLAREAL that tell her to, "Sit in the middle of the street and see what happens." Pt. does admit to a history of S/A as well. Assessment What has happened this shift: Patient has been ambulating in halls quite often today. Pt does not use walker when she ambulates. Pt reports its too noisy. Education given to patient regarding importance of safety. Pt was hallucinating at 0715 today, and Ativan was given. Hallucinations were visual "See People coming through my window and they have a flashing light in front of me. At 0745 pt stated "There are prostitute in boxes coming to see me. They are getting undressed and I don't want to see that. At 0845, pt reported feeling much better and there were no hallucinations after the first two incidents. Pt reported she might need a higher dose of pain med. Pt requested Tylenol at 0715, which was given for c/o pain of "6" that went down to a "2" approximately one hour later. Valentina in Physical Therapy came to see patient. Reported pt not using walker due to "squealing wheels." Valentina reported she would look at walker. Valentina and myself reviewed pts sacral/coccyx xray done 1 week ago, and they recommended getting a right hip x-ray. Entered order for right hip xray today. Will wait for their arrival. PT wants to follow up tomorrow, and if there is a problem on the right hip xray (displacement), they will then get an Ortho Consult. S/I, H/I: Denies at this time. A/VH: Multiple voices. Sleep: Sleeping well. Will tally at 0500. ADL's: Independent. Group attendance: No. Were med's taken: Yes, medication compliant. Any med S/E: Pt. denies, none observed. Mental Status Exam Appearance: Clean and neat. Eye contact: Fair. Behavior: Cooperative, responds to kindness, upbeat at times. Speech: Clear, normal rate/rhythm. Mood: Depressed with brightening at times. Affect: Flat. Thought process: Linear. Thought Content: Voices, suicide planning. Cognition: Alert. Insight: Poor. Judgment: Poor. Interventions PRN's used: APAP. Therapeutic interventions: Maintained a safe and supportive environment, ensured contract for safety, provided clear and simple instructions, oriented to reality, monitored behaviors and need for intervention, encouraged participation on the unit, Q 15min safety checks. Restraints/seclusion/emergency medication: N/A Justification of Continued Inpatient Treatment: Patient requires interruption of current crises, medication adjustments, and a safe and supportive environment
--- NOTE | 2020-06-09 17:21 | NUR ---
DCP Presenting Issues: Pt's close to d/c, attending physician requesting SS assistance w/dcp activities. Interventions: SS met w/pt, engaged her in dcp activities. Pt identified IHSS as a service that had helped her alot in the past and she would like to resume it when she d/c. SS provided support for pt to complete new IHSS application. Pt will need appointments with [facility] PMD [facility] Psychiatric care providers and transportation home at time of d/c. IHSS application faxed to [facility]. Plan: SS will finalize dcp w/pt prior to d/c Maryjane Moctezuma LCSW Addendum: 06/09/20 at 1725 by Maryjane Moctezuma Amended: Links added.
[2020-06-09] MEDS: CLOZAPINE 25 MG oral disintegrating tablet PO SCH (17:25)
[2020-06-09] MEDS: CLOZAPINE 100 MG TAB.RAPDIS PO SCH (17:25)
[2020-06-09 20:13] VITALS: BP 144/97
[2020-06-09] MEDS: mirtazapine 15mg tablet PO SCH (20:50)
[2020-06-09] MEDS: quetiapine 100mg tablet PO SCH (20:51)
[2020-06-09] MEDS: temazepam 15mg capsule PO SCH (20:51)
[2020-06-09] MEDS: albuterol 2.5 MG/3 ML nebule NEB PRN (21:04)
--- NOTE | 2020-06-10 01:33 | NUR ---
NURSING PROGRESS NOTE Legal hold: Voluntary Client on voluntary status for DTS Report received from [facility] with use of SBAR Why are they here: Pt. presented to the ER after being referred by her psychiatrist, Dr. Jacinto. She reported depression and S/I during the past couple of months. Also, A/VILLAREAL that tell her to, "Sit in the middle of the street and see what happens." Pt. does admit to a history of S/A as well. Assessment What has happened this shift: Pt up in halls at start of shift. Pt ambulates without walker, gait steady. Pt says she does not use walker because it is to noisy. Hip Xray showed no acute process, Hx of hip surgery. Pt did not make any delusional statements this shift. Denies hearing any voices at this time. Disorganized thought process. Pt said "I never get the gutter in the dirt I always get the dirt in the gutter if you know what I mean" By context it was obvious pt was trying to say she does not get what she wants. Pt was pleasant and cooperative with care took all medications. S/I, H/I: Denies A/VH: Denies currently Sleep: Sleeping at this time ADL's: Independent. Group attendance: NA Were med's taken: Yes, medication compliant. Any med S/E: Pt. denies, none observed. Mental Status Exam Appearance: Clean and neat. Eye contact: Fair. Behavior: Cooperative, Speech: Clear, normal rate/rhythm. Mood: Depressed Affect: Flat. Thought process: Linear. Thought Content: Voices, suicide planning. Cognition: Alert. Insight: Poor. Judgment: Poor. Interventions PRN's used: Tylenol Ativan Therapeutic interventions: Maintained a safe and supportive environment, ensured contract for safety, provided clear and simple instructions, oriented to reality, monitored behaviors and need for intervention, encouraged participation on the unit, Q 15min safety checks. Restraints/seclusion/emergency medication: N/A Justification of Continued Inpatient Treatment: Patient requires interruption of current crises, medication adjustments, and a safe and supportive environment
[2020-06-10] MEDS: carvedilol 6.25mg tablet PO SCH ×2 (07:42→21:02)
[2020-06-10] MEDS: benztropine 1mg tablet PO SCH ×2 (07:42→21:02)
[2020-06-10] MEDS: pantoprazole 40mg Tablet.DR PO SCH (07:43)
[2020-06-10] MEDS: atorvastatin 20mg tablet PO SCH (07:44)
[2020-06-10] MEDS: gabapentin 300mg capsule PO SCH ×3 (07:44→21:03)
[2020-06-10] MEDS: buPROPion SR 100mg tab PO SCH ×2 (07:44→21:03)
[2020-06-10] MEDS: docusate sod 100mg capsule PO SCH ×2 (07:45→21:03)
[2020-06-10] MEDS: LIDOcaine 5% patch TP SCH (07:45)
[2020-06-10 07:51] VITALS: BP 132/78
[2020-06-10] MEDS: LORazepam 1 MG tablet PO PRN (08:03)
--- NOTE | 2020-06-10 14:20 | NUR ---
NURSING PROGRESS NOTE Legal hold: Voluntary Client on voluntary status for DTS Report received from [facility] with use of SBAR Why are they here: Pt. presented to the ER after being referred by her psychiatrist, Dr. Jacinto. She reported depression and S/I during the past couple of months. Also, A/VILLAREAL that tell her to, "Sit in the middle of the street and see what happens." Pt. does admit to a history of S/A as well. Assessment What has happened this shift: Patient was fearful and anxious this morning about the "doctor sending me to a new place." given Ativan for anxiety with good effect. Talked with MD and BOB. Plan is to go home with support, IHSS. Hears voices but not bothersome today. Socialized with peers throughout afternoon. S/I, H/I: passive SI A/VH: Voices Sleep: None ADL's: Independent Group attendance: no Were meds taken: Yes Any med S/E: Pt. denies, none observed. Mental Status Exam Appearance: slightly disheveled Eye contact: Fair Behavior: Cooperative, responds to kindness Speech: Clear, normal rate/rhythm. Mood: depressed but brighter Affect: some anxiety Thought process: circumstantial Thought Content: discharge Cognition: Alert Insight: fair Judgment: fair Interventions PRN's used: Ativan x1 Therapeutic interventions: Maintained a safe and supportive environment, ensured contract for safety, provided clear and simple instructions, oriented to reality, monitored behaviors and need for intervention, encouraged participation on the unit, Q 15min safety checks. Restraints/seclusion/emergency medication: N/A Justification of Continued Inpatient Treatment: Patient requires interruption of current crises, medication adjustments, and a safe and supportive environment.
--- NOTE | 2020-06-10 15:57 | NUR ---
DCP Presenting Issues: Pt is expected to d/c at the end of the week and needs to finalize dcp. Interventions: SS had t/c with [facility] and scheduled pt's post-hospital follow-up w/Dr. Jacinto. SS mt with pt to finalize dcp, pt agreed to follow-up w/PMD & Dr. Jacinto, care steam fitter supervisor will contact [facility]'s office at [phone] to arrange transportation home for pt. Plan: SS will continue to monitor until d/c. Maryjane Moctezuma LCSW Addendum: 06/10/20 at 1600 by Maryjane Moctezuma Amended: Links added.
[2020-06-10] MEDS: CLOZAPINE 100 MG TAB.RAPDIS PO SCH (17:28)
[2020-06-10] MEDS: CLOZAPINE 25 MG oral disintegrating tablet PO SCH (17:28)
[2020-06-10 19:00] VITALS: BP 116/60
[2020-06-10] MEDS: temazepam 15mg capsule PO SCH (21:01)
[2020-06-10] MEDS: quetiapine 100mg tablet PO SCH (21:02)
[2020-06-10] MEDS: mirtazapine 15mg tablet PO SCH (21:02)
--- NOTE | 2020-06-11 02:29 | NUR ---
RN PROGRESS NOTE: LEGAL HOLD: Voluntary for DTS, depression. THIS SHIFT: Client sat on the edge of her bed and rocked back and forth during assessment. She reports anxiety regarding discharge stating, "I don't know what I would do when I leave here." Client reported hearing voices that tell her "they are going kill me". Client does not leave her home unless accompanied by her friend. She then states, "The only thing keeping me alive is my dog Ludmila." Client has had the dog since it was a puppy. Client reported feeling confused at times and stated, "I can't find my room when I leave it. Everything looks alike." Client reported "yelling at two patients" who she felt were "inappropriate" at lunch. She denies side effects to medications and feels the meds "are working". Client has scoliosis and has had a right hip replacement. Reports chronic pain. Compliant with meds and cooperative with assessment. Mood and affect are anxious. Her hair is messy and her overall appearance is disheveled. DISCHARGE: Client does feel she would be safe if discharged.
[2020-06-11 07:13] LABS: BASOPHILS # (AUTO) 0.1 X10'3 (0-0.2); BASOPHILS % (AUTO) 1.7 % (0-1); EOSINOPHILS # (AUTO) 0.2 X10'3 (0-0.9); EOSINOPHILS % (AUTO) 2.5 % (0-6); HEMATOCRIT 42.1 % (35.0-45.0); HEMOGLOBIN 13.9 g/dl (12.0-16.0); LYMPHOCYTES # (AUTO) 2.6 X10'3 (1.1-4.8); MEAN CORPUSCULAR HEMOGLOBIN 32.1 PG (27.0-31.0); MEAN CORPUSCULAR VOLUME 97.2 FL (78-98); MEAN PLATELET VOLUME 8.6 FL (7.4-10.4); MONOCYTES # (AUTO) 0.8 X10'3 (0-0.9); MONOCYTES % (AUTO) 9.7 % (2-12); NEUTROPHILS # (AUTO) 4.6 X10'3 (1.8-7.7); NEUTROPHILS % (AUTO) 55.1 % (42-75); PLATELET COUNT 253 X10'3 (140-440); RED BLOOD COUNT 4.33 X10'6 (4.20-5.60); RED CELL DISTRIBUTION WIDTH 14.3 % (11.5-14.5); WHITE BLOOD COUNT 8.4 X10'3 (4.5-11.0)
[2020-06-11 07:28] LABS: ALANINE AMINOTRANSFERASE 25 U/L (12-78); ALBUMIN 3.5 G/DL (3.4-5.0); ALBUMIN/GLOBULIN RATIO 0.9 (1.1-1.5); ALKALINE PHOSPHATASE 155 IU/L (46-116); ANION GAP 6 (8-16); ASPARTATE AMINO TRANSFERASE 17 U/L (10-37); BILIRUBIN,TOTAL 0.3 MG/DL (0.1-1.0); BLOOD UREA NITROGEN 19 MG/DL (7-18); BUN/CREATININE RATIO 16.4 (6.6-38.0); CALCIUM 9.7 MG/DL (8.5-10.1); CHLORIDE 105 MMOL/L (99-107); CREATININE 1.16 MG/DL (0.40-0.90); GLUCOSE 111 MG/DL (70-104); POTASSIUM 4.5 MMOL/L (3.5-5.1); SODIUM 140 MMOL/L (135-145); TOTAL CARBON DIOXIDE 29.3 MMOL/L (24-32); TOTAL PROTEIN 7.2 G/DL (6.4-8.2); eGFR 47 ML/MIN
[2020-06-11 07:49] VITALS: BP 142/88
[2020-06-11] MEDS: gabapentin 300mg capsule PO SCH ×3 (07:58→20:03)
[2020-06-11] MEDS: atorvastatin 20mg tablet PO SCH (07:58)
[2020-06-11] MEDS: pantoprazole 40mg Tablet.DR PO SCH (07:58)
[2020-06-11] MEDS: LIDOcaine 5% patch TP SCH (07:58)
[2020-06-11] MEDS: carvedilol 6.25mg tablet PO SCH ×2 (07:59→20:02)
[2020-06-11] MEDS: buPROPion SR 100mg tab PO SCH ×2 (07:59→20:03)
[2020-06-11] MEDS: docusate sod 100mg capsule PO SCH ×2 (08:00→20:02)
[2020-06-11] MEDS: LORazepam 1 MG tablet PO PRN ×2 (08:00→19:30)
[2020-06-11] MEDS: benztropine 1mg tablet PO SCH ×2 (08:00→20:02)
[2020-06-11] MEDS: acetaminophen 325mg tablet PO PRN ×2 (11:36→20:04)
--- NOTE | 2020-06-11 13:01 | NUR ---
NURSING PROGRESS NOTE Legal hold: Voluntary Client on voluntary status for DTS Report received from [facility] with use of SBAR Why are they here: Pt. presented to the ER after being referred by her psychiatrist, Dr. Jacinto. She reported depression and S/I during the past couple of months. Also, A/VILLAREAL that tell her to, "Sit in the middle of the street and see what happens." Pt. does admit to a history of S/A as well. Assessment What has happened this shift: Up early and sitting on bed. States she is a "little bit upset because I'm not sure about going home." Still hearing voices but "not too bad." Mostly anxious about discharge as no definitive plan in place or when. Per Dr. Jacinto, he is slowly increasing her Clozaril. Has some hip pain which seems to be well treated with Tylenol. Isolates to room at times resting on bed. Responds well to kindness and reassurance. S/I, H/I: passive SI A/VH: Voices Sleep: None ADL's: Independent Group attendance: no group today/ did go on patio Were meds taken: Yes Any med S/E: Pt. denies, none observed. Mental Status Exam Appearance: slightly disheveled Eye contact: Fair Behavior: Cooperative, responds to kindness Speech: Clear, normal rate/rhythm. Mood: depressed but brighter Affect: some anxiety Thought process: circumstantial Thought Content: discharge Cognition: Alert Insight: fair Judgment: fair Interventions PRN's used: Ativan x1 Therapeutic interventions: Maintained a safe and supportive environment, ensured contract for safety, provided clear and simple instructions, oriented to reality, monitored behaviors and need for intervention, encouraged participation on the unit, Q 15min safety checks. Restraints/seclusion/emergency medication: N/A Justification of Continued Inpatient Treatment: Patient requires interruption of current crises, medication adjustments, and a safe and supportive environment.
[2020-06-11] MEDS: CLOZAPINE 100 MG TAB.RAPDIS PO SCH (17:56)
[2020-06-11] MEDS: CLOZAPINE 25 MG oral disintegrating tablet PO SCH (17:56)
[2020-06-11 19:51] VITALS: BP 118/82
[2020-06-11] MEDS: temazepam 15mg capsule PO SCH (20:02)
[2020-06-11] MEDS: mirtazapine 15mg tablet PO SCH (20:02)
[2020-06-11] MEDS: quetiapine 100mg tablet PO SCH (20:03)
--- NOTE | 2020-06-11 22:57 | NUR ---
NURSING PROGRESS NOTE Legal hold: Voluntary Client on voluntary status for DTS Report received from [facility] with use of SBAR Why are they here: Pt. presented to the ER after being referred by her psychiatrist, Dr. Jacinto. She reported depression and S/I during the past couple of months. Also, A/VILLAREAL that tell her to, "Sit in the middle of the street and see what happens." Pt. does admit to a history of S/A as well. Assessment What has happened this shift: The patient was up on the unit and sitting in the patient dining room with some socialization with peers. She was cooperative when approached for the evening assessment. She was dressed appropriate but appeared disheveled. She was alert and oriented and able to answer all of the assessment questions appropriately. She is medication compliant and she denies medication side effects. At the beginning of the shift and stated that her anxiety was "moderately high" She stated that when her anxiety goes up she feels like she has bugs crawling all of her" When asked to describe her mood she stated she felt frustrated and disgraceful. She stated she felt disgraceful because she used cuss words at times and stated she felt frustrated because she had nothing to do here on the unit but then also admitted she did not attempt to go to any groups during the day. Her affect was blunted. She reports a decreased appetite and decreased concentration and focus. She stated that she has frequent suicidal and state it was because she was hearing voices in her head. She did state that she wanted to live for her dog. She did not appear distracted when observed in the patient dining room or during the evening assessment. She remains on q 15 minute safety checks and has not had any self injurious behaviors reported or observed. She was given prn ativan for complaints of anxiety. Insight and judgement are impaired.
[2020-06-12 07:45] VITALS: BP 116/83
[2020-06-12] MEDS: docusate sod 100mg capsule PO SCH ×2 (08:00→20:03)
[2020-06-12] MEDS: gabapentin 300mg capsule PO SCH ×3 (08:23→20:02)
[2020-06-12] MEDS: carvedilol 6.25mg tablet PO SCH ×2 (08:23→20:04)
[2020-06-12] MEDS: pantoprazole 40mg Tablet.DR PO SCH (08:23)
[2020-06-12] MEDS: LORazepam 1 MG tablet PO PRN ×2 (08:23→19:28)
[2020-06-12] MEDS: atorvastatin 20mg tablet PO SCH (08:24)
[2020-06-12] MEDS: benztropine 1mg tablet PO SCH ×2 (08:24→20:04)
[2020-06-12] MEDS: buPROPion SR 100mg tab PO SCH ×2 (08:24→20:03)
[2020-06-12] MEDS: LIDOcaine 5% patch TP SCH (08:25)
--- NOTE | 2020-06-12 09:11 | NUR ---
Reassessment: Pt with slightly fluctuating PO intake however overall averaging 75-100% PO intake meeting nutrient needs. No wt loss since admit. [facility] 06/12. No nutrition intervention warranted at this time. Will continue to follow. Recommend: 1. continue regular diet 2. routine bowel care 3. weekly wts Addendum: 06/12/20 at [address] Amended: Links added.
--- NOTE | 2020-06-12 10:00 | NUR ---
Group Therapy: Process Group This Clinicians goal for this process group were as follows: (1) Ask scaling questions about patients current anxiety, depression, and irritability symptoms as a check-in. (2) Provide psychoeducation on grounding activities as a means to reduce the acuity of unwanted mental health symptoms. (3) Introduce mandalas as one such activity for group participation within the milieu. (4) Check-in with patients during the coloring activity to reinforce the importance of engaging in adaptive grounding activities. Patient identified experiencing the following levels of anxiety, depression, and anger/irritability while present in the group milieu. Anxiety: 07/24 Depression: 04/23 Anger/irritability: 08/23 Patient presented as open and cooperative within the group milieu. Patient was dressed in a personal blue t-shirt with a [place] emblem on the front and floral patterned blue pants that were appropriate within the milieu. Patient's thought content was clear and concrete. Patient's thought process was clear, coherent, and linear. This Clinician did not observe Patient responding to any internal stimuli during session; however, he did observe Patient frequently making comments to herself about her process as she began to color her mandala. Patient arrived to the group milieu about 40 minutes into the process group. She presented as verbally engaged and nonobtrusive during the process group. This Clinician assisted Patient on one occasion at sorting out different shades of the color orange before she began coloring her mandala. Ramakrishna Beth MA, MONTRELL Addendum: 06/12/20 at 1117 by Ramakrishna Beth SS Amended: Links added.
--- NOTE | 2020-06-12 10:34 | NUR ---
CM/DCP Presenting Issues: Pt's been feeling less confident about going home straight from [facility]. She had previously declined a [facility] referral. Interventions: SS met w/pt this morning @ engaged pt in a check-in activity to assess her readiness for d/c. Per discussion, pt acknowledged that she has been feeling less confident about being able to manage herself at home w/o IHSS support. SS asked her if she would be willing to transition to [facility] to build up that confidence and communicate her needs to IHSS while there. Pt agreed to this. SS informed Dr. Jacinto and he agreed that going to the [facility] would be beneficial to the pt. Plan: SS will complete [facility] referral and request nursing staff to place PPD to facilitate [facility] placement. Maryjane Moctezuma LCSW Addendum: 06/12/20 at 1100 by Maryjane Moctezuma SS Amended: Links added.
[2020-06-12] MEDS ORDERED: tuberculin, purif. prot. deriv. 5 units/0.1ml ID ONE (11:05)
--- NOTE | 2020-06-12 14:34 | NUR ---
NURSING PROGRESS NOTE Legal hold: Voluntary Client on voluntary status for DTS Report received from [facility] with use of SBAR Why are they here: Pt. presented to the ER after being referred by her psychiatrist, Dr. Jacinto. She reported depression and S/I during the past couple of months. Also, A/VILLAREAL that tell her to, "Sit in the middle of the street and see what happens." Pt. does admit to a history of S/A as well. Assessment What has happened this shift: Pt feels depressed, when asked about SI, she stated, "off and on." When asked if she had a plan, pt stated "yes, 1, 2, & 3" but would not elaborate. Pt has AH, sometimes CAH telling her to kill herself. She states that she hears 4 voices with the worst one being the voice of Keyona Paul telling her she needs to get her life together. Pt c/o increased anxiety this morning due to a loud male pt who was having aggressive verbal outbursts this morning. She was medicated with PRN Ativan 1 mg @ 0823 with good effect. Pt contracts for safety here, no unsafe behaviors noted. Placed PPD left forearm today as pt now is receptive to a [facility] referral. S/I, H/I: Pt denies HI, has vague, intermittent SI. A/VH: +AH, CAH at times, denies VH Sleep: Pt slept 8 hours last night per noc shift report. ADL's: Independent, pt showered today. Group attendance: Yes Were meds taken: Yes Any med S/E: None noted or reported. Mental Status Exam Appearance: Older woman with somewhat messy brown, feathered hair dressed in street clothes. Eye contact: Good Behavior: Pleasant, cooperative Speech: Clear, audible, normal rate & rhythm. Mood: Depressed, anxious Affect: Animated Thought process: Linear Thought Content: Upset over another patient yelling threats and obscenities this morning, excited about [facility] referral. Cognition: A/O X 4 Insight: Fair Judgment: Fair to good. Interventions PRN's used: Ativan 1mg X 1 Therapeutic interventions: 1:1 assessment, establishment of rapport, active listening, therapeutic conversation, ensured contract for safety, medication administration/education/monitoring, encouragement to attend groups, anxiety management, Q 15 minute safety checks. Restraints/seclusion/emergency medication: N/A Justification of Continued Inpatient Treatment: Patient requires interruption of current crises, medication adjustments, and a safe and supportive environment until stable and ready to discharge.
[2020-06-12] MEDS: CLOZAPINE 100 MG TAB.RAPDIS PO SCH (17:41)
[2020-06-12] MEDS: CLOZAPINE 25 MG oral disintegrating tablet PO SCH (17:41)
--- NOTE | 2020-06-12 18:14 | NUR ---
Faxed Pre-assessment Survey to [facility] Maryjane Moctezuma, ELECTRIC TRANSFER OPERATOR Addendum: 06/12/20 at 1814 by Maryjane Moctezuma SS Amended: Links added.
[2020-06-12] MEDS: temazepam 15mg capsule PO SCH (20:02)
[2020-06-12] MEDS: quetiapine 100mg tablet PO SCH (20:04)
[2020-06-12] MEDS: mirtazapine 15mg tablet PO SCH (20:04)
[2020-06-12 20:28] VITALS: BP 136/58
[2020-06-12] MEDS: albuterol 2.5 MG/3 ML nebule NEB PRN (20:48)
--- NOTE | 2020-06-13 04:35 | NUR ---
NURSING PROGRESS NOTE Legal hold: Voluntary Client on voluntary status for DTS Report received from CHICO Angel with use of SBAR Why are they here: Pt. presented to the ER after being referred by her psychiatrist, Dr. Jacinto. She reported depression and S/I during the past couple of months. Also, A/VILLAREAL that tell her to, "Sit in the middle of the street and see what happens." Pt. does admit to a history of S/A as well. Assessment What has happened this shift: Patient ambulating the villasenor at the beginning of shift. Pleasant and cooperative with care; compliant with medication. Denies SI, HI, A/VH and does not appear to be responding to IS this shift. Appears tired and depressed, providing minimal conversation. Participated in HS snack and removed Lidocaine patch before returning to bed. Patient provided warm blanket and expressed enthusiasm; does not appear to be having difficulty sleeping. S/I, H/I: Denies A/VH: Denies Sleep: Refer to sleep assessment ADL's: Independent Group attendance: No groups this shift Were meds taken: Yes, without incident Any med S/E: None observed or reported. Mental Status Exam Appearance: Neat, appropriately dressed in personal attire. Eye contact: Good Behavior: Pleasant, cooperative, isolative Speech: Clear, audible, normal rate & rhythm. Mood: Depressed, tired Affect: Flat Thought process: Linear Thought Content: Hard to assess; close ended answers Cognition: A/O X 4 Insight: Fair Judgment: Fair to good. Interventions PRN's used: None Therapeutic interventions: 1:1 assessment, establishment of rapport, active listening, therapeutic conversation, ensured contract for safety, medication administration/education/monitoring, encouragement to attend groups, anxiety management, Q 15 minute safety checks. Restraints/seclusion/emergency medication: N/A Justification of Continued Inpatient Treatment: Patient requires interruption of current crises, medication adjustments, and a safe and supportive environment until stable and ready to discharge.
[2020-06-13] MEDS: LORazepam 1 MG tablet PO PRN ×2 (05:20→12:16)
[2020-06-13 07:32] VITALS: BP 141/81
[2020-06-13] MEDS: carvedilol 6.25mg tablet PO SCH ×2 (07:53→19:39)
[2020-06-13] MEDS: gabapentin 300mg capsule PO SCH ×3 (07:54→20:03)
[2020-06-13] MEDS: docusate sod 100mg capsule PO SCH ×2 (07:54→08:00)
[2020-06-13] MEDS: atorvastatin 20mg tablet PO SCH (07:54)
[2020-06-13] MEDS: pantoprazole 40mg Tablet.DR PO SCH (07:54)
[2020-06-13] MEDS: benztropine 1mg tablet PO SCH ×2 (07:54→19:39)
[2020-06-13] MEDS: LIDOcaine 5% patch TP SCH (07:55)
[2020-06-13] MEDS: buPROPion SR 100mg tab PO SCH ×2 (07:55→19:39)
[2020-06-13] MEDS: clozapine 25mg tablet PO SCH (07:56)
--- NOTE | 2020-06-13 12:39 | NUR ---
ACCEPTED AT [facility] Macie interviewed for [facility] with machine sign writer and Calvin via Face Time. She has been accepted and they would like to admit her on Tuesday. MONTRELL Howe
--- NOTE | 2020-06-13 13:24 | NUR ---
NURSING PROGRESS NOTE Legal hold: Voluntary Client on voluntary status for DTS Report received from Kizzy Sanchez RN with use of SBAR Why are they here: Pt. presented to the ER after being referred by her psychiatrist, Dr. Jacinto. She reported depression and S/I during the past couple of months. Also, A/VILLAREAL that tell her to, "Sit in the middle of the street and see what happens." Pt. does admit to a history of S/A as well. Assessment What has happened this shift: Pt rated her depression at an 11/10 this morning. She has some vague intermittent SI with no plan. Pt states, "but I think I can control it and tell someone." Pt continues to have AH. Pt states the voices are saying derogatory things to her like "you're worthless, you're no good, you're the black sheep." Before lunch, pt stated that "the voices are really, really bad." Administered prn Ativan 1 mg at 1216 with good effect. Pt has been accepted at [facility] with possible discharge on Tuesday. S/I, H/I: Pt denies HI, has vague, intermittent SI. A/VH: +AH, denies VH Sleep: Pt slept 8 hours last night per noc shift report. ADL's: Independent Group attendance: Yes Were meds taken: Yes Any med S/E: None noted or reported. Mental Status Exam Appearance: Older woman with somewhat messy brown, feathered hair dressed in street clothes. Eye contact: Good Behavior: Pleasant, cooperative Speech: Clear, audible, normal rate & rhythm. Mood: Depressed Affect: Congruent Thought process: Linear Thought Content: distressed by the voices today Cognition: A/O X 2, pt is disoriented to time/date and states that she keeps thinking she is at [facility]. Insight: Fair Judgment: Fair to good. Interventions PRN's used: Ativan 1 mg X 1 Therapeutic interventions: 1:1 assessment, active listening, therapeutic conversation, ensured contract for safety, medication administration/education/monitoring, encouragement to attend groups, symptom management, Q 15 minute safety checks. Restraints/seclusion/emergency medication: N/A Justification of Continued Inpatient Treatment: Patient requires interruption of current crisis, medication adjustments, and a safe and supportive environment until stable and ready to discharge. Pt has been accepted at the [facility] with discharge anticipated next week.
[2020-06-13] MEDS: CLOZAPINE 100 MG TAB.RAPDIS PO SCH (17:00)
[2020-06-13] MEDS: CLOZAPINE 25 MG oral disintegrating tablet PO SCH (17:00)
[2020-06-13] MEDS ORDERED: OLAN10TA19 PO (17:42)
[2020-06-13] MEDS ORDERED: LIDO700A47 TP (17:42)
[2020-06-13] MEDS ORDERED: PANT-47 PO (17:42)
[2020-06-13] MEDS ORDERED: DOCU100C40 PO (17:42)
[2020-06-13] MEDS ORDERED: CLOZ25TA12 PO (17:42)
[2020-06-13] MEDS ORDERED: ATOR20TA66 PO (17:42)
[2020-06-13] MEDS ORDERED: QUET100T33 PO (17:42)
[2020-06-13] MEDS ORDERED: TEMA15CA5 PO (17:42)
[2020-06-13] MEDS ORDERED: CLOZ100T35 PO (17:42)
[2020-06-13] MEDS ORDERED: BENZ0.5T4 PO (17:42)
[2020-06-13] MEDS ORDERED: ATI1T PO (17:42)
[2020-06-13] MEDS ORDERED: CARV6.253 PO (17:42)
[2020-06-13] MEDS ORDERED: CLOZ25TA PO (17:42)
[2020-06-13] MEDS ORDERED: MIRT15TA8 PO (17:42)
[2020-06-13] MEDS ORDERED: GABA300C PO (17:42)
[2020-06-13] MEDS ORDERED: BUPR100T7 PO (17:42)
[2020-06-13 19:55] VITALS: BP 123/66
[2020-06-13] MEDS: quetiapine 100mg tablet PO SCH (20:03)
[2020-06-13] MEDS: temazepam 15mg capsule PO SCH (20:03)
[2020-06-13] MEDS: mirtazapine 15mg tablet PO SCH (20:03)
--- NOTE | 2020-06-13 22:23 | NUR ---
NURSING PROGRESS NOTE Legal hold: Voluntary Client on voluntary status for DTS Report received from CHICO Isaac with use of SBAR Why are they here: Pt. presented to the ER after being referred by her psychiatrist, Dr. Jacinto. She reported depression and S/I during the past couple of months. Also, A/VILLAREAL that tell her to, "Sit in the middle of the street and see what happens." Pt. does admit to a history of S/A as well. Assessment What has happened this shift: Patient sleeping at change of shift, difficult to wake up. Pt eventually woke up and initially reported feeling depressed but upon hearing that she has been accepted to [facility] she stated that she felt much better. Pt is very happy about dc'ing to the [facility], as she has been kicked out of there in the past. Pt accepted hs meds with no issue and was generally pleasant during the evening shift. S/I, H/I: Denies A/VH: Denies Sleep: Refer to sleep assessment ADL's: Independent Group attendance: No groups this shift Were meds taken: Yes, without incident Any med S/E: None observed or reported. Mental Status Exam Appearance: Neat, appropriately dressed in personal attire. Eye contact: Good Behavior: Pleasant, cooperative Speech: Clear, audible, normal rate & rhythm. Mood: tired Affect: Flat Thought process: Linear Thought Content: dc to [facility] Cognition: A/O X 4 Insight: Fair Judgment: Fair to good. Interventions PRN's used: None Therapeutic interventions: 1:1 assessment, establishment of rapport, active listening, therapeutic conversation, ensured contract for safety, medication administration/education/monitoring, encouragement to attend groups, anxiety management, Q 15 minute safety checks. Restraints/seclusion/emergency medication: N/A Justification of Continued Inpatient Treatment: Patient requires interruption of current crises, medication adjustments, and a safe and supportive environment until stable and ready to discharge.
[2020-06-14] MEDS: LORazepam 1 MG tablet PO PRN ×2 (00:04→16:29)
[2020-06-14] MEDS: acetaminophen 325mg tablet PO PRN (05:03)
[2020-06-14] MEDS: carvedilol 6.25mg tablet PO SCH ×2 (07:26→20:20)
[2020-06-14] MEDS: benztropine 1mg tablet PO SCH ×2 (07:26→20:18)
[2020-06-14] MEDS: gabapentin 300mg capsule PO SCH ×3 (07:26→20:18)
[2020-06-14] MEDS: clozapine 25mg tablet PO SCH (07:26)
[2020-06-14] MEDS: buPROPion SR 100mg tab PO SCH ×2 (07:26→20:19)
[2020-06-14] MEDS: pantoprazole 40mg Tablet.DR PO SCH (07:26)
[2020-06-14] MEDS: atorvastatin 20mg tablet PO SCH (07:26)
[2020-06-14 07:32] VITALS: BP 121/71
[2020-06-14] MEDS: LIDOcaine 5% patch TP SCH (07:32)
--- NOTE | 2020-06-14 10:24 | NUR ---
NURSING PROGRESS NOTE Legal hold: Voluntary Client on voluntary status for DTS Report received from Kizzy Sanchez RN with use of SBAR Why are they here: Pt. presented to the ER after being referred by her psychiatrist, Dr. Jacinto. She reported depression and S/I during the past couple of months. Also, A/VILLAREAL that tell her to, "Sit in the middle of the street and see what happens." Pt. does admit to a history of S/A as well. Assessment What has happened this shift: Pt continues to feel depressed, though depression is somewhat better with knowing she has a discharge plan to the [facility] on Tuesday. Pt states she has been there before 2-3 years ago but got kicked out for fighting with another patient there. Pt states it was the pt's fault as she was going around telling everyone she was on her period then asking everyone for a dollar so she could go to the dollar store to get feminine products. Pt reports she gave the other woman a dollar and the the other woman went to the store and came back with a big bag of miscellaneous items, essentially had been conning people for money. Pt was upset with her roommate this morning as her roommate is on her period and there was blood all over the toilet and the floor in the bathroom. Her roommate had also left bloody underwear on the floor near her bed. This RN told pt we would have housekeeping come in and clean the room. Pt indicated that she felt the other patient should be made to clean up after herself and not have housekeeping do it. Pt stated that the voices are bad this morning. "I woke up in a tattle tail mood as you know." Pt said the voices were saying things like, "yay, hooray, do it again," meaning they were encouraging her to tell on people some more. Pt states the worst voice continues to be Keyona Humberto judging her and chiding her. S/I, H/I: Pt denies HI, has vague, intermittent SI. A/VH: +AH, denies VH Sleep: Pt slept 9 hours last night per noc shift report. ADL's: Independent Group attendance: No Were meds taken: Yes Any med S/E: None noted or reported. Mental Status Exam Appearance: Older woman with somewhat messy brown, feathered hair dressed in street clothes. Eye contact: Good Behavior: Pleasant, cooperative Speech: Clear, audible, normal rate & rhythm. Mood: Depressed, anxious Affect: Congruent Thought process: Linear Thought Content: Upset with messy roommate. Cognition: A/O X 2 Insight: Fair Judgment: Fair to good. Interventions PRN's used: None Therapeutic interventions: 1:1 assessment, active listening, therapeutic conversation, ensured contract for safety, medication administration/education/monitoring, positive reinforcement, Q 15 minute safety checks. Restraints/seclusion/emergency medication: N/A Justification of Continued Inpatient Treatment: Patient requires interruption of current crisis, medication adjustments, and a safe and supportive environment until stable and ready to discharge. Pt has been accepted at the [facility] with discharge anticipated Tuesday. Addendum: 06/14/20 at 1321 by Echo Moffett RN (Lee) Pt did actually attend group today.
[2020-06-14] MEDS: CLOZAPINE 100 MG TAB.RAPDIS PO SCH (17:19)
[2020-06-14] MEDS: CLOZAPINE 25 MG oral disintegrating tablet PO SCH (17:19)
[2020-06-14 20:00] VITALS: BP 132/76
[2020-06-14] MEDS: quetiapine 100mg tablet PO SCH (20:19)
[2020-06-14] MEDS: mirtazapine 15mg tablet PO SCH (20:20)
[2020-06-14] MEDS: temazepam 15mg capsule PO SCH (20:21)
--- NOTE | 2020-06-14 22:46 | NUR ---
NURSING PROGRESS NOTE Legal hold: Voluntary Client on voluntary status for DTS Report received from CHICO Isaac with use of SBAR Why are they here: Pt. presented to the ER after being referred by her psychiatrist, Dr. Jacinto. She reported depression and S/I during the past couple of months. Also, A/VILLAREAL that tell her to, "Sit in the middle of the street and see what happens." Pt. does admit to a history of S/A as well. Assessment What has happened this shift: Pt was up and in her room at shift change. Pt reports feeling depressed but not as sever as before. She attributes that to her going to the [facility] on Tuesday. She said earlier today she was upset with her room mate but is over that right now. she was med compliant and cooperative this shift. S/I, H/I: Pt denies HI, has vague, intermittent SI. A/VH: +AH, denies VH Sleep: Pt slept 9 hours last night per noc shift report. ADL's: Independent Group attendance: No Were meds taken: Yes Any med S/E: None noted or reported. Mental Status Exam Appearance: Older woman with somewhat messy brown, feathered hair dressed in street clothes. Eye contact: Good Behavior: Pleasant, cooperative Speech: Clear, audible, normal rate & rhythm. Mood: Depressed, anxious Affect: Congruent Thought process: Linear Thought Content: Upset with messy roommate. Cognition: A/O X 2 Insight: Fair Judgment: Fair to good. Interventions PRN's used: None Therapeutic interventions: 1:1 assessment, active listening, therapeutic conversation, ensured contract for safety, medication administration/education/monitoring, positive reinforcement, Q 15 minute safety checks. Restraints/seclusion/emergency medication: N/A Justification of Continued Inpatient Treatment: Patient requires interruption of current crisis, medication adjustments, and a safe and supportive environment until stable and ready to discharge. Pt has been accepted at the [facility] with discharge anticipated Tuesday.
[2020-06-15] MEDS: acetaminophen 325mg tablet PO PRN (07:31)
[2020-06-15 08:00] VITALS: BP 146/76
[2020-06-15] MEDS: clozapine 25mg tablet PO SCH (08:46)
[2020-06-15] MEDS: benztropine 1mg tablet PO SCH ×2 (08:46→20:15)
[2020-06-15] MEDS: atorvastatin 20mg tablet PO SCH (08:46)
[2020-06-15] MEDS: carvedilol 6.25mg tablet PO SCH ×2 (08:46→20:14)
[2020-06-15] MEDS: pantoprazole 40mg Tablet.DR PO SCH (08:46)
[2020-06-15] MEDS: gabapentin 300mg capsule PO SCH ×3 (08:46→20:15)
[2020-06-15] MEDS: buPROPion SR 100mg tab PO SCH ×2 (08:47→20:13)
[2020-06-15] MEDS: LIDOcaine 5% patch TP SCH (10:20)
[2020-06-15] MEDS: LORazepam 1 MG tablet PO PRN ×2 (10:31→18:28)
--- NOTE | 2020-06-15 11:41 | NUR ---
Nursing Progress Note: Legal hold: Voluntary Client on voluntary status for DTS Report received from nurse with use of SBAR: Kizzy Guzmán RN Why are they here: Pt. presented to the ER after being referred by her psychiatrist, Dr. Jacinto. She reported depression and S/I during the past couple of months. Also, A/VILLAREAL that tell her to, "Sit in the middle of the street and see what happens." Pt. does admit to a history of S/A as well. Assessment What has happened this shift: Received pt. sleeping in bed at the beginning of the shift, she awoke and came and sat in a chair in the hallway and c/o "feeling down," and a headache, PRN Tylenol administered with effectiveness. Fall precautions continue to be in place, however pt. reports that she has not been using her FWW because "it makes too much noise." This scientific writer was able to remedy this, and pt. reported content, will continue to monitor. 1:1 completed later at bedside, pt. presents as cooperative with some anxiety, no unintentional body movements or tremors noted. Pt. denies S/I states, "Not at this time." She endorses ongoing depression, however holds her arms wide and states, "It was this much," she then closes her arms penitentiary, states, "Now it's this much." When questioned regarding A/VILLAREAL, pt. declines to discuss. She states, "I don't want to sabotage my chances of going to [facility]," however pt. does not appear internally preoccupied. Pt. attends outside patio time with others, and afterward requests PRN Ativan for anxiety. Pt. reports that she was discussing past life events with her peers while out on the patio and this caused her to feel anxious, she states, "It brought up thoughts of things that happened to me." Ativan administered, and pt. was able to nap during the afternoon, will continue to monitor. Physical Therapy visited the unit and provided pt. with a new walker that slides easily and does not make noise. Per physical therapist, pt. will be discharged from physical therapy at this time, but it will be recommended in PT notes that pt. D/C with a walker. Also, physical therapist explained to pt. that her rt. leg is longer than her left and she will need an outpatient orthopedic referral for special shoes to be made for her, pt. reports understanding. S/I, H/I: Denies A/VH: When questioned regarding A/VILLAREAL, pt. declines to discuss. She states, "I don't want to sabotage my chances of going to [facility]," however pt. does not appear internally preoccupied. Sleep: Pt. reports she slept well, sleep hours are 8.5 ADL's: Uses FWW to ambulate, fall precautions in place. Group attendance: Attends patio time with others Were meds taken: Yes Any med S/E: None Mental Status Exam Appearance: Hair slightly disheveled, appropriately dressed Eye contact: Good Behavior: Cooperative and anxious Speech: Soft, WNL Mood: Animated with depressive episodes Affect: Blunted Thought process: Some poverty of thought Thought Content: Some ongoing depression and anxiety. Possible command A/VILLAREAL Cognition: A&O X4 Insight: Fair Judgment: Fair Interventions PRN's used: Tylenol and Ativan X1 Therapeutic interventions: Maintained a safe and supportive environment, ensured contract for safety, provided clear and simple instructions, oriented to reality, monitored behaviors and need for intervention, obtained a new walker for pt. and provided re-education on PT discharge instructions, and maintained fall precautions and Q 15min safety checks. Restraints/seclusion/emergency medication: N/A Justification of Continued Inpatient Treatment: Per LIZET Duke, pt. continues to require titration of medications while maintaining a safe and therapeutic environment. She will D/C to [facility] on Tuesday.
[2020-06-15] MEDS: CLOZAPINE 25 MG oral disintegrating tablet PO SCH (18:25)
[2020-06-15] MEDS: CLOZAPINE 100 MG TAB.RAPDIS PO SCH (18:25)
[2020-06-15 20:00] VITALS: BP 117/74
[2020-06-15] MEDS: quetiapine 100mg tablet PO SCH (20:14)
[2020-06-15] MEDS: temazepam 15mg capsule PO SCH (20:14)
[2020-06-15] MEDS: mirtazapine 15mg tablet PO SCH (20:15)
--- NOTE | 2020-06-15 22:35 | NUR ---
Nursing Progress Note: Legal hold: Voluntary Client on voluntary status for DTS Report received from nurse with use of SBAR: Marlin RN Why are they here: Pt. presented to the ER after being referred by her psychiatrist, Dr. Jacinto. She reported depression and S/I during the past couple of months. Also, A/VILLAREAL that tell her to, "Sit in the middle of the street and see what happens." Pt. does admit to a history of S/A as well. Assessment What has happened this shift: Pt was in her room a change of shift she reports having some depression today but it is less than before. Pt waiting for her placement at the [facility]. She denies SI/HI at this time and would not state for AH/VH. Pt was up for snack in group room and meds then going to bed. S/I, H/I: Denies A/VH: When questioned regarding A/VILLAREAL, pt. declines to discuss. She states, "I don't want to sabotage my chances of going to [facility]," however pt. does not appear internally preoccupied. Sleep: Pt. reports she slept well, sleep hours are 8.5 ADL's: Uses FWW to ambulate, fall precautions in place. Group attendance: Attends patio time with others Were meds taken: Yes Any med S/E: None Mental Status Exam Appearance: Hair slightly disheveled, appropriately dressed Eye contact: Good Behavior: Cooperative and anxious Speech: Soft, WNL Mood: Animated with depressive episodes Affect: Blunted Thought process: Some poverty of thought Thought Content: Some ongoing depression and anxiety. Possible command A/VILLAREAL Cognition: A&O X4 Insight: Fair Judgment: Fair Interventions PRN's used: none Therapeutic interventions: Maintained a safe and supportive environment, ensured contract for safety, provided clear and simple instructions, oriented to reality, monitored behaviors and need for intervention, obtained a new walker for pt. and provided re-education on PT discharge instructions, and maintained fall precautions and Q 15min safety checks. Restraints/seclusion/emergency medication: N/A Justification of Continued Inpatient Treatment: Per LIZET Duke, pt. continues to require titration of medications while maintaining a safe and therapeutic environment. She will D/C to [facility] on Tuesday.
[2020-06-16] MEDS: LORazepam 1 MG tablet PO PRN ×2 (06:04→13:44)
[2020-06-16] MEDS: acetaminophen 325mg tablet PO PRN (06:04)
[2020-06-16 07:38] VITALS: BP 110/80
[2020-06-16] MEDS: LIDOcaine 5% patch TP SCH (08:00)
[2020-06-16] MEDS: gabapentin 300mg capsule PO SCH ×2 (08:43→13:43)
[2020-06-16] MEDS: atorvastatin 20mg tablet PO SCH (08:43)
[2020-06-16] MEDS: carvedilol 6.25mg tablet PO SCH (08:43)
[2020-06-16] MEDS: benztropine 1mg tablet PO SCH (08:43)
[2020-06-16] MEDS: clozapine 25mg tablet PO SCH (08:43)
[2020-06-16] MEDS: buPROPion SR 100mg tab PO SCH (08:44)
[2020-06-16] MEDS: pantoprazole 40mg Tablet.DR PO SCH (08:44)
--- NOTE | 2020-06-16 11:04 | NUR ---
Nursing Progress Note: Legal hold: Voluntary Client on voluntary status for DTS Report received from nurse with use of SBAR: CHICO Suazo Why are they here: Pt. presented to the ER after being referred by her psychiatrist, Dr. Jacinto. She reported depression and S/I during the past couple of months. Also, A/VILLAREAL that tell her to, "Sit in the middle of the street and see what happens." Pt. does admit to a history of S/A as well. Assessment What has happened this shift: Received pt. sleeping sitting in chair beside her bed at the beginning of the shift, she reports chronic back pain 06/23, however just received PRN Tylenol on car shifter and refuses Lidocaine patch. Fall precautions continue to be in place, and pt. is using her FWW (per physical therapy evaluation it is recommended that pt. discharge with a walker). 1:1 completed at bedside, pt. presents as cooperative with restlessness r/t desire to discharge. She continues to deny any S/I, however reports "a little" ongoing depression and anxiety, states, "That's normal for me." Pt. reports some ongoing A/VILLAREAL which she describes as "whispering," but she does not appear internally preoccupied. Pt. up throughout the morning watching TV and interacting appropriately with others. S/I, H/I: Denies A/VH: Some ongoing A/VILLAREAL which she describes as "whispering," but she does not appear internally preoccupied. Sleep: Pt. reports she slept well, sleep hours are 8 ADL's: Uses FWW to ambulate, fall precautions in place. Group attendance: Attends patio time with others Were meds taken: Yes Any med S/E: None Mental Status Exam Appearance:Neat and appropriately dressed Eye contact: Good Behavior: Cooperative with restlessness Speech: Soft, WNL Mood: Animated Affect: Blunted with animation Thought process: Some poverty of thought Thought Content: Some ongoing depression, anxiety, and A/VILLAREAL Cognition: A&O X4 Insight: Fair Judgment: Fair Interventions PRN's used: None Therapeutic interventions: Maintained a safe and supportive environment, ensured contract for safety, provided clear and simple instructions, oriented to reality, monitored behaviors and need for intervention, encouraged use of FWW, and maintained fall precautions and Q 15min safety checks. Restraints/seclusion/emergency medication: N/A Justification of Continued Inpatient Treatment: Pt. continues to require a safe and supportive environment and will D/C to [facility].
--- NOTE | 2020-06-16 12:28 | NUR ---
DISCHARGE PLANNING Completed and faxed signed Physician's Report, med orders, and PPD results to [facility]. Picked up Macie's medications to assist with CR admittance. Arpit will apple picking supervisor Macie around 1:30 PM today to take her to [facility]. MONTRELL Howe
--- NOTE | 2020-06-16 13:48 | NUR ---
Discharge Note: Pt. discharged from the unit at 1348 and was able to ambulate with assistance from this administrative underwriter to the the car of the pick up driver who will be transporting her to [facility]. Discharge packet, including medications and follow-up appointment reviewed with pt. by this administrative underwriter and she reports understanding. Per Dr. Jacinto, pt. will take 6.25mg of Coreg BID instead of the 12.5mg she had previously been taking. Belongings inventoried and returned to pt. by Richard ruano. No smoking cessation needed, and filled prescriptions were sent with pt. to the [facility]. Physical therapy had recommended that pt. use a walker at home, so a fax was sent to [facility] along with an MD order, for a walker to be delivered to [facility] for pt's use there.
== END 2020-06-16 13:45 | disposition short-term general hospital (02) | DRG 885 ==
LOC: ADULT MH 08:51
PROVIDERS: ADMIT Psychiatry & Neurology Psychiatry; ATTEND Psychiatry & Neurology Psychiatry
PROC: 3E0234Z Introduction of Serum, Toxoid and Vaccine into Muscle, Percutaneous Approach (ICD-10-PCS; principal; 2020-05-30)
DX: F25.1 Schizoaffective disorder, depressive type (principal); R45.851 Suicidal ideations; F31.9 Bipolar disorder, unspecified; E78.00 Pure hypercholesterolemia, unspecified; E78.5 Hyperlipidemia, unspecified; F17.210 Nicotine dependence, cigarettes, uncomplicated; R42 Dizziness and giddiness; J45.909 Unspecified asthma, uncomplicated; Z60.2 Problems related to living alone; F41.9 Anxiety disorder, unspecified; I11.0 Hypertensive heart disease with heart failure; I50.9 Heart failure, unspecified; K21.9 Gastro-esophageal reflux disease without esophagitis; M54.9 Dorsalgia, unspecified; Z23 Encounter for immunization
CPT/HCPCS: 36415; 72220; 73502; 80053; 80061; 83036; 85025; 87081; 90732; 94640; 94760; 97110; 97116; 97162

== ENCOUNTER 2020-06-18 03:15 | Emergency (ER) | payer MEDICARE, MEDICAID ==
[~2020-06-18] VITALS: Ht 152.4 cm; Wt 65.0 kg
[~2020-06-18 03:15] MED LIST changes: +ALB0.5UD IH; -ALBU90AE IH; +ATI1T PO; +ATOR20TA66 PO; -ATOR40TA PO; +BENZ0.5T4 PO; +BUPR100T7 PO; -BUPR200T PO; -CARV3.1289 PO; +CARV6.253 PO; -CLON-529 PO; +CLOZ100T35 PO; +CLOZ25TA PO; +CLOZ25TA12 PO; +DOCU100C40 PO; -GABA-532 PO; +GABA300C PO; +LIDO700A47 TP; -LISI1TAB32 PO; +MIRT15TA8 PO; -MIRT45TA83 PO; +OLAN10TA19 PO; -OLAN15TA3 PO; +PANT-47 PO; -PANT20TA3 PO; -QUET-1 PO; +QUET100T33 PO; +TEMA15CA5 PO
[2020-06-18 03:19] VITALS: BP 138/73
[2020-06-27] MEDS ORDERED: BENZ1TAB7 PO (14:09)
[2020-06-27] MEDS ORDERED: CLOZ100T13 PO (14:09)
[2020-06-27] MEDS ORDERED: MIRT15TA8 PO (14:09)
[2020-06-27] MEDS ORDERED: CLOZ25TA12 PO (14:09)
[2020-06-27] MEDS ORDERED: GABA300C PO (14:09)
[2020-06-27] MEDS ORDERED: CARV6.253 PO (14:09)
[2020-06-27] MEDS ORDERED: BUPR100T7 PO (14:09)
[2020-06-27] MEDS ORDERED: PANT-47 PO (14:09)
[2020-06-30] MEDS ORDERED: LORA-269 PO (12:03)
== END 2020-06-18 06:47 | disposition home or self-care (01) ==
LOC: ER 03:15
DX: M25.562 Pain in left knee (principal); J45.909 Unspecified asthma, uncomplicated; J44.9 Chronic obstructive pulmonary disease, unspecified; G89.29 Other chronic pain; F31.9 Bipolar disorder, unspecified; F20.9 Schizophrenia, unspecified; F12.90 Cannabis use, unspecified, uncomplicated; Z96.641 Presence of right artificial hip joint; Z86.69 Personal history of other diseases of the nervous system and sense organs; Z98.890 Other specified postprocedural states; Z56.0 Unemployment, unspecified; Z88.6 Allergy status to analgesic agent; Z88.5 Allergy status to narcotic agent; Z79.899 Other long term (current) drug therapy; W19.XXXA Unspecified fall, initial encounter; Y93.89 Activity, other specified; Y92.89 Other specified places as the place of occurrence of the external cause; Y99.8 Other external cause status
CPT/HCPCS: 73502; 73564; 99284

== ENCOUNTER 2020-06-20 20:56 | Emergency (ER) | payer MEDICARE, MEDICAID ==
[~2020-06-20] VITALS: Ht 152.4 cm; Wt 66.0 kg
--- NOTE | 2020-06-20 21:00 | NUR ---
PT ESCORTED BACK TO ER OVERFLOW ACCOMPANIED BY STAFF. PT CHANGED INTO GREEN SCRUBS, BELONGINGS INVENTORIED. PT GIVEN WATER AND OFFERED FOOD.
--- NOTE | 2020-06-20 21:20 | NUR ---
PT STATES SHE HAS BEEN STAYING AT [facility] X2 WEEKS. SHE SAID THE "VOICES" WERE GETTING "MORE AND MORE INTENSE" AND "TELLING ME TO DO THINGS THAT I DIDN'T WANT TO DO." PT STATES HER SI STEMS FROM THESE VOICES.
[2020-06-20 21:23] LABS: BASOPHILS # (AUTO) 0.1 X10'3 (0-0.2); BASOPHILS % (AUTO) 1.4 % (0-1); EOSINOPHILS # (AUTO) 0.2 X10'3 (0-0.9); EOSINOPHILS % (AUTO) 2.6 % (0-6); HEMATOCRIT 38.9 % (35.0-45.0); HEMOGLOBIN 13.1 g/dl (12.0-16.0); LYMPHOCYTES # (AUTO) 2.4 X10'3 (1.1-4.8); LYMPHOCYTES % (AUTO) 26.1 % (21-51); MEAN CORPUSCULAR HEMOGLOBIN 32.5 PG (27.0-31.0); MEAN CORPUSCULAR HGB CONC 33.6 g/dL (33.0-36.5); MEAN CORPUSCULAR VOLUME 96.9 FL (78-98); MEAN PLATELET VOLUME 8.3 FL (7.4-10.4); MONOCYTES # (AUTO) 0.7 X10'3 (0-0.9); MONOCYTES % (AUTO) 7.2 % (2-12); NEUTROPHILS # (AUTO) 5.7 X10'3 (1.8-7.7); NEUTROPHILS % (AUTO) 62.7 % (42-75); PLATELET COUNT 245 X10'3 (140-440); RED BLOOD COUNT 4.02 X10'6 (4.20-5.60); RED CELL DISTRIBUTION WIDTH 14.3 % (11.5-14.5); WHITE BLOOD COUNT 9.1 X10'3 (4.5-11.0)
[2020-06-20 21:39] LABS: ALANINE AMINOTRANSFERASE 45 U/L (12-78); ALBUMIN 3.6 G/DL (3.4-5.0); ALKALINE PHOSPHATASE 143 IU/L (46-116); ANION GAP 10 (8-16); ASPARTATE AMINO TRANSFERASE 21 U/L (10-37); BILIRUBIN,TOTAL 0.4 MG/DL (0.1-1.0); BLOOD UREA NITROGEN 25 MG/DL (7-18); BUN/CREATININE RATIO 22.7 (6.6-38.0); CALCIUM 9.2 MG/DL (8.5-10.1); CHLORIDE 108 MMOL/L (99-107); ETHANOL < 0.010 GM/DL (0.0-0.010); GLUCOSE 101 MG/DL (70-104); POTASSIUM 3.8 MMOL/L (3.5-5.1); SODIUM 144 MMOL/L (135-145); TOTAL CARBON DIOXIDE 25.6 MMOL/L (24-32); TOTAL PROTEIN 7.2 G/DL (6.4-8.2); eGFR 50 ML/MIN
[2020-06-20] MEDS ORDERED: LORA-269 PO (22:00)
[2020-06-20] MEDS ORDERED: GABA-530 PO (22:00)
[2020-06-20] MEDS ORDERED: PANT-47 PO (22:00)
[2020-06-20] MEDS ORDERED: OLAN10TA19 PO (22:00)
[2020-06-20] MEDS ORDERED: BUPR200T3 PO (22:00)
[2020-06-20] MEDS ORDERED: QUET200T30 PO (22:00)
[2020-06-20] MEDS ORDERED: BENZ0.5T4 PO (22:00)
[2020-06-20] MEDS ORDERED: CLOZ200T PO (22:00)
[2020-06-20] MEDS ORDERED: CARV-49 PO (22:00)
[2020-06-20] MEDS ORDERED: TEMA30CA PO (22:00)
[2020-06-20] MEDS ORDERED: CLOZ25TA36 PO (22:00)
[2020-06-20] MEDS ORDERED: MIRT45TA79 PO (22:00)
[2020-06-20] MEDS ORDERED: LORazepam 1 MG tablet PO PRN (22:40)
[2020-06-20] MEDS ORDERED: olanzapine 10mg tablet PO PRN (22:40)
[2020-06-20] MEDS ORDERED: clozapine 100mg tablet PO SCH (23:00)
[2020-06-20] MEDS ORDERED: mirtazapine 15mg tablet PO ONE (23:05)
[2020-06-20] MEDS ORDERED: carvedilol 6.25mg tablet PO ONE (23:05)
[2020-06-20] MEDS ORDERED: quetiapine 100mg tablet PO ONE (23:05)
[2020-06-20] MEDS ORDERED: benztropine 1mg tablet PO ONE (23:05)
[2020-06-20] MEDS ORDERED: BUPROPION HCL PO ONE (23:10)
[2020-06-20] MEDS: gabapentin 300mg capsule PO SCH (23:25)
--- NOTE | 2020-06-20 23:34 | NUR ---
PT WAS ABLE TO URINATE, URINE SENT TO LAB FOR UA/TOX
--- NOTE | 2020-06-20 23:40 | NUR ---
PT TOOK HS MEDICATIONS WITH NO ISSUE
[2020-06-21 00:02] LABS: URINE AMPHETAMINE SCREEN NEGATIVE (Neg); URINE BARBITUATE SCREEN NEGATIVE (Neg); URINE BENZODIAZEPINES SCREEN NEGATIVE (Neg); URINE CANNABINOID SCREEN NEGATIVE (Neg); URINE COCAINE SCREEN NEGATIVE (Neg); URINE METHADONE SCREEN NEGATIVE (Neg); URINE OPIATE SCREEN NEGATIVE (Neg); URINE PHENCYCLIDINE SCREEN NEGATIVE (Neg)
--- NOTE | 2020-06-21 02:32 | NUR ---
PT ASLEEP ON R SIDE, RR 16, EVEN AND UNLABORED
--- NOTE | 2020-06-21 05:00 | NUR ---
PT ASLEEP ON R SIDE BREATHS EVEN AND UNLABORED
[2020-06-21 05:38] VITALS: BP 121/58
--- NOTE | 2020-06-21 06:10 | NUR ---
PACKET SENT TO [facility]
[2020-06-21] MEDS ORDERED: pantoprazole 40mg Tablet.DR PO SCH (08:00)
[2020-06-21] MEDS ORDERED: benztropine 1mg tablet PO SCH (08:00)
[2020-06-21] MEDS ORDERED: BUPROPION HCL PO SCH (08:00)
[2020-06-21] MEDS ORDERED: carvedilol 6.25mg tablet PO SCH (08:00)
[2020-06-21] MEDS ORDERED: clozapine 25mg tablet PO SCH (08:00)
[2020-06-21] MEDS: gabapentin 300mg capsule PO SCH (08:21)
--- NOTE | 2020-06-21 08:42 | NUR ---
PT sleeping peacefully. Easy to awake. She ate breakfast and took am meds without complication and went back to sleep.
--- NOTE | 2020-06-21 10:00 | NUR ---
Pt sleeping. NAD
--- NOTE | 2020-06-21 11:56 | NUR ---
Pt continues to sleep. NAD, RR regular
--- NOTE | 2020-06-21 14:06 | NUR ---
Pt d/c to [facility] with CHICO Suazo via W/C. Pt NAD. Ate lunch, ambulated to bathroom just prior to d/c. .
[2020-06-21] MEDS ORDERED: mirtazapine 15mg tablet PO SCH (21:00)
[2020-06-21] MEDS ORDERED: quetiapine 100mg tablet PO SCH (21:00)
== END 2020-06-21 14:12 | disposition home or self-care (01) ==
LOC: ER 20:56
DX: R44.0 Auditory hallucinations (principal); F12.90 Cannabis use, unspecified, uncomplicated; R45.851 Suicidal ideations; J44.9 Chronic obstructive pulmonary disease, unspecified; G89.29 Other chronic pain; F31.9 Bipolar disorder, unspecified; F20.9 Schizophrenia, unspecified; Z86.69 Personal history of other diseases of the nervous system and sense organs; Z98.890 Other specified postprocedural states; Z56.0 Unemployment, unspecified; Z88.6 Allergy status to analgesic agent; Z88.5 Allergy status to narcotic agent; Z88.8 Allergy status to other drugs, medicaments and biological substances; Z79.899 Other long term (current) drug therapy
CPT/HCPCS: 36415; 80053; 80305; 80320; 85025; 99285

== ENCOUNTER 2020-07-06 13:18 | Emergency (ER) | payer MEDICARE, MEDICAID ==
[~2020-07-06] VITALS: Ht 152.4 cm; Wt 66.4 kg
[~2020-07-06 13:18] MED LIST changes: -ALB0.5UD IH; -ATI1T PO; -ATOR20TA66 PO; -BENZ0.5T4 PO; +BENZ1TAB7 PO; +BUPR200T3 PO; +CLOZ100T13 PO; -CLOZ100T35 PO; -CLOZ25TA PO; -DOCU100C40 PO; +GABA-530 PO; -LIDO700A47 TP; -OLAN10TA19 PO; -QUET100T33 PO; -SPIIN INH; -TEMA15CA5 PO; +TEMA30CA PO
[2020-07-06 13:26] VITALS: BP 116/63
[2020-07-06] MEDS ORDERED: acetaminophen 325mg tablet PO ONE (14:15)
--- NOTE | 2020-07-06 14:36 | NUR ---
PT BACK FROM XRAY IN STABLE CONDITION.
== END 2020-07-06 16:14 | disposition home or self-care (01) ==
LOC: ER 13:19
DX: M54.5 Low back pain (principal); J44.9 Chronic obstructive pulmonary disease, unspecified; G89.29 Other chronic pain; F31.9 Bipolar disorder, unspecified; F20.9 Schizophrenia, unspecified; F12.90 Cannabis use, unspecified, uncomplicated; Z98.890 Other specified postprocedural states; Z56.0 Unemployment, unspecified; Z88.5 Allergy status to narcotic agent; Z88.6 Allergy status to analgesic agent; Z88.8 Allergy status to other drugs, medicaments and biological substances; Z79.899 Other long term (current) drug therapy
CPT/HCPCS: 72100; 72220; 73610; 99284

== ENCOUNTER 2020-07-08 09:30 | Emergency (ER) | payer MEDICARE, MEDICAID ==
[~2020-07-08] VITALS: Ht 152.4 cm; Wt 67.7 kg
[2020-07-08] MEDS ORDERED: traMADol 50MG tablet PO ONE (11:10)
[2020-07-08 12:26] VITALS: BP 145/83
== END 2020-07-08 12:28 | disposition home or self-care (01) ==
LOC: ER 09:31
DX: M54.5 Low back pain (principal); J45.909 Unspecified asthma, uncomplicated; J44.9 Chronic obstructive pulmonary disease, unspecified; G89.29 Other chronic pain; F31.9 Bipolar disorder, unspecified; F20.9 Schizophrenia, unspecified; F12.90 Cannabis use, unspecified, uncomplicated; Z86.69 Personal history of other diseases of the nervous system and sense organs; Z98.890 Other specified postprocedural states; Z56.0 Unemployment, unspecified; Z79.82 Long term (current) use of aspirin; Z88.5 Allergy status to narcotic agent; Z88.6 Allergy status to analgesic agent; Z79.899 Other long term (current) drug therapy
CPT/HCPCS: 72131; 72192; 99285

== ENCOUNTER 2020-07-12 15:34 | Emergency (ER) | payer MEDICARE, MEDICAID ==
[~2020-07-12] VITALS: Ht 152.4 cm; Wt 67.7 kg
[2020-07-12] MEDS ORDERED: LORA-269 PO (15:59)
[2020-07-12] MEDS ORDERED: CLOZ50TA PO (16:38)
[2020-07-12] MEDS ORDERED: GABA-530 PO (16:41)
[2020-07-12] MEDS ORDERED: BENZ0.5T4 PO (16:45)
[2020-07-12 16:47] LABS: BASOPHILS # (AUTO) 0.1 X10'3 (0-0.2); BASOPHILS % (AUTO) 1.2 % (0-1); EOSINOPHILS # (AUTO) 0.3 X10'3 (0-0.9); EOSINOPHILS % (AUTO) 3.1 % (0-6); HEMATOCRIT 37.7 % (35.0-45.0); HEMOGLOBIN 12.6 g/dl (12.0-16.0); LYMPHOCYTES # (AUTO) 1.9 X10'3 (1.1-4.8); LYMPHOCYTES % (AUTO) 22.5 % (21-51); MEAN CORPUSCULAR HEMOGLOBIN 32.4 PG (27.0-31.0); MEAN CORPUSCULAR HGB CONC 33.4 g/dL (33.0-36.5); MEAN CORPUSCULAR VOLUME 97.1 FL (78-98); MEAN PLATELET VOLUME 8.1 FL (7.4-10.4); MONOCYTES # (AUTO) 0.7 X10'3 (0-0.9); MONOCYTES % (AUTO) 8.3 % (2-12); NEUTROPHILS # (AUTO) 5.5 X10'3 (1.8-7.7); NEUTROPHILS % (AUTO) 64.9 % (42-75); PLATELET COUNT 288 X10'3 (140-440); RED BLOOD COUNT 3.88 X10'6 (4.20-5.60); RED CELL DISTRIBUTION WIDTH 13.8 % (11.5-14.5); WHITE BLOOD COUNT 8.4 X10'3 (4.5-11.0)
[2020-07-12] MEDS ORDERED: MIRT15TA PO (16:47)
[2020-07-12] MEDS ORDERED: BUPR100T13 PO ×2 (16:49→16:59)
[2020-07-12] MEDS ORDERED: PANT-47 PO (16:49)
[2020-07-12] MEDS ORDERED: CARV-50 PO (16:50)
[2020-07-12] MEDS ORDERED: CLOZ100T21 PO (16:51)
[2020-07-12] MEDS ORDERED: TRAM50TA2 PO (16:53)
[2020-07-12 17:02] LABS: ALANINE AMINOTRANSFERASE 22 U/L (12-78); ALBUMIN/GLOBULIN RATIO 0.8 (1.1-1.5); ALKALINE PHOSPHATASE 139 IU/L (46-116); ANION GAP 5 (8-16); ASPARTATE AMINO TRANSFERASE 14 U/L (10-37); BILIRUBIN,TOTAL 0.2 MG/DL (0.1-1.0); BLOOD UREA NITROGEN 20 MG/DL (7-18); CALCIUM 9.2 MG/DL (8.5-10.1); CHLORIDE 109 MMOL/L (99-107); CREATININE 1.11 MG/DL (0.40-0.90); ETHANOL < 0.010 GM/DL (0.0-0.010); GLUCOSE 102 MG/DL (70-104); POTASSIUM 4.1 MMOL/L (3.5-5.1); SODIUM 143 MMOL/L (135-145); TOTAL CARBON DIOXIDE 28.9 MMOL/L (24-32); TOTAL PROTEIN 6.6 G/DL (6.4-8.2); eGFR 49 ML/MIN
[2020-07-12] MEDS ORDERED: benztropine 1mg tablet PO PRN (17:20)
[2020-07-12 18:00] LABS: CLARITY,URINE CLEAR (Clear); COLOR,URINE YELLOW (Yellow); GLUCOSE, URINE NEGATIVE (Neg); KETONES,URINE NEGATIVE (Neg); LEUKOCYTE ESTERASE ,URINE NEGATIVE (Neg); NITRITES, URINE NEGATIVE (Neg); OCCULT BLOOD,URINE NEGATIVE (Neg); PROTEIN,URINE NEGATIVE (Neg)
[2020-07-12 18:02] LABS: UA COLLECTION TYPE CLN CATCH MIDSTREAM
[2020-07-12 18:13] LABS: URINE AMPHETAMINE SCREEN NEGATIVE (Neg); URINE BARBITUATE SCREEN NEGATIVE (Neg); URINE BENZODIAZEPINES SCREEN NEGATIVE (Neg); URINE CANNABINOID SCREEN NEGATIVE (Neg); URINE COCAINE SCREEN NEGATIVE (Neg); URINE METHADONE SCREEN NEGATIVE (Neg); URINE OPIATE SCREEN NEGATIVE (Neg); URINE PHENCYCLIDINE SCREEN NEGATIVE (Neg)
--- NOTE | 2020-07-12 19:00 | NUR ---
Pt requesting quietly, respirations normal, no s/s of distress.
--- NOTE | 2020-07-12 19:15 | NUR ---
Pt requested more food. [place] given.
--- NOTE | 2020-07-12 19:29 | NUR ---
Pt up to restroom.
[2020-07-12] MEDS: traMADol 50MG tablet PO PRN (19:53)
[2020-07-12] MEDS: LORazepam 1 MG tablet PO PRN (19:53)
[2020-07-12] MEDS: carvedilol 6.25mg tablet PO SCH (19:53)
[2020-07-12] MEDS: clozapine 25mg tablet PO SCH (19:54)
[2020-07-12] MEDS: clozapine 100mg tablet PO SCH (19:54)
[2020-07-12] MEDS: mirtazapine 15mg tablet PO SCH (20:17)
[2020-07-12] MEDS ORDERED: temazepam 15mg capsule PO PRN (21:00)
--- NOTE | 2020-07-12 21:29 | NUR ---
Pt requesting quietly, respirations normal, no s/s of distress.
--- NOTE | 2020-07-12 23:00 | NUR ---
Pt requesting quietly, respirations normal, no s/s of distress.
--- NOTE | 2020-07-13 00:03 | NUR ---
Pt requesting quietly, respirations normal, no s/s of distress.
--- NOTE | 2020-07-13 01:00 | NUR ---
Pt requesting quietly, respirations normal, no s/s of distress.
--- NOTE | 2020-07-13 02:00 | NUR ---
Pt requesting quietly, respirations normal, no s/s of distress.
--- NOTE | 2020-07-13 03:00 | NUR ---
Pt requesting quietly, respirations normal, no s/s of distress.
--- NOTE | 2020-07-13 04:01 | NUR ---
Pt requesting quietly, respirations normal, no s/s of distress.
--- NOTE | 2020-07-13 05:00 | NUR ---
Pt up to the restroom.
--- NOTE | 2020-07-13 07:59 | NUR ---
PT GIVEN BREAKFAST TRAY BUT IS STILL RESTING.
--- NOTE | 2020-07-13 09:02 | NUR ---
PT CONTINUES TO SLEEP. DELAY IN GIVING MORNING MEDICATIONS DUE TO CLOZARIL NOT IN OMNICELL AND NOW WAITING FOR PHARMACY TO BRING IT. SINCE PT IS SLEEPING WILL WAKE HER ONCE TO GIVE ALL THE MEDICINE AT SAME TIME.
[2020-07-13] MEDS: pantoprazole 40mg Tablet.DR PO SCH (09:21)
[2020-07-13] MEDS: buPROPion 100mg tablet PO SCH ×2 (09:21→12:49)
[2020-07-13] MEDS: gabapentin 300mg capsule PO SCH ×3 (09:21→16:14)
[2020-07-13] MEDS: carvedilol 6.25mg tablet PO SCH ×2 (09:21→20:39)
[2020-07-13] MEDS: clozapine 25mg tablet PO SCH ×2 (09:22→20:39)
--- NOTE | 2020-07-13 10:00 | NUR ---
PT SLEEPING, NO S/S DISTRESS.
[2020-07-13] MEDS: LORazepam 1 MG tablet PO PRN (12:49)
--- NOTE | 2020-07-13 12:51 | NUR ---
PT ASKING FOR SOMETHING FOR ANXIETY ADMIN ATIVAN ORDERED PRN. PT STATES SHE IS NOT SUICIDAL ANYMORE AND WOULD LIKE TO TALK TO SOMEONE ABOUT GOING BACK TO WHERE SHE WAS ALTHOUGH SHE IS STILL HAVING SOME DEPRESSION.
--- NOTE | 2020-07-13 13:30 | NUR ---
PT GIVEN LUNCH TRAY, IS AWAKE AND EATING.
[2020-07-13] MEDS: traMADol 50MG tablet PO PRN (14:03)
--- NOTE | 2020-07-13 14:06 | NUR ---
PT FEELING ANXIOUS, ADMIN ULTRAM AND COGENTIN ORDERED.
--- NOTE | 2020-07-13 14:55 | NUR ---
PT PLAYING A GAME WITH 2 OTHER PTS. TECH WATCHING.
--- NOTE | 2020-07-13 15:32 | NUR ---
PT HAS A CBC WITH DIF ORDERED FOR JUL 19, 2020.
--- NOTE | 2020-07-13 16:53 | NUR ---
PT CONTINUES TO PLAY BOARD GAMES WITH ANOTHER PT.
--- NOTE | 2020-07-13 17:25 | NUR ---
PT FINISHED WITH BOARD GAMES AND ASKS TO USE THE PHONE AND IS BACK IN BED.
--- NOTE | 2020-07-13 17:49 | NUR ---
PT GIVEN JELLO AND CRACKERS REQUESTED FOR A SNACK.
--- NOTE | 2020-07-13 19:12 | NUR ---
Patient is sleeping quietly on her right side in bed. In view from nursing station.
--- NOTE | 2020-07-13 20:02 | NUR ---
Patient is resting quietly in bed, no distress.
[2020-07-13] MEDS: mirtazapine 15mg tablet PO SCH (20:38)
[2020-07-13] MEDS: clozapine 100mg tablet PO SCH (20:39)
--- NOTE | 2020-07-13 21:05 | NUR ---
Patient sleeping quietly on her left side.
--- NOTE | 2020-07-13 22:04 | NUR ---
Patient is up to bathroom. Normal gait, no complaints.
--- NOTE | 2020-07-13 23:43 | NUR ---
Patient sleeping low fowlers position in bed.
--- NOTE | 2020-07-14 01:03 | NUR ---
Patient in no distress, sleeping quietly.
--- NOTE | 2020-07-14 02:13 | NUR ---
Patient sleeping on her left side. No distress. In view from nursing station. Patient self repositions in bed.
--- NOTE | 2020-07-14 04:00 | NUR ---
Patient sleeping on her right side. In view from nursing station.
--- NOTE | 2020-07-14 05:01 | NUR ---
Patient sleeping quietly on her right side.
[2020-07-14] MEDS: traMADol 50MG tablet PO PRN (05:42)
[2020-07-14 05:48] VITALS: BP 124/60
--- NOTE | 2020-07-14 06:30 | NUR ---
ASSUMED CARE, SLEEPING.
--- NOTE | 2020-07-14 07:30 | NUR ---
SLEEPING, NO S/SX OF DISTRESS NOTED.
[2020-07-14] MEDS: gabapentin 300mg capsule PO SCH ×2 (08:00→08:23)
[2020-07-14] MEDS: buPROPion 100mg tablet PO SCH ×2 (08:20→13:09)
[2020-07-14] MEDS: carvedilol 6.25mg tablet PO SCH (08:20)
[2020-07-14] MEDS: pantoprazole 40mg Tablet.DR PO SCH (08:20)
[2020-07-14] MEDS: clozapine 25mg tablet PO SCH (08:21)
--- NOTE | 2020-07-14 08:30 | NUR ---
PATIENT AWOKE FOR BREAKFAST, REFUSED BREAKFAST CALMLY.
--- NOTE | 2020-07-14 09:30 | NUR ---
PATIENT AWAKE ON/OFF. RESTING IN BED CURRENTLY WITH EYES CLOSED.
--- NOTE | 2020-07-14 10:19 | NUR ---
BREAKING PRIMARY RN, PT IS LAYING ON HER RIGHT SIDE, ROCKING BACK AND FORTH, WAS JUST UP TO THE BATHROOM, NO NEEDS AT THIS TIME
[2020-07-14] MEDS: LORazepam 1 MG tablet PO PRN (10:50)
--- NOTE | 2020-07-14 11:41 | NUR ---
CURRENTLY PLAYING A GAME WITH PATIENT IN BED 20, TOLERATING WELL.
--- NOTE | 2020-07-14 12:15 | NUR ---
Patient was found in lobby by security. Patient has slipped out behind the screen between 12:12-12:15 while this nurse was on the phone assisting another patient. Asked patient if she was trying to escape and she states she was "looking for my dog". Patient apologized and this nurse states we just need to keep you safe. Reassured her that her dog is safe with her son.
--- NOTE | 2020-07-14 12:53 | NUR ---
breaking primary nurse at this time ,pt sitting on side of the bed ,eating her lunch ,will cont to monitor.
--- NOTE | 2020-07-14 13:03 | NUR ---
Patient just finished eating, resting back in bed. 1230 medication due to be given.
--- NOTE | 2020-07-14 14:58 | NUR ---
Patient resting with eyes closed, no complaints noted.
--- NOTE | 2020-07-14 16:24 | NUR ---
Patient d/c'd from ED overflow, transferred to [facility] at this time without event, VSS, Eager to be transferred. Pleasant and cooperative. Belongings returned to patient.
[2020-07-15] MEDS ORDERED: LISI1TAB32 PO (14:10)
[2020-07-15] MEDS ORDERED: QUET200T30 PO (14:10)
[2020-07-15] MEDS ORDERED: ATOR40TA71 PO (14:10)
[2020-07-15] MEDS ORDERED: TIOT4MIS3 PO (14:10)
[2020-07-15] MEDS ORDERED: OLAN10TA19 PO (14:10)
[2020-07-15] MEDS ORDERED: ALB0.5UD IH (15:06)
[2020-07-17] MEDS ORDERED: BUPR-72 PO (13:01)
== END 2020-07-14 16:24 | disposition home or self-care (01) ==
LOC: ER 15:35
DX: R45.851 Suicidal ideations (principal); J44.9 Chronic obstructive pulmonary disease, unspecified; G89.29 Other chronic pain; F31.9 Bipolar disorder, unspecified; F20.9 Schizophrenia, unspecified; F12.90 Cannabis use, unspecified, uncomplicated; Z86.69 Personal history of other diseases of the nervous system and sense organs; Z98.890 Other specified postprocedural states; Z56.0 Unemployment, unspecified; Z79.82 Long term (current) use of aspirin; Z88.5 Allergy status to narcotic agent; Z88.6 Allergy status to analgesic agent; Z79.899 Other long term (current) drug therapy
CPT/HCPCS: 36415; 80053; 80305; 80320; 81003; 85025; 99285

== ENCOUNTER 2020-07-23 15:14 | Emergency (ER) | payer MEDICARE, MEDICAID ==
[~2020-07-23] VITALS: Ht 157.5 cm; Wt 68.9 kg
[~2020-07-23 15:14] MED LIST changes: +ALB0.5UD IH; +ATOR40TA71 PO; +BENZ0.5T4 PO; -BENZ1TAB7 PO; +BUPR-72 PO; -BUPR100T7 PO; -BUPR200T3 PO; +CARV-50 PO; -CARV6.253 PO; -CLOZ100T13 PO; +CLOZ100T21 PO; -CLOZ25TA12 PO; +CLOZ50TA PO; -GABA300C PO; +LISI1TAB32 PO; +LORA-269 PO; +MIRT15TA PO; -MIRT15TA8 PO; +OLAN10TA19 PO; +QUET200T30 PO; +TIOT4MIS3 PO; +TRAM50TA2 PO
[2020-07-23 16:04] LABS: BASOPHILS # (AUTO) 0.1 X10'3 (0-0.2); BASOPHILS % (AUTO) 1.1 % (0-1); EOSINOPHILS # (AUTO) 0.2 X10'3 (0-0.9); EOSINOPHILS % (AUTO) 3.8 % (0-6); HEMATOCRIT 37.2 % (35.0-45.0); HEMOGLOBIN 12.2 g/dl (12.0-16.0); LYMPHOCYTES # (AUTO) 1.6 X10'3 (1.1-4.8); LYMPHOCYTES % (AUTO) 26.5 % (21-51); MEAN CORPUSCULAR HEMOGLOBIN 31.9 PG (27.0-31.0); MEAN CORPUSCULAR HGB CONC 32.9 g/dL (33.0-36.5); MEAN CORPUSCULAR VOLUME 96.9 FL (78-98); MEAN PLATELET VOLUME 8.4 FL (7.4-10.4); MONOCYTES # (AUTO) 0.6 X10'3 (0-0.9); NEUTROPHILS # (AUTO) 3.5 X10'3 (1.8-7.7); NEUTROPHILS % (AUTO) 58.6 % (42-75); PLATELET COUNT 281 X10'3 (140-440); RED BLOOD COUNT 3.84 X10'6 (4.20-5.60); RED CELL DISTRIBUTION WIDTH 13.6 % (11.5-14.5)
[2020-07-23 16:05] LABS: CLARITY,URINE SLIGHTLY CLOUDY (Clear); COLOR,URINE YELLOW (Yellow); GLUCOSE, URINE NEGATIVE (Neg); KETONES,URINE NEGATIVE (Neg); LEUKOCYTE ESTERASE ,URINE NEGATIVE (Neg); NITRITES, URINE NEGATIVE (Neg); OCCULT BLOOD,URINE NEGATIVE (Neg); PROTEIN,URINE NEGATIVE (Neg); UROBILINOGEN,URINE 0.2 E.U/dL (0.2-1.0)
[2020-07-23 16:09] LABS: UA COLLECTION TYPE STRAIGHT CATH
[2020-07-23 16:13] LABS: ALANINE AMINOTRANSFERASE 22 U/L (12-78); ALBUMIN 3.2 G/DL (3.4-5.0); ALBUMIN/GLOBULIN RATIO 0.9 (1.1-1.5); ALKALINE PHOSPHATASE 135 IU/L (46-116); ANION GAP 6 (8-16); ASPARTATE AMINO TRANSFERASE 16 U/L (10-37); BILIRUBIN,TOTAL 0.5 MG/DL (0.1-1.0); BLOOD UREA NITROGEN 45 MG/DL (7-18); BUN/CREATININE RATIO 23.8 (6.6-38.0); CALCIUM 8.7 MG/DL (8.5-10.1); CHLORIDE 108 MMOL/L (99-107); CREATININE 1.89 MG/DL (0.40-0.90); GLUCOSE 79 MG/DL (70-104); POTASSIUM 4.9 MMOL/L (3.5-5.1); SODIUM 141 MMOL/L (135-145); TOTAL CARBON DIOXIDE 27.4 MMOL/L (24-32); TOTAL PROTEIN 6.7 G/DL (6.4-8.2); eGFR 27 ML/MIN
[2020-07-23 16:14] LABS: ETHANOL < 0.010 GM/DL (0.0-0.010)
[2020-07-23 16:15] LABS: BACTERIA,URINE 1+ /HPF (Neg); SQUAMOUS EPITHELIAL CELL,UR MODERATE /LPF (FEW); TRANSITIONAL EPI CELLS,URINE MANY /HPF
[2020-07-23 16:16] LABS: RBC,URINE 0-2 /HPF (0-2); WBC,URINE 0-4 /HPF (0-4)
[2020-07-23] MEDS ORDERED: normal saline 1000ML IV soln IVB ONE (16:20)
[2020-07-23 16:24] LABS: URINE AMPHETAMINE SCREEN NEGATIVE (Neg); URINE BARBITUATE SCREEN NEGATIVE (Neg); URINE BENZODIAZEPINES SCREEN POSITIVE (Neg); URINE CANNABINOID SCREEN POSITIVE (Neg); URINE COCAINE SCREEN NEGATIVE (Neg); URINE METHADONE SCREEN NEGATIVE (Neg); URINE OPIATE SCREEN NEGATIVE (Neg); URINE PHENCYCLIDINE SCREEN NEGATIVE (Neg)
--- NOTE | 2020-07-23 17:12 | NUR ---
called son layne and he will be here to shrimp picker mother in 30 min
--- NOTE | 2020-07-23 17:24 | NUR ---
Pt assisted to sit up more in the bed, given a cheese snack, yogurt and apple juice for a snack prior to discharge. Pt's IV fluid is close to completing infusion.
[2020-07-23 18:33] VITALS: BP 134/74
[2020-07-26] MEDS ORDERED: CLON0.1T PO (19:24)
[2020-07-26] MEDS ORDERED: CLOZ100T23 PO (19:24)
[2020-07-26] MEDS ORDERED: QUET300T2 PO (19:24)
[2020-07-26] MEDS ORDERED: GABA300C PO (19:24)
[2020-07-28] MEDS ORDERED: BUPR100T5 PO (15:10)
== END 2020-07-23 18:03 | disposition home or self-care (01) ==
LOC: ER 15:14
DX: E86.0 Dehydration (principal); N28.9 Disorder of kidney and ureter, unspecified; R53.83 Other fatigue; J44.9 Chronic obstructive pulmonary disease, unspecified; G89.29 Other chronic pain; F31.9 Bipolar disorder, unspecified; F20.9 Schizophrenia, unspecified; F12.90 Cannabis use, unspecified, uncomplicated; Z86.69 Personal history of other diseases of the nervous system and sense organs; Z98.890 Other specified postprocedural states; Z56.0 Unemployment, unspecified; Z88.5 Allergy status to narcotic agent; Z88.6 Allergy status to analgesic agent; Z88.8 Allergy status to other drugs, medicaments and biological substances; Z79.899 Other long term (current) drug therapy
CPT/HCPCS: 36415; 80053; 80305; 80320; 81001; 82948; 85025; 96360; 99284; J7030

== ENCOUNTER 2021-08-12 21:45 | Emergency (ER) | payer MEDICARE, MEDICAID ==
[~2021-08-12] VITALS: Ht 152.4 cm; Wt 65.0 kg
[~2021-08-12 21:45] MED LIST changes: -ALB0.5UD IH; -ATOR40TA71 PO; +ATOR40TA72 PO; -BENZ0.5T4 PO; -CARV-50 PO; -CLOZ100T21 PO; -CLOZ50TA PO; +CYCL-1 PO; -GABA-530 PO; +GABA300C PO; +LISI10TA27 PO; -LISI1TAB32 PO; +LORA-268 PO; -LORA-269 PO; +MIRT-116 PO; -MIRT15TA PO; +MONT10TA32 PO; -OLAN10TA19 PO; -PANT-47 PO; -QUET200T30 PO; +QUET300T2 PO; -TEMA30CA PO; -TIOT4MIS3 PO; -TRAM50TA2 PO
[2021-08-13 01:29] VITALS: BP 137/85
[2021-08-13] MEDS ORDERED: acetaminophen 325mg tablet PO ONE (01:45)
== END 2021-08-13 03:01 | disposition home or self-care (01) ==
LOC: ER 21:46
DX: M79.671 Pain in right foot (principal); M79.89 Other specified soft tissue disorders; J44.9 Chronic obstructive pulmonary disease, unspecified; G89.29 Other chronic pain; F31.9 Bipolar disorder, unspecified; F20.9 Schizophrenia, unspecified; F12.90 Cannabis use, unspecified, uncomplicated; Z86.69 Personal history of other diseases of the nervous system and sense organs; Z98.890 Other specified postprocedural states; Z56.0 Unemployment, unspecified; Z88.8 Allergy status to other drugs, medicaments and biological substances; Z88.5 Allergy status to narcotic agent; Z88.6 Allergy status to analgesic agent; Z79.899 Other long term (current) drug therapy
CPT/HCPCS: 73630; 99284

== ENCOUNTER 2022-02-23 16:13 | Inpatient (IN) | payer MEDICARE, MEDICAID ==
[~2022-02-23] VITALS: Ht 152.4 cm; Wt 74.5 kg
[~2022-02-23 16:13] MED LIST changes: +MONT-40 PO; -MONT10TA32 PO
[2022-02-23 19:05] LABS: BASOPHILS # (AUTO) 0.1 X10'3 (0-0.2); BASOPHILS % (AUTO) 0.5 % (0-1); EOSINOPHILS # (AUTO) 0.1 X10'3 (0-0.9); EOSINOPHILS % (AUTO) 0.4 % (0-6); HEMATOCRIT 32.4 % (35.0-45.0); HEMOGLOBIN 10.6 g/dl (12.0-16.0); LYMPHOCYTES # (AUTO) 1.4 X10'3 (1.1-4.8); LYMPHOCYTES % (AUTO) 7.5 % (21-51); MEAN CORPUSCULAR HEMOGLOBIN 30.6 PG (27.0-31.0); MEAN CORPUSCULAR HGB CONC 32.8 g/dL (33.0-36.5); MEAN CORPUSCULAR VOLUME 93.4 FL (78-98); MEAN PLATELET VOLUME 8.2 FL (7.4-10.4); MONOCYTES # (AUTO) 1.7 X10'3 (0-0.9); MONOCYTES % (AUTO) 9.5 % (2-12); NEUTROPHILS # (AUTO) 14.7 X10'3 (1.8-7.7); NEUTROPHILS % (AUTO) 82.1 % (42-75); PLATELET COUNT 395 X10'3 (140-440); RED BLOOD COUNT 3.47 X10'6 (4.20-5.60); WHITE BLOOD COUNT 17.9 X10'3 (4.5-11.0)
[2022-02-23 19:16] LABS: ALANINE AMINOTRANSFERASE 84 U/L (12-78); ALBUMIN 2.8 G/DL (3.4-5.0); ALBUMIN/GLOBULIN RATIO 0.5 (1.1-1.5); ALKALINE PHOSPHATASE 183 IU/L (46-116); ANION GAP 11 (8-16); ASPARTATE AMINO TRANSFERASE 52 U/L (10-37); BILIRUBIN,TOTAL 0.4 MG/DL (0.1-1.0); BLOOD UREA NITROGEN 21 MG/DL (7-18); CALCIUM 9.5 MG/DL (8.5-10.1); CHLORIDE 101 MMOL/L (99-107); GLUCOSE 115 MG/DL (70-104); SODIUM 138 MMOL/L (135-145); TOTAL CARBON DIOXIDE 26.5 MMOL/L (24-32); TOTAL PROTEIN 8.1 G/DL (6.4-8.2); eGFR 37 ML/MIN
[2022-02-23] MEDS ORDERED: normal saline 1000ml 1,000 ML IV ONE ×2 (19:25→19:55)
[2022-02-23] MEDS ORDERED: normal saline 1000ML IV soln IVB ONE (19:55)
[2022-02-23 20:52] LABS: D-DIMER 1.04 MG/L FEU (0-0.50)
[2022-02-23] MEDS ORDERED: acetaminophen 325mg tablet PO ONE (20:55)
[2022-02-23] MEDS ORDERED: temazepam 15mg capsule PO PRN (21:00)
[2022-02-23 21:38] LABS: CLARITY,URINE SLIGHTLY CLOUDY (Clear); COLOR,URINE YELLOW (Yellow); GLUCOSE, URINE NEGATIVE (Neg); KETONES,URINE NEGATIVE (Neg); LEUKOCYTE ESTERASE ,URINE MODERATE (Neg); NITRITES, URINE NEGATIVE (Neg); OCCULT BLOOD,URINE NEGATIVE (Neg); PH,URINE 5.5 (4.8-8.0); PROTEIN,URINE NEGATIVE (Neg); UROBILINOGEN,URINE 0.2 E.U/dL (0.2-1.0)
[2022-02-23 21:41] LABS: UA COLLECTION TYPE CLN CATCH MIDSTREAM
[2022-02-23 21:49] LABS: URINE AMPHETAMINE SCREEN NEGATIVE (Neg); URINE BARBITUATE SCREEN NEGATIVE (Neg); URINE BENZODIAZEPINES SCREEN NEGATIVE (Neg); URINE CANNABINOID SCREEN POSITIVE (Neg); URINE COCAINE SCREEN NEGATIVE (Neg); URINE METHADONE SCREEN NEGATIVE (Neg); URINE OPIATE SCREEN NEGATIVE (Neg); URINE PHENCYCLIDINE SCREEN NEGATIVE (Neg)
[2022-02-23 21:50] LABS: BACTERIA,URINE 3+ /HPF (Neg); MUCUS STRANDS FEW /LPF (Neg); SQUAMOUS EPITHELIAL CELL,UR MODERATE /LPF (FEW); TRANSITIONAL EPI CELLS,URINE FEW /HPF; YEAST FEW /HPF (NEGATIVE)
[2022-02-23] MEDS ORDERED: azithromycin/NS 500mg/250ml 250 ML IV ONE (22:05)
[2022-02-23] MEDS ORDERED: cefTRIAXone 1g/NS 100ml IVPB 100 ML IV ONE (22:05)
[2022-02-23] MEDS ORDERED: ondansetron 4mg rapidly disintigrating tab PO PRN (22:55)
[2022-02-23] MEDS ORDERED: mag hydrox/Alum hydrox/simeth 30ml oral suspension PO PRN (22:55)
[2022-02-23] MEDS: normal saline 1000ml 1,000 ML IV SCH (22:55)
[2022-02-23] MEDS ORDERED: ondansetron/PF 4mg/2ml inj IV PRN (22:55)
[2022-02-23] MEDS ORDERED: diphenhydrAMINE 50 mg/ml inj IV PRN (22:55)
[2022-02-23] MEDS ORDERED: ipratropium/albuterol 3ml nebule NEB PRN (22:55)
[2022-02-23] MEDS ORDERED: bisacodyl 10mg suppository rectal RC PRN (22:55)
[2022-02-23] MEDS ORDERED: diphenhydrAMINE 25mg capsule PO PRN (22:55)
[2022-02-23] MEDS ORDERED: acetaminophen 325mg tablet PO PRN ×2 (22:55)
[2022-02-23] MEDS ORDERED: magnesium hydroxide 30ml (MOM) UD suspension PO PRN (22:55)
[2022-02-23] MEDS ORDERED: acetaminophen 650mg rectal suppository RC PRN (22:55)
[2022-02-23 23:13] LABS: HEMOGLOBIN A1C 5.9 % (4.5-6.2)
[2022-02-23 23:19] LABS: MAGNESIUM 2.6 MG/DL (1.5-2.4); PHOSPHORUS 3.8 MG/DL (2.3-4.5)
[2022-02-23 23:20] LABS: APTT 24 SECONDS (22-32)
[2022-02-24 01:04] LABS: BASOPHILS % (AUTO) 0.3 % (0-1); EOSINOPHILS % (AUTO) 0.3 % (0-6); HEMATOCRIT 30.2 % (35.0-45.0); HEMOGLOBIN 10.4 g/dl (12.0-16.0); LYMPHOCYTES # (AUTO) 1.4 X10'3 (1.1-4.8); LYMPHOCYTES % (AUTO) 9.1 % (21-51); MEAN CORPUSCULAR HEMOGLOBIN 32.6 PG (27.0-31.0); MEAN CORPUSCULAR HGB CONC 34.6 g/dL (33.0-36.5); MEAN CORPUSCULAR VOLUME 94.3 FL (78-98); MONOCYTES # (AUTO) 1.4 X10'3 (0-0.9); MONOCYTES % (AUTO) 9.1 % (2-12); NEUTROPHILS # (AUTO) 12.2 X10'3 (1.8-7.7); NEUTROPHILS % (AUTO) 81.2 % (42-75); PLATELET COUNT 335 X10'3 (140-440); WHITE BLOOD COUNT 15.1 X10'3 (4.5-11.0)
[2022-02-24 01:18] LABS: ALANINE AMINOTRANSFERASE 65 U/L (12-78); ALBUMIN 2.2 G/DL (3.4-5.0); ALBUMIN/GLOBULIN RATIO 0.5 (1.1-1.5); ALKALINE PHOSPHATASE 148 IU/L (46-116); ANION GAP 10 (8-16); ASPARTATE AMINO TRANSFERASE 39 U/L (10-37); BILIRUBIN,TOTAL 0.3 MG/DL (0.1-1.0); BLOOD UREA NITROGEN 17 MG/DL (7-18); BUN/CREATININE RATIO 13.4 (6.6-38.0); CALCIUM 8.5 MG/DL (8.5-10.1); CHLORIDE 104 MMOL/L (99-107); CHOL/HDL RATIO 8.6 (0.00-4.99); CHOLESTEROL 86 MG/DL (0-200); CREATININE 1.27 MG/DL (0.40-0.90); GLUCOSE 132 MG/DL (70-104); HDL CHOLESTEROL 10 MG/DL (35-60); LDL CHOLESTEROL 43 MG/DL (50-100); POTASSIUM 3.8 MMOL/L (3.5-5.1); SODIUM 139 MMOL/L (135-145); TOTAL CARBON DIOXIDE 25.5 MMOL/L (24-32); TOTAL PROTEIN 6.7 G/DL (6.4-8.2); TRIGLYCERIDES 152 MG/DL (20-135); eGFR 42 ML/MIN
[2022-02-24] MEDS ORDERED: LISI10TA27 PO (01:40)
[2022-02-24] MEDS ORDERED: QUET400T13 PO (01:40)
[2022-02-24] MEDS ORDERED: PROP10TA10 PO (01:40)
[2022-02-24] MEDS ORDERED: QUET25TA36 PO (01:40)
--- NOTE | 2022-02-24 02:56 | NUR ---
RN ON BREAK. PT DESATTED TO 86% WHILE SLEEPING. SHE STATES SHE HAS COPD BUT IS UNAWARE OF WHAT HER NORMAL OXYGEN SATURATION IS. SHE DOES NOT USE OXYGEN AT HOME. SHE ALSO NOTED HAVING SLEEP APNEA DIAGNOSIS BUT THAT SHE DOES NOT USE A CPAP AT HOME. PLACED PT ON 2L OF O2 NC.
[2022-02-24 05:58] VITALS: BP 132/75
--- NOTE | 2022-02-24 06:26 | NUR ---
Patient in room ORTHO 4012. I have received report from Gem RN and had the opportunity to ask questions and assume patient care.
[2022-02-24] MEDS: methylPREDNISolone sod succ 125mg/2ml vial IV SCH ×2 (07:39→20:34)
[2022-02-24] MEDS: cefTRIAXone 1g/NS 100ml IVPB 100 ML IV SCH (07:39)
[2022-02-24] MEDS: docusate sod 100mg capsule PO SCH ×2 (08:00→20:00)
[2022-02-24] MEDS ORDERED: buPROPion SR 150mg tablet PO SCH (08:00)
[2022-02-24] MEDS: pantoprazole 40mg Tablet.DR PO SCH (08:16)
[2022-02-24] MEDS: atorvastatin 20mg tablet PO SCH (08:16)
[2022-02-24] MEDS: gabapentin 300mg capsule PO SCH ×3 (08:16→23:41)
[2022-02-24] MEDS: QUEtiapine 25mg tablet PO SCH ×2 (08:17→12:20)
[2022-02-24] MEDS: heparin, porcine 5000 units/ml vial SQ SCH ×2 (08:17→20:40)
[2022-02-24] MEDS: normal saline 1000ml 1,000 ML IV SCH ×3 (08:19→23:44)
[2022-02-24] MEDS: azithromycin/NS 500mg/250ml 250 ML IV SCH (09:00)
[2022-02-24] MEDS: buPROPion SR 150mg tablet PO SCH ×2 (09:59→20:39)
[2022-02-24 10:00] VITALS: BP 121/72
--- NOTE | 2022-02-24 18:17 | NUR ---
Problems reprioritized. Patient report given, questions answered & plan of care reviewed with Em Strickland RN.
--- NOTE | 2022-02-24 18:30 | NUR ---
Patient in room ORTHO 4012. I have received report from GERRY GOLDEN and had the opportunity to ask questions and assume patient care.
[2022-02-24 19:00] VITALS: BP_SYST 127; BP_SYST 135; BP_DIAS 69; BP_DIAS 70
[2022-02-24] MEDS ORDERED: albuterol 2.5 MG/3 ML nebule NEB PRN (19:25)
[2022-02-24] MEDS: cyclobenzaprine 10mg tablet PO SCH (20:38)
[2022-02-24] MEDS: quetiapine 100mg tablet PO SCH (20:38)
[2022-02-24] MEDS: mirtazapine 15mg tablet PO SCH (20:39)
[2022-02-24 22:00] VITALS: BP 135/69
--- NOTE | 2022-02-24 23:30 | NUR ---
Patient report given, questions answered & plan of care reviewed with YUDI GOLDEN.
--- NOTE | 2022-02-24 23:33 | NUR ---
Patient in room ORTHO 4012. I have received report from MARQUES MOHAN,CHICO and had the opportunity to ask questions and assume patient care.
[2022-02-25 06:00] VITALS: BP 141/67
--- NOTE | 2022-02-25 06:23 | NUR ---
Patient in room ORTHO 4012. I have received report from Ness GOLDEN and had the opportunity to ask questions and assume patient care.
[2022-02-25 07:58] LABS: BASOPHILS % (AUTO) 0.2 % (0-1); EOSINOPHILS % (AUTO) 0 % (0-6); HEMOGLOBIN 9.7 g/dl (12.0-16.0); LYMPHOCYTES # (AUTO) 0.6 X10'3 (1.1-4.8); LYMPHOCYTES % (AUTO) 4.9 % (21-51); MEAN CORPUSCULAR HEMOGLOBIN 30.9 PG (27.0-31.0); MEAN CORPUSCULAR HGB CONC 32.5 g/dL (33.0-36.5); MEAN CORPUSCULAR VOLUME 95.2 FL (78-98); MEAN PLATELET VOLUME 8.4 FL (7.4-10.4); MONOCYTES # (AUTO) 0.6 X10'3 (0-0.9); NEUTROPHILS # (AUTO) 10.7 X10'3 (1.8-7.7); NEUTROPHILS % (AUTO) 89.9 % (42-75); PLATELET COUNT 354 X10'3 (140-440); RED BLOOD COUNT 3.15 X10'6 (4.20-5.60); RED CELL DISTRIBUTION WIDTH 14.5 % (11.5-14.5); WHITE BLOOD COUNT 11.9 X10'3 (4.5-11.0)
[2022-02-25] MEDS: docusate sod 100mg capsule PO SCH ×2 (08:00→20:00)
[2022-02-25 08:07] LABS: ALANINE AMINOTRANSFERASE 66 U/L (12-78); ALBUMIN 1.9 G/DL (3.4-5.0); ALBUMIN/GLOBULIN RATIO 0.5 (1.1-1.5); ALKALINE PHOSPHATASE 140 IU/L (46-116); ANION GAP 6 (8-16); ASPARTATE AMINO TRANSFERASE 38 U/L (10-37); BILIRUBIN,TOTAL 0.2 MG/DL (0.1-1.0); BLOOD UREA NITROGEN 21 MG/DL (7-18); CALCIUM 8.4 MG/DL (8.5-10.1); CHLORIDE 115 MMOL/L (99-107); GLUCOSE 167 MG/DL (70-104); POTASSIUM 4.1 MMOL/L (3.5-5.1); SODIUM 144 MMOL/L (135-145); TOTAL CARBON DIOXIDE 23.2 MMOL/L (24-32); TOTAL PROTEIN 6.1 G/DL (6.4-8.2); eGFR 55 ML/MIN
[2022-02-25] MEDS: QUEtiapine 25mg tablet PO SCH ×2 (08:28→12:12)
[2022-02-25] MEDS: cefTRIAXone 1g/NS 100ml IVPB 100 ML IV SCH (08:28)
[2022-02-25] MEDS: buPROPion SR 150mg tablet PO SCH ×2 (08:28→19:57)
[2022-02-25] MEDS: pantoprazole 40mg Tablet.DR PO SCH (08:28)
[2022-02-25] MEDS: atorvastatin 20mg tablet PO SCH (08:28)
[2022-02-25] MEDS: gabapentin 300mg capsule PO SCH ×3 (08:28→23:39)
[2022-02-25] MEDS: methylPREDNISolone sod succ 125mg/2ml vial IV SCH ×2 (08:29→19:59)
[2022-02-25] MEDS: heparin, porcine 5000 units/ml vial SQ SCH ×2 (08:29→19:58)
[2022-02-25] MEDS: azithromycin/NS 500mg/250ml 250 ML IV SCH (09:12)
[2022-02-25 10:15] VITALS: BP 131/66
[2022-02-25] MEDS: normal saline 1000ml 1,000 ML IV SCH ×2 (12:12→23:38)
[2022-02-25 18:00] VITALS: BP 140/75
--- NOTE | 2022-02-25 18:15 | NUR ---
Patient in room ORTHO 4012. I have received report from Heather GOLDEN and had the opportunity to ask questions and assume patient care.
[2022-02-25] MEDS: cyclobenzaprine 10mg tablet PO SCH (19:57)
[2022-02-25] MEDS: quetiapine 100mg tablet PO SCH (19:57)
[2022-02-25] MEDS: mirtazapine 15mg tablet PO SCH (19:58)
[2022-02-25] MEDS: HYDROcodone/acetaminophen 5mg/325mg tablet PO PRN (20:02)
[2022-02-25 22:00] VITALS: BP 133/55
--- NOTE | 2022-02-25 23:45 | NUR ---
I asked patient if she had used her IS yet and she said no, she is half asleep right now so will educate her on how to use IS once she is awake.
--- NOTE | 2022-02-26 03:51 | NUR ---
She had not voided all night so I bladder scanned her for 346ml's and she voided 350 ml's dark urine on bedside commode.
[2022-02-26] MEDS: HYDROcodone/acetaminophen 5mg/325mg tablet PO PRN (05:47)
[2022-02-26 06:00] VITALS: BP 146/77
--- NOTE | 2022-02-26 06:20 | NUR ---
Problems reprioritized. Patient report given, questions answered & plan of care reviewed with Sara GOLDEN.
[2022-02-26 06:25] LABS: BASOPHILS % (AUTO) 0.2 % (0-1); EOSINOPHILS % (AUTO) 0 % (0-6); HEMATOCRIT 29.3 % (35.0-45.0); HEMOGLOBIN 9.5 g/dl (12.0-16.0); LYMPHOCYTES # (AUTO) 1.1 X10'3 (1.1-4.8); LYMPHOCYTES % (AUTO) 6.6 % (21-51); MEAN CORPUSCULAR HEMOGLOBIN 30.7 PG (27.0-31.0); MEAN CORPUSCULAR HGB CONC 32.3 g/dL (33.0-36.5); MEAN CORPUSCULAR VOLUME 94.9 FL (78-98); MEAN PLATELET VOLUME 8.1 FL (7.4-10.4); MONOCYTES # (AUTO) 0.8 X10'3 (0-0.9); MONOCYTES % (AUTO) 4.7 % (2-12); NEUTROPHILS # (AUTO) 14.2 X10'3 (1.8-7.7); NEUTROPHILS % (AUTO) 88.5 % (42-75); PLATELET COUNT 405 X10'3 (140-440); RED BLOOD COUNT 3.08 X10'6 (4.20-5.60); RED CELL DISTRIBUTION WIDTH 14.5 % (11.5-14.5); WHITE BLOOD COUNT 16.1 X10'3 (4.5-11.0)
[2022-02-26 06:38] LABS: ALANINE AMINOTRANSFERASE 65 U/L (12-78); ALBUMIN 1.9 G/DL (3.4-5.0); ALBUMIN/GLOBULIN RATIO 0.5 (1.1-1.5); ALKALINE PHOSPHATASE 123 IU/L (46-116); ANION GAP 4 (8-16); ASPARTATE AMINO TRANSFERASE 30 U/L (10-37); BILIRUBIN,TOTAL 0.1 MG/DL (0.1-1.0); BLOOD UREA NITROGEN 24 MG/DL (7-18); BUN/CREATININE RATIO 22.4 (6.6-38.0); CALCIUM 8.5 MG/DL (8.5-10.1); CHLORIDE 116 MMOL/L (99-107); CREATININE 1.07 MG/DL (0.40-0.90); GLUCOSE 169 MG/DL (70-104); POTASSIUM 4.7 MMOL/L (3.5-5.1); SODIUM 145 MMOL/L (135-145); TOTAL CARBON DIOXIDE 24.6 MMOL/L (24-32); TOTAL PROTEIN 5.9 G/DL (6.4-8.2); eGFR 51 ML/MIN
[2022-02-26 06:40] LABS: % IRON SATURATION 54 % (11-46); IRON 76 UG/DL (49-151); TOTAL IRON BINDING CAPACITY 140 UG/DL (259-388)
--- NOTE | 2022-02-26 06:49 | NUR ---
Patient in room ORTHO 4012. I have received report from CHICO Cruz and had the opportunity to ask questions and assume patient care.
[2022-02-26 07:21] LABS: TOTAL CELLS COUNTED 100
[2022-02-26 07:22] LABS: PLATELET ESTIMATE NORMAL; POLYCHROMASIA FEW
[2022-02-26] MEDS: methylPREDNISolone sod succ 125mg/2ml vial IV SCH ×2 (07:50→20:01)
[2022-02-26] MEDS: buPROPion SR 150mg tablet PO SCH ×2 (07:50→19:59)
[2022-02-26] MEDS: pantoprazole 40mg Tablet.DR PO SCH (07:50)
[2022-02-26] MEDS: gabapentin 300mg capsule PO SCH ×2 (07:50→17:37)
[2022-02-26] MEDS: atorvastatin 20mg tablet PO SCH (07:50)
[2022-02-26] MEDS: QUEtiapine 25mg tablet PO SCH ×2 (07:50→14:10)
[2022-02-26] MEDS: cefTRIAXone 1g/NS 100ml IVPB 100 ML IV SCH (07:50)
[2022-02-26] MEDS: heparin, porcine 5000 units/ml vial SQ SCH ×2 (07:51→20:01)
[2022-02-26] MEDS: docusate sod 100mg capsule PO SCH ×2 (08:00→20:00)
[2022-02-26 10:00] VITALS: BP 162/82
[2022-02-26] MEDS: azithromycin/NS 500mg/250ml 250 ML IV SCH (10:39)
[2022-02-26] MEDS ORDERED: benzonatate 100mg capsule PO PRN (10:50)
[2022-02-26] MEDS: normal saline 1000ml 1,000 ML IV SCH ×3 (10:55→22:57)
[2022-02-26] MEDS ORDERED: CEFD300C21 PO (11:40)
[2022-02-26] MEDS ORDERED: PRED20TA PO (11:40)
[2022-02-26 18:00] VITALS: BP 116/92
--- NOTE | 2022-02-26 18:25 | NUR ---
Problems reprioritized. Patient report given, questions answered & plan of care reviewed with Kristin Doran RN.
[2022-02-26] MEDS: mirtazapine 15mg tablet PO SCH (20:00)
[2022-02-26] MEDS: cyclobenzaprine 10mg tablet PO SCH (20:00)
[2022-02-26] MEDS: quetiapine 100mg tablet PO SCH (20:01)
[2022-02-26 22:00] VITALS: BP_SYST 151; BP_SYST 159; BP_DIAS 76; BP_DIAS 82
[2022-02-27] MEDS: gabapentin 300mg capsule PO SCH ×3 (00:22→19:37)
[2022-02-27 05:00] VITALS: BP 159/86
--- NOTE | 2022-02-27 06:33 | NUR ---
Problems reprioritized. Patient report given, questions answered & plan of care reviewed with CHICO Vásquez.
[2022-02-27] MEDS: buPROPion SR 150mg tablet PO SCH ×2 (08:00→19:38)
[2022-02-27] MEDS: QUEtiapine 25mg tablet PO SCH ×2 (08:00→12:00)
[2022-02-27] MEDS: methylPREDNISolone sod succ 125mg/2ml vial IV SCH ×3 (08:00→20:00)
[2022-02-27 08:43] LABS: BASOPHILS # (AUTO) 0.1 X10'3 (0-0.2); BASOPHILS % (AUTO) 0.9 % (0-1); EOSINOPHILS % (AUTO) 0 % (0-6); HEMATOCRIT 31.6 % (35.0-45.0); HEMOGLOBIN 10.4 g/dl (12.0-16.0); LYMPHOCYTES # (AUTO) 1.7 X10'3 (1.1-4.8); LYMPHOCYTES % (AUTO) 10.9 % (21-51); MEAN CORPUSCULAR HEMOGLOBIN 31.6 PG (27.0-31.0); MEAN CORPUSCULAR VOLUME 95.6 FL (78-98); MEAN PLATELET VOLUME 7.9 FL (7.4-10.4); MONOCYTES # (AUTO) 0.8 X10'3 (0-0.9); MONOCYTES % (AUTO) 5.3 % (2-12); NEUTROPHILS # (AUTO) 12.8 X10'3 (1.8-7.7); NEUTROPHILS % (AUTO) 82.9 % (42-75); PLATELET COUNT 446 X10'3 (140-440); RED CELL DISTRIBUTION WIDTH 14.4 % (11.5-14.5); WHITE BLOOD COUNT 15.5 X10'3 (4.5-11.0)
[2022-02-27 09:11] LABS: ALANINE AMINOTRANSFERASE 60 U/L (12-78); ALBUMIN 2.3 G/DL (3.4-5.0); ALBUMIN/GLOBULIN RATIO 0.5 (1.1-1.5); ALKALINE PHOSPHATASE 126 IU/L (46-116); ANION GAP 10 (8-16); ASPARTATE AMINO TRANSFERASE 22 U/L (10-37); BILIRUBIN,TOTAL 0.2 MG/DL (0.1-1.0); BLOOD UREA NITROGEN 20 MG/DL (7-18); BUN/CREATININE RATIO 17.7 (6.6-38.0); CALCIUM 8.6 MG/DL (8.5-10.1); CHLORIDE 113 MMOL/L (99-107); CREATININE 1.13 MG/DL (0.40-0.90); GLUCOSE 111 MG/DL (70-104); POTASSIUM 4.2 MMOL/L (3.5-5.1); SODIUM 145 MMOL/L (135-145); TOTAL CARBON DIOXIDE 22.4 MMOL/L (24-32); TOTAL PROTEIN 6.5 G/DL (6.4-8.2); eGFR 48 ML/MIN
[2022-02-27 10:00] VITALS: BP 173/101
[2022-02-27] MEDS: HYDROcodone/acetaminophen 5mg/325mg tablet PO PRN ×3 (10:02→17:22)
[2022-02-27] MEDS: pantoprazole 40mg Tablet.DR PO SCH (10:03)
[2022-02-27] MEDS: docusate sod 100mg capsule PO SCH ×2 (10:03→19:37)
[2022-02-27] MEDS: atorvastatin 20mg tablet PO SCH (10:03)
[2022-02-27] MEDS: heparin, porcine 5000 units/ml vial SQ SCH ×2 (10:04→19:38)
[2022-02-27 10:05] LABS: PLATELET ESTIMATE INCREASED; POLYCHROMASIA FEW; TOTAL CELLS COUNTED 100
[2022-02-27] MEDS: azithromycin/NS 500mg/250ml 250 ML IV SCH (10:05)
[2022-02-27] MEDS: cefTRIAXone 1g/NS 100ml IVPB 100 ML IV SCH (10:05)
[2022-02-27] MEDS ORDERED: guaiFENesin/DM 10ml UD oral syrup PO PRN (10:30)
[2022-02-27] MEDS: normal saline 1000ml 1,000 ML IV SCH (17:23)
[2022-02-27 18:00] VITALS: BP 160/83
--- NOTE | 2022-02-27 18:50 | NUR ---
Gave report to Chasity since she is taking over this patient and she is switching nurse assignment with Pooja for another patient.
[2022-02-27] MEDS: cyclobenzaprine 10mg tablet PO SCH (19:39)
[2022-02-27] MEDS: quetiapine 100mg tablet PO SCH (19:49)
[2022-02-27] MEDS: mirtazapine 15mg tablet PO SCH (19:49)
[2022-02-27 21:49] VITALS: BP 144/72
--- NOTE | 2022-02-28 00:09 | NUR ---
Patient in room ORTHO 4012. I have received report from Chasity GOLDEN and had the opportunity to ask questions and assume patient care.
--- NOTE | 2022-02-28 00:13 | NUR ---
Nancy GOLDEN to take over care. Pt sleeping comfortably at this time.
[2022-02-28 06:00] VITALS: BP 156/86
--- NOTE | 2022-02-28 06:30 | NUR ---
Problems reprioritized. Patient report given, questions answered & plan of care reviewed with Yancy GOLDEN.
[2022-02-28] MEDS: cefuroxime axetil 250mg tablet PO SCH ×2 (07:22→20:03)
[2022-02-28] MEDS: prednisone 10mg tablet PO SCH (07:22)
[2022-02-28] MEDS: HYDROcodone/acetaminophen 5mg/325mg tablet PO PRN ×3 (07:23→16:58)
[2022-02-28] MEDS: QUEtiapine 25mg tablet PO SCH ×2 (07:23→11:24)
[2022-02-28] MEDS: docusate sod 100mg capsule PO SCH ×2 (07:23→20:03)
[2022-02-28] MEDS: azithromycin 250mg tablet PO SCH (07:23)
[2022-02-28] MEDS: gabapentin 300mg capsule PO SCH ×2 (07:24→20:03)
[2022-02-28] MEDS: heparin, porcine 5000 units/ml vial SQ SCH ×2 (07:24→20:08)
[2022-02-28] MEDS: atorvastatin 20mg tablet PO SCH (07:24)
[2022-02-28] MEDS: buPROPion SR 150mg tablet PO SCH ×2 (07:24→20:03)
[2022-02-28] MEDS: pantoprazole 40mg Tablet.DR PO SCH (07:24)
[2022-02-28 07:54] LABS: BASOPHILS % (AUTO) 0.2 % (0-1); EOSINOPHILS # (AUTO) 0.1 X10'3 (0-0.9); EOSINOPHILS % (AUTO) 0.6 % (0-6); HEMATOCRIT 30.3 % (35.0-45.0); HEMOGLOBIN 9.9 g/dl (12.0-16.0); LYMPHOCYTES # (AUTO) 2.1 X10'3 (1.1-4.8); LYMPHOCYTES % (AUTO) 17.5 % (21-51); MEAN CORPUSCULAR HEMOGLOBIN 30.6 PG (27.0-31.0); MEAN CORPUSCULAR HGB CONC 32.6 g/dL (33.0-36.5); MEAN CORPUSCULAR VOLUME 93.7 FL (78-98); MEAN PLATELET VOLUME 7.7 FL (7.4-10.4); MONOCYTES % (AUTO) 8.5 % (2-12); NEUTROPHILS # (AUTO) 8.8 X10'3 (1.8-7.7); NEUTROPHILS % (AUTO) 73.2 % (42-75); PLATELET COUNT 389 X10'3 (140-440); RED BLOOD COUNT 3.23 X10'6 (4.20-5.60); RED CELL DISTRIBUTION WIDTH 14.7 % (11.5-14.5)
[2022-02-28 08:03] LABS: ALANINE AMINOTRANSFERASE 56 U/L (12-78); ALBUMIN/GLOBULIN RATIO 0.5 (1.1-1.5); ALKALINE PHOSPHATASE 109 IU/L (46-116); ANION GAP 5 (8-16); ASPARTATE AMINO TRANSFERASE 28 U/L (10-37); BILIRUBIN,TOTAL 0.2 MG/DL (0.1-1.0); BLOOD UREA NITROGEN 19 MG/DL (7-18); BUN/CREATININE RATIO 20.2 (6.6-38.0); CALCIUM 8.3 MG/DL (8.5-10.1); CHLORIDE 112 MMOL/L (99-107); CREATININE 0.94 MG/DL (0.40-0.90); GLUCOSE 72 MG/DL (70-104); SODIUM 144 MMOL/L (135-145); TOTAL CARBON DIOXIDE 27.5 MMOL/L (24-32); TOTAL PROTEIN 5.7 G/DL (6.4-8.2); eGFR 59 ML/MIN
[2022-02-28 08:33] LABS: PLATELET ESTIMATE NORMAL; TOTAL CELLS COUNTED 100
[2022-02-28 08:34] LABS: POLYCHROMASIA FEW
[2022-02-28 10:00] VITALS: BP 157/72
[2022-02-28 14:00] VITALS: BP 155/77
--- NOTE | 2022-02-28 17:30 | NUR ---
Page to PAGER ID: [phone] MESSAGE: Dr. Montejo pt in room 4012B Macie Aguilar BP is 175/98 with no PRN's. Aimee
[2022-02-28 18:00] VITALS: BP 171/91
--- NOTE | 2022-02-28 18:24 | NUR ---
Problems reprioritized. Patient report given, questions answered & plan of care reviewed with Bozena GOLDEN.
--- NOTE | 2022-02-28 19:04 | NUR ---
Patient in room ORTHO 4012. I have received report from MICHELE GOLDEN and had the opportunity to ask questions and assume patient care.
[2022-02-28] MEDS: cyclobenzaprine 10mg tablet PO SCH (20:07)
[2022-02-28] MEDS: quetiapine 100mg tablet PO SCH (20:08)
[2022-02-28] MEDS: mirtazapine 15mg tablet PO SCH (20:08)
[2022-02-28 22:00] VITALS: BP 138/64
[2022-03-01 02:00] VITALS: BP 132/44
--- NOTE | 2022-03-01 06:06 | NUR ---
Received report from CHICO Seals
[2022-03-01 06:33] VITALS: BP 148/75
[2022-03-01] MEDS: buPROPion SR 150mg tablet PO SCH (07:09)
[2022-03-01] MEDS: atorvastatin 20mg tablet PO SCH (07:09)
[2022-03-01] MEDS: QUEtiapine 25mg tablet PO SCH ×2 (07:09→12:26)
[2022-03-01] MEDS: gabapentin 300mg capsule PO SCH (07:09)
[2022-03-01] MEDS: heparin, porcine 5000 units/ml vial SQ SCH (07:10)
[2022-03-01] MEDS: pantoprazole 40mg Tablet.DR PO SCH (07:10)
[2022-03-01] MEDS: azithromycin 250mg tablet PO SCH (07:10)
[2022-03-01] MEDS: cefuroxime axetil 250mg tablet PO SCH (07:12)
[2022-03-01] MEDS: prednisone 10mg tablet PO SCH (07:12)
[2022-03-01] MEDS: docusate sod 100mg capsule PO SCH (07:18)
[2022-03-01] MEDS: HYDROcodone/acetaminophen 5mg/325mg tablet PO PRN (07:23)
--- NOTE | 2022-03-01 11:04 | NUR ---
Initial: pt admitted w/ acute respiratory failure secondary to PNA, and sepsis per EMR. Currently on regular diet w/ avg intake 70% x 11 meals likely meeting minimum est nutrient needs. Pt possibly to be discharged today per MD note. LBM 02/27 receiving routine colace. No nutrition intervention implemented at this time, will continue to monitor Recs: 1. Continue Regular diet as tolerated 2. Monitor need for additional protein 3. Bowel care per rx 4. Weekly wts Addendum: 03/01/22 at [address] Amended: Links added.
--- NOTE | 2022-03-01 12:43 | NUR ---
Called report to Nazario
--- NOTE | 2022-03-01 14:19 | NUR ---
Patient discharged to [facility] via [facility] ambulance. Patient discharged in stable condition, all belongings sent with her. EMS personnel accompanied patient to ambulance and transported to [facility]. Patient did not have any IV. Instructions given to her and Swetha at [facility]. Left with no complications.
== END 2022-03-01 14:15 | DRG 871 ==
LOC: ER 16:15 → ED HOLD 22:57 → ORTHO 4S 02-24 05:48
PROVIDERS: ADMIT Family Medicine; ATTEND Family Medicine
DX: A41.9 Sepsis, unspecified organism (principal); N17.0 Acute kidney failure with tubular necrosis; J96.01 Acute respiratory failure with hypoxia; J15.9 Unspecified bacterial pneumonia; I50.32 Chronic diastolic (congestive) heart failure; N39.0 Urinary tract infection, site not specified; I13.0 Hypertensive heart and chronic kidney disease with heart failure and stage 1 through stage 4 chronic kidney disease, or unspecified chronic kidney disease; J44.0 Chronic obstructive pulmonary disease with (acute) lower respiratory infection; J44.1 Chronic obstructive pulmonary disease with (acute) exacerbation; E78.5 Hyperlipidemia, unspecified; Z20.822 Contact with and (suspected) exposure to COVID-19; B95.4 Other streptococcus as the cause of diseases classified elsewhere; D63.8 Anemia in other chronic diseases classified elsewhere; F12.10 Cannabis abuse, uncomplicated; F17.210 Nicotine dependence, cigarettes, uncomplicated; F20.9 Schizophrenia, unspecified; F31.9 Bipolar disorder, unspecified; G40.909 Epilepsy, unspecified, not intractable, without status epilepticus; G89.4 Chronic pain syndrome; B96.1 Klebsiella pneumoniae [K. pneumoniae] as the cause of diseases classified elsewhere; N18.9 Chronic kidney disease, unspecified; M54.50 Low back pain, unspecified; R19.7 Diarrhea, unspecified; Z88.5 Allergy status to narcotic agent; Z56.0 Unemployment, unspecified; Z79.899 Other long term (current) drug therapy; Z71.51 Drug abuse counseling and surveillance of drug abuser
CPT/HCPCS: 36415; 71046; 71250; 80053; 80061; 80305; 81001; 83036; 83540; 83550; 83605; 83735; 83880; 84100; 84145; 84484; 85007; 85025; 85379; 85610; 85730; 87040; 87070; 87077; 87081; 87088; 87186; 87635; 93005; 94640; 94760; 97110; 97116; 97161; 97530; 99285; C9803; G0378; J0456; J0696; J1644; J2930; J7030; J7512

== ENCOUNTER 2022-12-28 15:11 | Emergency (ER) | payer MEDICARE, MEDICAID ==
[~2022-12-28] VITALS: Ht 157.5 cm; Wt 65.9 kg
[~2022-12-28 15:11] MED LIST changes: +ATOR40TA PO; -ATOR40TA72 PO; -BUPR-72 PO; +BUPR200T41 PO; +CHOL20002 PO; +CLON0.1T2 PO; -CYCL-1 PO; +FLUT16SP NS; +GABA-534 PO; -GABA300C PO; -LORA-268 PO; +Lorazepam PO; +METH-797 PO; -MIRT-116 PO; +MIRT45TA79 PO; -MONT-40 PO; +PROP20TA6 PO; +QUET100T34 PO; -QUET300T2 PO; +RISP2TAB85 PO; +TRAZ-251 PO
[2022-12-28 15:39] LABS: BASOPHILS # (AUTO) 0.1 X10'3 (0-0.2); BASOPHILS % (AUTO) 1.2 % (0-1); EOSINOPHILS # (AUTO) 0.7 X10'3 (0-0.9); EOSINOPHILS % (AUTO) 9.2 % (0-6); HEMOGLOBIN 12.1 g/dl (12.0-16.0); LYMPHOCYTES # (AUTO) 2.4 X10'3 (1.1-4.8); LYMPHOCYTES % (AUTO) 29.7 % (21-51); MEAN CORPUSCULAR HEMOGLOBIN 32.5 PG (27.0-31.0); MEAN CORPUSCULAR HGB CONC 32.6 g/dL (33.0-36.5); MEAN CORPUSCULAR VOLUME 99.7 FL (78-98); MONOCYTES # (AUTO) 0.6 X10'3 (0-0.9); MONOCYTES % (AUTO) 7.9 % (2-12); NEUTROPHILS # (AUTO) 4.2 X10'3 (1.8-7.7); PLATELET COUNT 209 X10'3 (140-440); RED BLOOD COUNT 3.71 X10'6 (4.20-5.60); RED CELL DISTRIBUTION WIDTH 14.3 % (11.5-14.5); WHITE BLOOD COUNT 8.1 X10'3 (4.5-11.0)
[2022-12-28 16:05] LABS: ALANINE AMINOTRANSFERASE 32 U/L (12-78); ALBUMIN 3.2 G/DL (3.4-5.0); ALKALINE PHOSPHATASE 143 IU/L (46-116); ANION GAP 9 (8-16); ASPARTATE AMINO TRANSFERASE 22 U/L (10-37); BILIRUBIN,TOTAL 0.3 MG/DL (0.1-1.0); BLOOD UREA NITROGEN 20 MG/DL (7-18); BUN/CREATININE RATIO 14.8 (6.6-38.0); CALCIUM 8.9 MG/DL (8.5-10.1); CHLORIDE 110 MMOL/L (99-107); CREATININE 1.35 MG/DL (0.40-0.90); ETHANOL < 0.010 GM/DL (0.0-0.010); GLUCOSE 123 MG/DL (70-104); MAGNESIUM 2.1 MG/DL (1.5-2.4); POTASSIUM 4.3 MMOL/L (3.5-5.1); SODIUM 144 MMOL/L (135-145); TOTAL CARBON DIOXIDE 24.6 MMOL/L (24-32); TOTAL PROTEIN 6.4 G/DL (6.4-8.2); eGFR 39 ML/MIN
[2022-12-28 17:26] LABS: ABG BASE EXCESS -1.2 mmol/L (-2.0-2.0); ABG OXYGEN SATURATION 89.9 % (94-97); ABG PCO2 (T) 48.1 mmHg (32.0-45.0); ABG PO2 (T) 59.9 mmHg (75.0-100.0); ALLEN'S TEST POSITIVE; FCOHb 0.3 % (0.0-3.9); FMetHb 0.3 % (0.0-1.5); FO2Hb 89.4 % (94-97); TOTAL HEMOGLOBIN 12.5 G/dl (12.0-16.0)
[2022-12-28] MEDS ORDERED: ipratropium/albuterol 3ml nebule NEB ONE (17:45)
[2022-12-28] MEDS ORDERED: ipratropium/albuterol 3ml nebule ONE (17:46)
[2022-12-28] MEDS ORDERED: AZIT-31 PO (19:03)
[2022-12-28 19:23] VITALS: BP 128/78
== END 2022-12-28 19:26 | disposition home or self-care (01) ==
LOC: ER 15:11
DX: J40 Bronchitis, not specified as acute or chronic (principal); J44.9 Chronic obstructive pulmonary disease, unspecified; N18.9 Chronic kidney disease, unspecified; F31.9 Bipolar disorder, unspecified; F12.10 Cannabis abuse, uncomplicated; Z88.6 Allergy status to analgesic agent; Z88.5 Allergy status to narcotic agent; Z79.899 Other long term (current) drug therapy; Z79.1 Long term (current) use of non-steroidal anti-inflammatories (NSAID); Z79.2 Long term (current) use of antibiotics
CPT/HCPCS: 36415; 36600; 70450; 71045; 80053; 80320; 82140; 82803; 83735; 83880; 84484; 85018; 85025; 93005; 94640; 94760; 99285; A4615

== ENCOUNTER 2023-04-11 13:58 | Inpatient (IN) | payer MEDICARE, MEDICAID ==
[~2023-04-11] VITALS: Ht 167.6 cm; Wt 102.0 kg
[~2023-04-11 13:58] MED LIST changes: +ALBU17AE26 PO; -ATOR40TA PO; +ATOR40TA72 PO; +BACL20TA PO; +BUDE10.26 INH; +BUPR200T30 PO; -BUPR200T41 PO; +CALC600T35 PO; -CHOL20002 PO; +CLON0.1T PO; -CLON0.1T2 PO; +ESCI-8 PO; +FEXO-236 PO; -FLUT16SP NS; +FLUT16SP26 BOTHNARES; +IPRA3AMP31; +LORA-268 PO; -Lorazepam PO; -METH-797 PO; +MIRT-88 PO; -MIRT45TA79 PO; +NAPR-996 PO; +OMEP20CA16 PO; +QUET300T2 PO; +RISP4TAB73 PO; -TRAZ-251 PO
[2023-04-11 15:13] LABS: BASOPHILS # (AUTO) 0.1 X10'3 (0-0.2); BASOPHILS % (AUTO) 0.8 % (0-1); EOSINOPHILS # (AUTO) 0.4 X10'3 (0-0.9); EOSINOPHILS % (AUTO) 4.8 % (0-6); HEMATOCRIT 30.4 % (35.0-45.0); HEMOGLOBIN 9.5 g/dl (12.0-16.0); LYMPHOCYTES # (AUTO) 1.8 X10'3 (1.1-4.8); LYMPHOCYTES % (AUTO) 22.5 % (21-51); MEAN CORPUSCULAR HEMOGLOBIN 30.9 PG (27.0-31.0); MEAN CORPUSCULAR HGB CONC 31.4 g/dL (33.0-36.5); MEAN CORPUSCULAR VOLUME 98.4 FL (78-98); MEAN PLATELET VOLUME 8.9 FL (7.4-10.4); MONOCYTES # (AUTO) 0.9 X10'3 (0-0.9); MONOCYTES % (AUTO) 11.4 % (2-12); NEUTROPHILS % (AUTO) 60.5 % (42-75); PLATELET COUNT 178 X10'3 (140-440); RED BLOOD COUNT 3.09 X10'6 (4.20-5.60); RED CELL DISTRIBUTION WIDTH 15.6 % (11.5-14.5); WHITE BLOOD COUNT 8.2 X10'3 (4.5-11.0)
[2023-04-11] MEDS ORDERED: naloxone 2mg/2ml inj IV STA (15:13)
[2023-04-11 15:19] LABS: ALANINE AMINOTRANSFERASE 15 U/L (12-78); ALBUMIN 2.4 G/DL (3.4-5.0); ALBUMIN/GLOBULIN RATIO 0.9 (1.1-1.5); ALKALINE PHOSPHATASE 185 IU/L (46-116); ANION GAP 3 (8-16); ASPARTATE AMINO TRANSFERASE 18 U/L (10-37); BILIRUBIN,TOTAL 0.2 MG/DL (0.1-1.0); BLOOD UREA NITROGEN 53 MG/DL (7-18); BUN/CREATININE RATIO 28.6 (10.0-20.0); CALCIUM 8.4 MG/DL (8.5-10.1); CHLORIDE 110 MMOL/L (99-107); CREATININE 1.85 MG/DL (0.40-0.90); GLUCOSE 81 MG/DL (70-104); POTASSIUM 5.3 MMOL/L (3.5-5.1); SODIUM 144 MMOL/L (135-145); TOTAL CARBON DIOXIDE 31.4 MMOL/L (24-32); TOTAL PROTEIN 5.2 G/DL (6.4-8.2); eGFR 27 ML/MIN
[2023-04-11] MEDS ORDERED: albuterol 2.5 MG/3 ML nebule NEB ONE (16:05)
[2023-04-11] MEDS ORDERED: normal saline 1000ml 1,000 ML IV ONE (16:05)
[2023-04-11 17:37] LABS: ABG BASE EXCESS -2.5 mmol/L (-2.0-2.0); ABG HCO3 24.7 mmol/L (22.0-26.0); ABG OXYGEN SATURATION 90.8 % (94-97); ABG PCO2 (T) 52.5 mmHg (32.0-45.0); ABG PO2 (T) 66.1 mmHg (75.0-100.0); ALLEN'S TEST POSITIVE; FCOHb 0.2 % (0.0-3.9); FLOW 5 L/min; FMetHb 0.2 % (0.0-1.5); FO2Hb 90.4 % (94-97); PATIENT TEMPERATURE 36.5; TOTAL HEMOGLOBIN 11.5 G/dl (12.0-16.0)
[2023-04-11] MEDS ORDERED: magnesium 2GM in 50ml NS 50 ML IV PRN (17:40)
[2023-04-11] MEDS ORDERED: ondansetron/PF 4mg/2ml inj IV PRN (17:40)
[2023-04-11] MEDS ORDERED: potassium Cl 20 mEq SR tablet PO PRN ×2 (17:40)
[2023-04-11] MEDS ORDERED: magnesium 4gm in 100ml NS 100 ML IV PRN (17:40)
[2023-04-11] MEDS ORDERED: acetaminophen 325mg tablet PO PRN (17:40)
[2023-04-11] MEDS ORDERED: magnesium Cl slow-release 64mg tablet PO PRN ×2 (17:40)
[2023-04-11] MEDS ORDERED: potassium Cl 40MEQ/1/2NS 520ml 520 ML IV PRN (17:40)
[2023-04-11 18:34] LABS: CLARITY,URINE CLEAR (Clear); COLOR,URINE YELLOW (Yellow); GLUCOSE, URINE NEGATIVE (Neg); KETONES,URINE NEGATIVE (Neg); LEUKOCYTE ESTERASE ,URINE NEGATIVE (Neg); NITRITES, URINE NEGATIVE (Neg); OCCULT BLOOD,URINE NEGATIVE (Neg); PROTEIN,URINE NEGATIVE (Neg); UROBILINOGEN,URINE 0.2 E.U/dL (0.2-1.0)
[2023-04-11 18:43] LABS: UA COLLECTION TYPE CLN CATCH MIDSTREAM
[2023-04-11] MEDS: normal saline 1000ml 1,000 ML IV SCH (19:12)
[2023-04-11 19:25] VITALS: BP 136/75
[2023-04-11] MEDS: K and/or MAG REPLACEMENT MC SCH (20:00)
[2023-04-11] MEDS: heparin, porcine 5000 units/ml vial SQ SCH (21:00)
[2023-04-11] MEDS: methylPREDNISolone sod succ/PF 40mg inj. IV SCH (21:01)
[2023-04-11 23:03] VITALS: BP 132/72
[2023-04-12 02:00] VITALS: BP 142/70
--- NOTE | 2023-04-12 03:21 | NUR ---
pt's bladder was noticed to be distented and tender to touch, bladder scan was done and 768ml recorded. MD was notified and he ordered placement of reinoso catheter. Output after reinoso placement was 1000ml. Pt verbalized great relief.
[2023-04-12] MEDS: normal saline 1000ml 1,000 ML IV SCH (04:08)
--- NOTE | 2023-04-12 06:35 | NUR ---
Problems reprioritized. Patient report given, questions answered & plan of care reviewed with Mark.
--- NOTE | 2023-04-12 06:37 | NUR ---
Patient in room PCU 3015. I have received report from Suzanne GOLDEN and had the opportunity to ask questions and assume patient care.
[2023-04-12 07:07] LABS: BASOPHILS # (AUTO) 0.1 X10'3 (0-0.2); BASOPHILS % (AUTO) 0.9 % (0-1); EOSINOPHILS % (AUTO) 0.2 % (0-6); HEMATOCRIT 32.4 % (35.0-45.0); HEMOGLOBIN 10.4 g/dl (12.0-16.0); LYMPHOCYTES # (AUTO) 0.9 X10'3 (1.1-4.8); LYMPHOCYTES % (AUTO) 13.3 % (21-51); MEAN CORPUSCULAR HEMOGLOBIN 31.2 PG (27.0-31.0); MEAN CORPUSCULAR VOLUME 97.2 FL (78-98); MEAN PLATELET VOLUME 8.7 FL (7.4-10.4); MONOCYTES # (AUTO) 0.2 X10'3 (0-0.9); MONOCYTES % (AUTO) 2.9 % (2-12); NEUTROPHILS # (AUTO) 5.7 X10'3 (1.8-7.7); NEUTROPHILS % (AUTO) 82.7 % (42-75); PLATELET COUNT 190 X10'3 (140-440); RED BLOOD COUNT 3.34 X10'6 (4.20-5.60); RED CELL DISTRIBUTION WIDTH 15.2 % (11.5-14.5); WHITE BLOOD COUNT 6.9 X10'3 (4.5-11.0)
[2023-04-12 07:13] LABS: ALBUMIN 2.5 G/DL (3.4-5.0); ANION GAP 0 (8-16); BLOOD UREA NITROGEN 34 MG/DL (7-18); BUN/CREATININE RATIO 27.9 (10.0-20.0); CALCIUM 8.6 MG/DL (8.5-10.1); CHLORIDE 111 MMOL/L (99-107); CREATININE 1.22 MG/DL (0.40-0.90); GLUCOSE 120 MG/DL (70-104); MAGNESIUM 2.3 MG/DL (1.5-2.4); POTASSIUM 5.8 MMOL/L (3.5-5.1); SODIUM 140 MMOL/L (135-145); TOTAL CARBON DIOXIDE 28.9 MMOL/L (24-32); eGFR 44 ML/MIN
[2023-04-12] MEDS: K and/or MAG REPLACEMENT MC SCH (08:00)
[2023-04-12] MEDS: methylPREDNISolone sod succ/PF 40mg inj. IV SCH (08:46)
[2023-04-12] MEDS: heparin, porcine 5000 units/ml vial SQ SCH (08:46)
--- NOTE | 2023-04-12 12:55 | NUR ---
Pt was DC'd as per 's orders. Pt was unhooked from all IV and tele. Pt had no belongings with her when admitted. Pt is being sent back to [facility] and was picked up by [facility]. The [facility] team picked her up and wheeled her down to the lobby to be driven by the [facility]. I called report to the facility to update staff about her arrival, and I called her contact lens technician to inform them of transfer to her original facility, however no one picked up and I left a voicemail for them. I left a call back number in case they have any questions.
== END 2023-04-12 12:40 | DRG 189 ==
LOC: ER 13:58 → PCU 3S 17:43
PROVIDERS: ADMIT Internal Medicine; ATTEND Internal Medicine
DX: J96.02 Acute respiratory failure with hypercapnia (principal); N17.0 Acute kidney failure with tubular necrosis; G92.8 Other toxic encephalopathy; J44.1 Chronic obstructive pulmonary disease with (acute) exacerbation; E78.00 Pure hypercholesterolemia, unspecified; E86.0 Dehydration; D63.8 Anemia in other chronic diseases classified elsewhere; F20.9 Schizophrenia, unspecified; F31.9 Bipolar disorder, unspecified; F41.9 Anxiety disorder, unspecified; G89.29 Other chronic pain; T50.915A Adverse effect of multiple unspecified drugs, medicaments and biological substances, initial encounter; I95.9 Hypotension, unspecified; I12.9 Hypertensive chronic kidney disease with stage 1 through stage 4 chronic kidney disease, or unspecified chronic kidney disease; N18.9 Chronic kidney disease, unspecified; Z87.891 Personal history of nicotine dependence; Z88.6 Allergy status to analgesic agent
CPT/HCPCS: 36415; 36600; 71045; 80048; 80053; 81003; 82803; 83605; 83735; 83880; 84484; 85018; 85025; 85379; 87040; 87081; 93005; 94640; 94760; 99285; G0378; J1644; J2310; J2920; J7030